=== PATIENT | female | born 1995 | race Caucasian/White ===

== ENCOUNTER 2020-05-22 13:45 | Outpatient (REF) | payer MEDICAID, SELFPAY | END 2020-05-22 13:46 | disposition home or self-care (01) | LOC: HO.LAB 13:45 | PROVIDERS: Visit Provider Internal Medicine | DX: Z20.828 Contact with and (suspected) exposure to other viral communicable diseases (principal) | CPT/HCPCS: C9803; U0003 ==

== ENCOUNTER → 2020-09-27 11:39 | Outpatient (BNVA) | payer MEDICAID, SELFPAY | PROVIDERS: Visit Provider Obstetrics & Gynecology ==

== ENCOUNTER 2020-10-10 09:59 | Outpatient (REF) | payer MEDICAID, SELFPAY ==
[2020-10-10 10:33] LABS: COVID-19 Test Negative (Negative); IDNOW Serial# 55D5AD1C
== END 2020-10-10 10:00 | disposition home or self-care (01) ==
LOC: HO.LAB 09:59
PROVIDERS: Visit Provider Internal Medicine
DX: Z20.822 Contact with and (suspected) exposure to COVID-19 (principal)
CPT/HCPCS: 36415; 87635; C9803

== ENCOUNTER 2021-03-23 13:30 | Emergency (ER) | payer MEDICAID, SELFPAY ==
[2021-03-23 13:33] VITALS: BP 107/56; PULSE 71; RESP 18; TEMP 36.6; O2SAT 98; BMI 31.1
== END 2021-03-23 18:13 | disposition left against medical advice (07) ==
PROVIDERS: Emergency Provider Emergency Medicine; PCP Family Medicine
DX: R51.9 Headache, unspecified (principal)
CPT/HCPCS: 99281; 99282

== ENCOUNTER 2022-02-20 19:01 | Emergency (ER) | payer MEDICAID, SELFPAY | END 2022-02-20 21:36 | disposition left against medical advice (07) | PROVIDERS: Emergency Provider Emergency Medicine | DX: R10.30 Lower abdominal pain, unspecified (principal) ==

== ENCOUNTER 2022-03-18 16:57 | Outpatient (REF) | payer MEDICAID, SELFPAY | END 2022-03-18 16:58 | disposition home or self-care (01) | LOC: HO.LNP 16:57 | PROVIDERS: Visit Provider Obstetrics & Gynecology | DX: Z32.02 Encounter for pregnancy test, result negative (principal); R87.612 Low grade squamous intraepithelial lesion on cytologic smear of cervix (LGSIL) | CPT/HCPCS: 57454; 81025; 88305 ==

== ENCOUNTER → 2022-04-01 14:55 | Outpatient (BNVA) | payer MEDICAID, SELFPAY | PROVIDERS: Visit Provider Obstetrics & Gynecology | DX: Z01.818 Encounter for other preprocedural examination (principal); N87.0 Mild cervical dysplasia | CPT/HCPCS: 99212 ==

== ENCOUNTER 2022-09-11 08:14 | Emergency (ER) | payer MEDICAID, SELFPAY ==
--- NOTE | ~2022-09-11 | CT_ITS ---
EXAMINATION: CT HEAD WITHOUT CONTRAST CLINICAL INFORMATION: History of stabbing headache. COMPARISON: 03/21/2019 TECHNIQUE: Contiguous axial imaging was performed from the skull base to vertex without intravenous administration of contrast. This CT examination was performed using dose optimization techniques as appropriate, variously including the following: *Automated exposure control *Adjustment of mA and/or kV according to patient size (this includes techniques or standardized protocols for targeted exams where dose is matched to indication/reason for exam; i.e. extremities or head) *Use of iterative reconstruction technique DLP: 690 mGy-cm FINDINGS: The brain parenchyma has normal attenuation. The ya-white matter differentiation is well preserved. No evidence of an acute major vascular territory infarction. No intracranial hemorrhage, extra-axial fluid collection, focal mass effect or midline shift. The ventricles have normal size and configuration; no hydrocephalus. The brainstem and cerebellum have a normal appearance. The cerebellar tonsils are in normal position. The calvarium is intact. The visualized paranasal sinuses, mastoid air cells and middle ear cavities are well aerated. The orbits and globes are unremarkable. The temporomandibular joints are normal. CT/CT head/brain wo IV con IMPRESSION: No acute intracranial pathology.
[2022-09-11 08:19] VITALS: BP 108/48; PULSE 76; RESP 18; TEMP 36.6; O2SAT 99; BMI 31.4
--- NOTE | 2022-09-11 08:31 | ED_ITS ---
HPI - General Adult General Chief complaint: Headache Stated complaint: Stabbing pain in head Time Seen by Provider: 09/11/22 08:30 Source: patient Mode of arrival: ambulatory Limitations: no limitations History of Present Illness HPI narrative: 27 y.o female w/ a PMHx of migraines, TONI 1, who presents to the ED from home c/o of severe R-sided headache with R eye involvement. Patient states she woke up suddenly from her sleep at 3am w/ sharp eye and head pain, associated with dizziness, nausea, bilateral leg weakness, and R-sided visual disturbances, described as flashing bright light which lasted 2 hours. She reports that these symptoms are unlike her typical migraines, which usually have an insidious onset and are not as painful. Her symptoms have mostly resolved, but continues to have a diffuse headache and some intermittent dizziness. She denies previous head trauma, fevers, chills, loss of vision, vomiting, current weakness, numbness or tingling, or trouble speaking/swallowing. Onset (ago): hour(s) Location: head Severity: mild Severity scale (1-10): 3 Quality: dull Pain Consistency: constant Relieving factors: none Exacerbating factors: none Associated symptoms: denies other symptoms Treatments prior to arrival: none Related Data Home Medications Medication Instructions Recorded Confirmed diclofenac sodium 1 % topical gel 2 g topical BID PRN pain 06/09/22 06/09/22 fluticasone propionate 50 2 spray intranasal DAILY 06/09/22 06/09/22 mcg/actuation nasal spray,suspension loratadine 5 mg-pseudoephedrine ER 1 tab PO Q12H 06/09/22 06/09/22 120 mg tablet,extended release,12hr (Claritin-D 12 Hour) Allergies Allergy/AdvReac Type Severity Reaction Status Date / Time amoxicillin [Amoxicillin] Allergy Intermediate SEVERE Verified 05/26/22 15:14 FACIAL SWELLING Penicillins Allergy Intermediate SEVERE Verified 05/05/22 08:56 FACIAL SWELLING Review of Systems Constitutional: Constitutional: Reports no additional constitutional complaints, Denies chills, Denies fever(s), Reports headache(s) and Denies night sweats Eyes: Eyes: Reports no additional eye complaints, Denies blurry vision, Denies change in vision, Denies diplopia, Denies eye discharge, Denies loss of peripheral vision, Denies loss of vision and Denies eye pain ENT: Reports headache(s) Cardiovascular: Cardiovascular: Reports no additional cardiovascular complaints, Denies chest pain, Denies lightheadedness, Denies Loss of Consciousness and Denies dyspnea Respiratory: Respiratory: Reports no additional respiratory complaints and Denies dyspnea Gastrointestinal: Gastrointestinal: Reports no additional gastrointestinal complaints, Denies abdominal pain, Denies melena, Denies hematochezia, Denies change in bowel habits, Denies change in stool character, Reports nausea and Denies vomiting Genitourinary: Genitourinary: Denies hematuria, Denies urinary frequency, Denies dysuria, Denies urinary incontinence, Denies urinary hesitancy and Denies urinary urgency Musculoskeletal: Musculoskeletal: Reports no additional musculoskeletal complaints, Reports muscle weakness (Bilateral legs ), Denies numbness and Denies tingling Neurologic: Denies Abnormal speech present, Denies confusion, Reports headache(s), Denies loss of vision, Denies numbness and Denies tingling Psychiatric: Psychiatric: Reports no additional psychiatric complaints and Denies confusion Endocrine: Endocrine: Reports no additional endocrine complaints Hematologic/Lymphatic: Hematologic/Lymphatic: Reports no additional hematologic/lymphatic complaints Allergic/Immunologic: Allergic/Immunologic: Reports no additional allergic/immunologic complaints PMFSH Past Medical History Attestation statement: The following information was validated with the patient. Source: old records reviewed and nursing notes reviewed Medical History Anxiety Cyst of brain FHx: migraine headaches Surgical History History of appendectomy Hx of section Social History Social History Alcohol intake: current Alcohol intake frequency: holidays/special occasions only Alcohol type: wine Smoked in Last 30 Days: No Use of substances other than those prescribed or required for medical reasons: Yes Substance Use Type: Marijuana Substance Use Frequency: Occasionally Advance Directives: No Advance Directives Information Provided: Yes Patient : No Physical Exam ED Vital Signs: Vital Signs - 24 hr 09/11/22 08:19 09/11/22 09:01 09/11/22 09:53 Temperature 98 F Pulse Rate 76 71 62 Respiratory Rate 18 16 18 Blood Pressure 108/48 L 102/52 L 102/66 Pulse Oximetry 99 98 99 Oxygen Delivery Method Room Air Room Air Room Air 09/11/22 10:56 Temperature Pulse Rate 60 Respiratory Rate 16 Blood Pressure 112/73 Pulse Oximetry 100 Oxygen Delivery Method Room Air BMI result Body Mass Index 31.4 Const General: cooperative, no acute distress, alert and awake; No confusion Nutritional Appearance: well nourished Orientation/consciousness: patient oriented x3 and No confusion Limitations: no limitations HENMT Head: Yes normal to inspection and Yes atraumatic Ears: hearing grossly normal bilaterally and external ears normal General nose exam: Normal external nose present, no nasal discharge noted and no epistaxis Face and sinus: Yes normal facial exam, No abrasion and No laceration Mouth: Normal oral and palatal mucosa present, no drooling and no muffled voice Eyes General: appearance normal, both eyes and all related structures Periorbital: periorbital findings normal Eyelids: Yes eyelids normal Conjunctivae: conjunctivae normal Pupils: Equal, round and reactive pupils present EOM: EOMs intact bilaterally Neck Neck: Yes normal visual inspection, Yes full ROM, Yes no lymphadenopathy and Yes no meningeal signs Chest Chest palpation & inspection: normal inspection of the chest Resp Effort & Inspection: normal respiratory effort and able to speak in complete sentences Auscultation: clear to auscultation bilaterally Cardio Rate: regular rate Heart sounds: S1 normal heart sound present and S2 normal heart sound present GI Inspection: Yes normal to inspection Palpation (GI): Soft to palpation, not firm, nontender, no guarding and not rigid Neuro General: patient oriented x3, moves all extremities, Normal light touch and pain sensation, no meningeal signs, no focal motor deficits, CN's II-XI intact bilaterally and No confusion Cranial nerves: Yes CN's II-XII intact bilaterally and Yes Equal, round and reactive pupils present Cognition (Neuro): normal cognition Speech: No Abnormal speech present Motor exam (neuro): 5/5 motor strength present throughout Sensory Exam: Normal double simultaneous stimulation for sensation Coordination: [id number] test normal Extrem General: Yes normal to inspection, Yes full ROM and Yes capillary refill normal Psych Appearance: grossly normal Mental Status: mental status grossly normal Affect: normal affect Attitude: cooperative Thought process: Normal thought process present Thought content: Normal thought content present Insight: Good insight present (Psych) Medications Administered Discontinued Medications Generic Name Dose Route Start Last Admin Trade Name Freq PRN Reason Stop Dose Admin Sodium Chloride 1,000 mls @ 999 mls/hr 09/11/22 08:45 09/11/22 10:55 Ns IV 09/11/22 09:45 Infused .Q1H1M JEAN PAUL Infusion Ketorolac Tromethamine 15 mg 09/11/22 08:37 09/11/22 09:50 Ketorolac Tromethamine 15 Mg/Ml Vial IVPUSH 09/11/22 08:38 15 mg ONCE ONE Administration Ondansetron HCl 4 mg 09/11/22 08:37 09/11/22 09:50 Ondansetron Hcl 4 Mg/2 Ml Vial IVPUSH 09/11/22 08:38 4 mg ONCE ONE Administration Medical Decision Making Medical Decision Making MDM Narrative: 27 y.o female w/ a PMHx of migraines, TONI 1, who presents to the ED from home c/o of severe R-sided headache with R eye involvement. Patient states she woke up suddenly from her sleep at 3am w/ sharp eye and head pain, associated with dizziness, nausea, bilateral leg weakness, and R-sided visual disturbances, described as flashing bright light which lasted 2 hours. On exam patient is well-appearing, NAD, VSS. Neruo exam shows PERRLA, no facial droop or slurred speech appreciated. CN I-XII intact. Moving all 4 extremities with sensation intact. Patient's lab work was unremarkable. Patient's head CT was unremarkable. Patient was given IV toradol, fluids, and Zofran which she stated helped her symptoms significantly. I stressed the importance of the patient following up with her primary care provider and a neurologist. I stressed the importance of the patient returning to the emergency department immediately if her symptoms were to worsen or if she were to develop any dizziness, nausea, vomiting, blurry vision, double vision, chest pain, shortness of breath, or any other symptoms. Patient verbalized agreement and understanding with this treatment plan and discharge. Differential Diagnosis Differential Diagnoses: The differential diagnosis associated with the presentation includes complex migraine Lab Data [facility] Lab Attestation statement: I reviewed the patient's lab results. 09/11/22 09:17 09/11/22 09:17 Labs: Lab Results 09/11/22 09/11/22 Range/Units 09:17 09:17 WBC 8.5 (4.8-10.8) X10*3/uL RBC 4.58 (4.20-5.50) X10*6/uL Hgb 13.1 (12.0-16.0) g/dl Hct 40.8 (37.0-47.0) % MCV 89.1 (80.0-98.0) fL MCH 28.6 (27.0-33.0) pg MCHC 32.1 (31.0-35.0) g/dl RDW 13.4 (11.0-16.0) % Plt Count 310 (160-400) X10*3/uL MPV 9.5 (9.4-12.3) fL Immature Gran % (Auto) 0.2 (0.0-0.4) % Neut % (Auto) 75.8 H (45-73) % Lymph % (Auto) 16.3 L (20-40) % [place] % (Auto) 6.6 (2-11) % Eos % (Auto) 0.7 (0-4) % Baso % (Auto) 0.4 (0-2) % Lymph # (Auto) 1.4 (1.2-4.9) X10*3/uL [place] # (Auto) 0.6 (0.1-1.2) X10*3/uL Eos # (Auto) 0.1 (0.0-0.4) X10*3/uL Baso # (Auto) 0.0 (0.0-0.2) X10*3/uL Abs Immat Gran (auto) 0.02 (0.00-0.03) X10*3/uL Absolute Neuts (auto) 6.4 (2.0-8.3) x10*3/uL Absolute Nucleated RBC 0.000 (0.0-0.012) X10*3/uL Nucleated RBC % (auto) 0.0 (0.0-0.2) /100WBC Sodium 139 (135-145) mmol/L Potassium 4.2 (3.3-5.1) mmol/L Chloride 103 (96-108) mmol/L Carbon Dioxide 28 (22-29) mmol/L Anion Gap 12 (12-20) BUN 13 (9-16) mg/dL Creatinine 0.78 (0.5-1.4) mg/dL Estim Creat Clear Calc 119.2 Estimated GFR > 60 Random Glucose 99 (60-115) mg/dL Calcium 8.9 (8.4-10.2) mg/dL Magnesium 2.0 (1.6-2.6) mg/dL Total Bilirubin 0.4 (0.0-1.0) mg/dL AST 21 (5-31) U/L ALT 15 (0-31) U/L Alkaline Phosphatase 43 (39-117) U/L Total Protein 7.0 (6.5-8.0) g/dL Albumin 4.0 (3.5-5.0) g/dL Beta HCG, Quant < 2 mIU/mL Independent Interpretation I performed an independent interpretation of an: CT Scan Interpretation: My interpretation is in agreement with the radiologist's impression of this imaging study. EXAMINATION: CT HEAD WITHOUT CONTRAST CLINICAL INFORMATION: History of stabbing headache.? COMPARISON: 03/21/2019? TECHNIQUE: Contiguous axial imaging was performed from the skull base to vertex without intravenous administration of contrast. This CT examination was performed using dose optimization techniques as appropriate, variously including the following: *Automated exposure control *Adjustment of mA and/or kV according to patient size (this includes techniques or standardized protocols for targeted exams where dose is matched to indication/reason for exam; i.e. extremities or head) *Use of iterative reconstruction technique DLP: 690 mGy-cm FINDINGS: The brain parenchyma has normal attenuation. The ya-white matter differentiation is well preserved. No evidence of an acute major vascular territory infarction. No intracranial hemorrhage, extra-axial fluid collection, focal mass effect or midline shift. The ventricles have normal size and configuration; no hydrocephalus. The brainstem and cerebellum have a normal appearance. The cerebellar tonsils are in normal position. The calvarium is intact. The visualized paranasal sinuses, mastoid air cells and middle ear cavities are well aerated. The orbits and globes are unremarkable. The temporomandibular joints are normal. CT/CT head/brain wo IV con IMPRESSION: No acute intracranial pathology. Dictated By: Jake Ma MD Signed By: Electronically signed by Jake Ma MD 09/11/22 0921 Discharge Plan Discharge Clinical Impression: Migraine Patient Disposition: Home, Self-Care Instructions: Migraine Headache (ED) Additional Instructions: Follow up with your primary care provider. Return to the emergency department immediately if your symptoms worsen or if you develop any dizziness, shortness of breath, difficulty breathing, chest pain, blurry vision, loss of vision, nausea, vomiting, abdominal pain, fever, chills, back pain, or any other complaints. Prescriptions: No Action Claritin-D 12 Hour 5-120 mg Tablet Extended Release 12 Hr 1 tab PO Q12H fluticasone propionate 50 mcg/actuation spray,suspension 2 spray intranasal DAILY diclofenac sodium 1 % gel 2 g topical BID PRN (Reason: pain) Referrals: [facility] [place] Group] (Call to establish and follow up with a neurologist. ) Maryanne Crockett MD [Primary Care Provider] - Stand Alone Forms: Work/School Release Interventions: ED Discharge Assessment Last Done: 09/11/22 10:56 Discharge Date/Time: 09/11/22 10:58 Print Language: Macedonian
--- NOTE | 2022-09-11 08:59 | PC.NURSE ---
Patient felt well all day yesterday and when she went to bed but at 0300 she woke from sleep with a sharp pain starting behind her eyes and going up all in her head. Patient with hx of migraines but states this one felt different. Patient took excedrin this morning and iced her head. Symptoms are better but patient wanted to get checked out because the whole ordeal freaked her out.
[2022-09-11 09:01] VITALS: BP 102/52; PULSE 71; RESP 16; O2SAT 98
[2022-09-11 09:33] LABS: MANUAL DIFF FLAG NO
[2022-09-11 09:41] LABS: Basophils Percent Auto 0.4 % (0-2); Eosinophils Absolute Auto 0.1 X10*3/uL (0.0-0.4); Eosinophils Percent Auto 0.7 % (0-4); Hematocrit 40.8 % (37.0-47.0); Hemoglobin 13.1 g/dl (12.0-16.0); Imm Gran Abs Auto 0.02 X10*3/uL (0.00-0.03); Imm Gran Pct Auto 0.2 % (0.0-0.4); Lymphocytes Absolute Auto 1.4 X10*3/uL (1.2-4.9); Lymphocytes Percent Auto 16.3 % (20-40); Mean Corpuscular HGB Conc 32.1 g/dl (31.0-35.0); Mean Corpuscular Hemoglobin 28.6 pg (27.0-33.0); Mean Corpuscular Volume 89.1 fL (80.0-98.0); Mean Platelet Volume 9.5 fL (9.4-12.3); Monocytes Absolute Auto 0.6 X10*3/uL (0.1-1.2); Monocytes Percent Auto 6.6 % (2-11); Neutrophils Absolute Auto 6.4 x10*3/uL (2.0-8.3); Neutrophils Percent Auto 75.8 % (45-73); Platelet Count 310 X10*3/uL (160-400); Red Blood Count 4.58 X10*6/uL (4.20-5.50); Red Cell Distribution Width 13.4 % (11.0-16.0); White Blood Count 8.5 X10*3/uL (4.8-10.8)
[2022-09-11] MEDS: Ketorolac Tromethamine 15 MG/ML VIAL IVPUSH (09:50)
[2022-09-11] MEDS: 0.9 % Sodium Chloride 1,000 ML 999 ML IV (09:50)
[2022-09-11] MEDS: ondansetron HCL 4 MG/2 ML VIAL IVPUSH (09:50)
[2022-09-11 09:53] VITALS: BP 102/66; PULSE 62; RESP 18; O2SAT 99
--- NOTE | 2022-09-11 09:56 | PC.NURSE ---
pt is alert and oriented, skin appropriate for ethnicity, respirations even and unlabored, pt reports having a headache-hx of migraines with nausea but denies light and noise sensitivity, pain at 5/10 but also states feeling lightheaded/dizzy, vs stable and all neuro intact
[2022-09-11 09:59] LABS: Alanine Aminotransferase 15 U/L (0-31); Alkaline Phosphatase 43 U/L (39-117); Anion Gap 12 (12-20); Aspartate Amino Transferase 21 U/L (5-31); Bilirubin Total 0.4 mg/dL (0.0-1.0); Blood Urea Nitrogen 13 mg/dL (9-16); Calcium 8.9 mg/dL (8.4-10.2); Carbon Dioxide 28 mmol/L (22-29); Chloride 103 mmol/L (96-108); Creatinine Clr Calc Pharmacy 119.2; Estimated Glomerular Filt Rate > 60; Glucose Random 99 mg/dL (60-115); HCG Quantitative < 2 mIU/mL; Potassium 4.2 mmol/L (3.3-5.1); Sodium 139 mmol/L (135-145)
[2022-09-11 10:56] VITALS: BP 112/73; PULSE 60; RESP 16; O2SAT 100
== END 2022-09-11 10:58 | disposition home or self-care (01) ==
PROVIDERS: Physician Assistant Medical; Emergency Provider Emergency Medicine; PCP Family Medicine
DX: G43.909 Migraine, unspecified, not intractable, without status migrainosus (principal); F12.90 Cannabis use, unspecified, uncomplicated
CPT/HCPCS: 36415; 70450; 80053; 83735; 84702; 85025; 96361; 96374; 96375; 99284; 99285; J1885; J2405

== ENCOUNTER 2023-02-02 19:27 | Outpatient (REF) | payer BC, SELFPAY ==
[2023-02-07 09:44] LABS: HPV mRNA E6/E7 rflx Not Detected (Not Detected)
== END 2023-02-02 19:28 | disposition home or self-care (01) ==
LOC: HO.HHCLNP 19:27
PROVIDERS: Visit Provider Advanced Practice Midwife
DX: R87.612 Low grade squamous intraepithelial lesion on cytologic smear of cervix (LGSIL) (principal)
CPT/HCPCS: 87624; 88142

== ENCOUNTER 2023-02-19 11:43 | Outpatient (REF) | payer BC, SELFPAY ==
[2023-02-19 13:44] LABS: MANUAL DIFF FLAG NO
[2023-02-19 13:54] LABS: Basophils Percent Auto 0.4 % (0-2); Eosinophils Absolute Auto 0.1 X10*3/uL (0.0-0.4); Eosinophils Percent Auto 0.7 % (0-4); Hematocrit 41.9 % (37.0-47.0); Hemoglobin 13.7 g/dl (12.0-16.0); Imm Gran Abs Auto 0.01 X10*3/uL (0.00-0.03); Imm Gran Pct Auto 0.1 % (0.0-0.4); Lymphocytes Absolute Auto 1.4 X10*3/uL (1.2-4.9); Lymphocytes Percent Auto 20.2 % (20-40); Mean Corpuscular HGB Conc 32.7 g/dl (31.0-35.0); Mean Corpuscular Hemoglobin 28.8 pg (27.0-33.0); Mean Platelet Volume 10.5 fL (9.4-12.3); Monocytes Absolute Auto 0.6 X10*3/uL (0.1-1.2); Monocytes Percent Auto 8.6 % (2-11); Neutrophils Absolute Auto 4.7 x10*3/uL (2.0-8.3); Platelet Count 278 X10*3/uL (160-400); Red Blood Count 4.76 X10*6/uL (4.20-5.50); Red Cell Distribution Width 12.9 % (11.0-16.0); White Blood Count 6.7 X10*3/uL (4.8-10.8)
[2023-02-19 14:26] LABS: Alanine Aminotransferase 40 U/L (0-31); Albumin Level 4.3 g/dL (3.5-5.0); Alkaline Phosphatase 39 U/L (39-117); Anion Gap 12 (12-20); Aspartate Amino Transferase 142 U/L (5-31); Bilirubin Total 0.6 mg/dL (0.0-1.0); Blood Urea Nitrogen 12 mg/dL (9-16); Calcium 9.5 mg/dL (8.4-10.2); Carbon Dioxide 27 mmol/L (22-29); Chloride 104 mmol/L (96-108); Estimated Glomerular Filt Rate > 60; Glucose Random 82 mg/dL (60-115); Sodium 139 mmol/L (135-145); Total Protein 7.8 g/dL (6.5-8.0)
[2023-02-19 14:43] LABS: TSH reflex Free T4 0.56 uIU/mL (0.32-4.0)
[2023-02-19 15:36] LABS: Rheumatoid Factor < 13.0 IU/mL (<15.0)
[2023-02-19 15:42] LABS: CT PCR NOT DETECTED (Not Detect.); NG PCR NOT DETECTED (Not Detect.)
[2023-02-19 16:20] LABS: Erythrocyte Sedimentation Rate 18 MM/HR (0-20)
[2023-02-20 03:53] LABS: Syphilis Screen Nonreactive (Nonreactive)
[2023-02-20 04:05] LABS: ~HepC Num1 0.15 S/CO (0.00-0.79); ~Hepatitis C Antibody Nonreactive (Nonreactive)
[2023-02-20 04:11] LABS: HBS Num1 5.88 mIU/mL (0-7.99); HBc Num1 0.14 S/CO (0.00-0.79); HBsAGNum1 0.36 S/CO (0.00-0.99); HIV AB/AG Nonreactive (Nonreactive); HIV Num 1 0.06 S/CO (0.00-0.99); Hepatitis B Core Antibody Nonreactive (Nonreactive); Hepatitis B Surface Antigen Negative (Negative); ~Hepatitis B Surface Antibody NONREACTIVE (Nonreactive)
[2023-02-20 16:48] LABS: Cyclic Citrullinated Peptide <16 UNITS
[2023-02-24 10:58] LABS: Anti Nuclear Antibody Screen POSITIVE (NEGATIVE)
== END 2023-02-19 11:44 | disposition home or self-care (01) ==
LOC: HO.HHCL 11:43
PROVIDERS: Visit Provider Family Medicine
DX: Z11.4 Encounter for screening for human immunodeficiency virus [HIV] (principal); M25.60 Stiffness of unspecified joint, not elsewhere classified; Z20.2 Contact with and (suspected) exposure to infections with a predominantly sexual mode of transmission; Z13.29 Encounter for screening for other suspected endocrine disorder
CPT/HCPCS: 0353U; 80053; 84443; 85025; 85652; 86038; 86039; 86140; 86200; 86431; 86704; 86706; 86780; 86803; 87340; 87389

== ENCOUNTER 2023-02-26 16:07 | Outpatient (REF) | payer BC, SELFPAY ==
--- NOTE | ~2023-02-26 | XR_ITS ---
EXAMINATION: XR CHEST CLINICAL INFORMATION: Chest pain. COMPARISON: None available. TECHNIQUE: 2 views of the chest were obtained. FINDINGS: No significant abnormality is noted involving the heart, lungs, mediastinum, bony thorax or soft tissues. XR/XR chest 2V IMPRESSION: No acute cardiopulmonary process.
== END 2023-02-26 16:08 | disposition home or self-care (01) ==
LOC: HO.HHCX 16:07
PROVIDERS: Visit Provider Internal Medicine
DX: R07.9 Chest pain, unspecified (principal)
CPT/HCPCS: 71046

== ENCOUNTER 2023-03-12 13:01 | Outpatient (REF) | payer BC, SELFPAY ==
--- NOTE | ~2023-03-12 | US_ITS ---
EXAMINATION: US ABDOMEN COMPLETE CLINICAL INFORMATION: Transaminitis. COMPARISON: Ultrasound pelvis 04/11/2015 and 04/06/2014. CT abdomen and pelvis 11/19/2010. TECHNIQUE: Real-time imaging of the abdominal viscera. FINDINGS: PANCREAS: Normal. ABDOMINAL AORTA: The proximal, mid, and distal segments are normal in caliber. INFERIOR VENA CAVA: Visualized portions are normal. LIVER: Normal. The liver is normal in size. The liver contour is normal. Parenchymal echogenicity is normal. No focal hepatic lesion. There is no intrahepatic biliary duct dilatation seen. GALLBLADDER: Normal. The gallbladder is physiologically distended without evidence of stones, sludge, polyps, wall thickening or pericholecystic fluid. COMMON BILE DUCT: Normal in caliber measuring 0.3 cm in diameter. RIGHT KIDNEY: Normal. No hydronephrosis. No renal calculi or focal parenchymal lesions. The kidney measures 10.0 cm in maximum dimension. LEFT KIDNEY: Normal. No hydronephrosis. No renal calculi or focal parenchymal lesions. The kidney measures 10.7 cm in maximum dimension. SPLEEN: Normal. The spleen measures 8.7 cm in maximum dimension. FREE FLUID: None. US/US abdomen complete IMPRESSION: Unremarkable examination.
== END 2023-03-12 13:02 | disposition home or self-care (01) ==
LOC: HO.US 13:01
PROVIDERS: PCP Family Medicine; Visit Provider Family Medicine
DX: R74.01 Elevation of levels of liver transaminase levels (principal)
CPT/HCPCS: 76700

== ENCOUNTER 2023-03-31 13:02 | Outpatient (AMB) | payer BC, MEDICAID, SELFPAY ==
--- NOTE | 2023-03-31 13:12 | MHC.OFFVIS ---
Intake Vital Signs 03/31/23 13:13 Height 5 ft 6 in Weight 185 lb 10.067 oz BMI 30.0 BP 110/72 Blood Pressure Location Rt brachial Position Sitting Pulse 72 Pulse Source Pulse Oximeter Pulse Oximetry (%) 99 Intake Visit Reasons: + YORDAN Intake Note: New pt presents today for abnormal lab consult. C/o pain in multiple areas. Sack Repairer Required: No Accompanied by: Self / Same As Patient Allergies amoxicillin [Amoxicillin] Allergy (Intermediate, Verified 03/31/23 13:15) SEVERE FACIAL SWELLING Penicillins Allergy (Intermediate, Verified 03/31/23 13:15) SEVERE FACIAL SWELLING Medication List - Last Reconciled 03/31/23 by Kerri Purdy MD cyclobenzaprine 10 mg PO BEDTIME escitalopram oxalate 10 mg PO DAILY fluticasone propionate 50 mcg/actuation 2 sprays intranasal DAILY valacyclovir 1,000 mg PO BID HPI HPI Comments History of Present Illness Details This is a 27-year-old female who presents for evaluation of a positive YORDAN. Patient states that she was diagnosed with scoliosis at age 15 and was evaluated by Orthopedics and was told that no surgery is needed. Since then she has been doing physical therapy. She also does exercises and stretches at home. About a year ago she has been having pain in her neck, shoulders, intermittent stiffness of her hands. She denies any skin rashes. Denies any swollen joints. She is unaware of any family history of autoimmune rheumatic disease. States that her fingers get pale in the cold. Denies any history of DVT/PE. She had 3 pregnancies and 1 miscarriage. Recently she has been exercising. She goes to the gym about twice a week, does treadmill and occasionally does stair master. States that she gets burning and tingling in her knees with running. [facility] Medical History (Updated 03/31/23 @ 13:51 by Kerri Purdy MD) Cyst of brain FHx: migraine headaches Anxiety Surgical History Hx of section History of appendectomy Family History Mother No problems noted. 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 Reproductive History Menstrual Age of Menarche: 9 Total pregnancies: 3 Number of Living Children: 2 Ab spontaneous: 1 Review of Systems Const Reports fatigue and Reports weakness ENT Reports dry mouth GI Reports constipation Musc Reports numbness and Reports tingling Skin/Breast Reports unusual bruising Neuro Reports numbness, Reports tingling and Reports weakness Psych Reports abnormal sleep pattern, Reports anxiety and Reports depression Endo Reports fatigue Physical Exam Vital Signs: Last Vital Signs Pulse 72 03/31/23 13:13 BP 110/72 03/31/23 13:13 Pulse Ox 99 03/31/23 13:13 BMI result Body Mass Index 30.0 Const General: cooperative, healthy appearing and comfortable Nutritional Appearance: overweight Orientation/consciousness: patient oriented x3 Limitations: no limitations HEENT Head: Yes normocephalic and Yes atraumatic Mouth: moist mucous membranes Resp Effort & Inspection: normal respiratory effort and able to speak in complete sentences Auscultation: clear to auscultation bilaterally Cardio Rate: regular rate Rhythm: regular rhythm Heart sounds: S1 normal heart sound present and S2 normal heart sound present GI Inspection: No distended Palpation (GI): Soft to palpation and nontender Skin General skin exam: no rashes or lesions noted Neuro General: patient oriented x3 Extrem Other: High active synovitis Proximal muscle strength 5/5 all 4 extremities Normal nailfold capillaroscopy Assessment & Plan Assessment & Plan (1) YORDAN positive: Code(s): R76.8 - Other specified abnormal immunological findings in serum Plan: This is a 27-year-old female who presents for evaluation of diffuse pain. Recent labs showed a positive YORDAN 1-320 dfs pattern and transaminitis. Will order comprehensive serology to screen for underlying autoimmune rheumatic disease. Patient has multiple features of fibromyalgia. I gave patient a printout of fibromyalgia symptoms and treatment. To be discussed further next visit (2) Transaminitis: Code(s): R74.01 - Elevation of levels of liver transaminase levels Plan: US abdomen was unremarkable. Will check LFTs as well as muscle enzymes 2 weeks after holding exercise. (3) Fibromyalgia, primary: Code(s): M79.7 - Fibromyalgia Plan: As above Plan I spent 46 minutes reviewing patient's chart, evaluating patient, ordering diagnostic workup, counseling patient and documenting in the chart Orders: Orders Complete Blood Count Auto Diff Today M32.9 - Systemic lupus erythematosus, unspecified Comprehensive Met. Panel Today M32.9 - Systemic lupus erythematosus, unspecified C Reactive Protein Today M32.9 - Systemic lupus erythematosus, unspecified Anti DNA DS Antibody Today M32.9 - Systemic lupus erythematosus, unspecified Complement C4 Today M32.9 - Systemic lupus erythematosus, unspecified Sjogren's Antibodies Today M32.9 - Systemic lupus erythematosus, unspecified Creatine Kinase Total Today R74.01 - Elevation of levels of liver transaminase levels Erythrocyte Sedimentation Rate Today M32.9 - Systemic lupus erythematosus, unspecified Anti Extractable Nuclear Ag Today M32.9 - Systemic lupus erythematosus, unspecified Complement C3 Today M32.9 - Systemic lupus erythematosus, unspecified Protein Creatinine Ratio, Ur Today M32.9 - Systemic lupus erythematosus, unspecified UA w Microscopic Today M32.9 - Systemic lupus erythematosus, unspecified Liver Kidney Microsomal Ab Today R74.01 - Elevation of levels of liver transaminase levels Mitochondrial Antibody Today R74.01 - Elevation of levels of liver transaminase levels Smooth Muscle Antibody Today R74.01 - Elevation of levels of liver transaminase levels Aldolase Today R74.01 - Elevation of levels of liver transaminase levels Gamma Glutamyl Transpeptidase Today R74.01 - Elevation of levels of liver transaminase levels Coding Level of Care Code New Pt Level 4 (39137) Diagnoses YORDAN positive R76.8 Transaminitis R74.01 Fibromyalgia, primary M79.7
[2023-03-31 13:13] VITALS: BP 110/72; PULSE 72; O2SAT 99
== END 2023-03-31 13:45 | disposition home or self-care (01) ==
PROVIDERS: PCP Family Medicine; Referring Provider Family Medicine; Visit Provider Student in an Organized Health Care Education/Training Program
DX: R76.8 Other specified abnormal immunological findings in serum (principal); R74.01 Elevation of levels of liver transaminase levels; M79.7 Fibromyalgia
CPT/HCPCS: 99204

== ENCOUNTER → 2023-03-31 13:02 | Outpatient (BNVA) | payer BC, MEDICAID, SELFPAY | PROVIDERS: PCP Family Medicine; Referring Provider Family Medicine; Visit Provider Student in an Organized Health Care Education/Training Program ==

== ENCOUNTER 2023-11-05 13:16 | Outpatient (REF) | payer BC, MEDICAID, SELFPAY ==
--- NOTE | ~2023-11-05 | XR_ITS ---
EXAMINATION: XR CERVICAL SPINE CLINICAL INFORMATION: Chronic neck pain radiating to right shoulder. Patient states 3 months of pain, denies injury. COMPARISON: None available. TECHNIQUE: 4 views of the cervical spine. FINDINGS: Straightening of the normal cervical lordosis. Bone mineralization is normal. Mild spondylosis in the [id number] cervical spine. Cervical disc space heights are preserved. XR/XR cervical spine 3V IMPRESSION: Mild spondylosis in the [id number] cervical spine.
== END 2023-11-05 13:17 | disposition home or self-care (01) ==
LOC: HO.HHCX 13:16
PROVIDERS: Visit Provider Family Medicine
DX: M54.2 Cervicalgia (principal); G89.29 Other chronic pain
CPT/HCPCS: 72040

== ENCOUNTER 2024-01-16 10:15 | Outpatient (REF) | payer BC, SELFPAY ==
[2024-01-16 10:34] LABS: MANUAL DIFF FLAG NO
[2024-01-16 10:50] LABS: Basophils Percent Auto 0.7 % (0-2); Eosinophils Absolute Auto 0.2 X10*3/uL (0.0-0.4); Eosinophils Percent Auto 2.9 % (0-4); Hematocrit 39.9 % (37.0-47.0); Hemoglobin 13.2 g/dl (12.0-16.0); Imm Gran Abs Auto 0.01 X10*3/uL (0.00-0.03); Imm Gran Pct Auto 0.2 % (0.0-0.4); Lymphocytes Absolute Auto 1.2 X10*3/uL (1.2-4.9); Lymphocytes Percent Auto 20.8 % (20-40); Mean Corpuscular HGB Conc 33.1 g/dl (31.0-35.0); Mean Corpuscular Hemoglobin 29.5 pg (27.0-33.0); Mean Corpuscular Volume 89.1 fL (80.0-98.0); Mean Platelet Volume 10.1 fL (9.4-12.3); Monocytes Absolute Auto 0.4 X10*3/uL (0.1-1.2); Monocytes Percent Auto 7.8 % (2-11); Neutrophils Absolute Auto 3.7 x10*3/uL (2.0-8.3); Neutrophils Percent Auto 67.6 % (45-73); Platelet Count 252 X10*3/uL (160-400); Red Blood Count 4.48 X10*6/uL (4.20-5.50); Red Cell Distribution Width 13.2 % (11.0-16.0); White Blood Count 5.5 X10*3/uL (4.8-10.8)
[2024-01-16 10:51] LABS: Appearance Urine Clear; Color Urine Yellow; Glucose Urine UA Negative (Negative); Leukocyte Esterase Urine Negative (Negative); Nitrite Urine Negative (Negative); Urine Blood Negative (Negative); Urine Ketones Negative (Negative); Urine Protein Negative (Neg-Trace)
[2024-01-16 10:53] LABS: Bacteria Urine None Seen (None Seen); Hyaline Casts Urine 0-2 /LPF (0-2); RBC Urine 0-2 /HPF (0-2); Squamous Epithelial Cell Urine 0-2 /HPF (0-2); WBC Urine 0-5 /HPF (0-5)
[2024-01-16 11:11] LABS: Estimated Average Glucose 100 mg/dL; Hemoglobin A1c % 5.1 % (<6.0)
[2024-01-16 11:38] LABS: Alanine Aminotransferase 13 U/L (0-31); Albumin Level 4.2 g/dL (3.5-5.0); Alkaline Phosphatase 36 U/L (39-117); Anion Gap 11 (12-20); Aspartate Amino Transferase 19 U/L (5-31); Bilirubin Direct 0.1 mg/dL (0.0-0.5); Bilirubin Total 0.4 mg/dL (0.0-1.0); Blood Urea Nitrogen 12 mg/dL (9-16); C Reactive Protein < 0.10 mg/dL (< or = 0.50); Calcium 9.4 mg/dL (8.4-10.2); Carbon Dioxide 26 mmol/L (22-29); Chloride 107 mmol/L (96-108); Cholesterol 158 mg/dL (<200); Estimated Glomerular Filt Rate > 60; Glucose Random 96 mg/dL (60-115); HDL Cholesterol 48 mg/dL (>40); LDL Cholesterol Calculated 99 mg/dL (<100); Potassium 4.1 mmol/L (3.3-5.1); Sodium 140 mmol/L (135-145); Total Protein 7.2 g/dL (6.5-8.0); Triglycerides 59 mg/dL (<150)
[2024-01-16 11:40] LABS: Erythrocyte Sedimentation Rate 13 MM/HR (0-20)
[2024-01-16 11:41] LABS: Creatinine Urine 152.72 mg/dL; Total Protein Urine Random < 7 mg/dL (<12)
[2024-01-16 11:52] LABS: Free T4 (Free Thyroxine) 1.05 ng/dL (0.71-1.85); Thyroid Stimulating Hormone 0.57 uIU/mL (0.32-4.0); Vitamin D 25-OH Total 25.9 ng/mL (>30)
[2024-01-16 12:02] LABS: Gamma Glutamyl Transpeptidase 11 U/L (7-33)
[2024-01-18 21:44] LABS: Anti DNA DS Antibody 10 IU/mL; Antibody to SS-A Antigen <1.0 NEG AI (<1.0 NEG); Antibody to SS-B Antigen <1.0 NEG AI (<1.0 NEG); SM/Ribonucleoprotein Ab <1.0 NEG AI (<1.0 NEG); Smith Protein <1.0 NEG AI (<1.0 NEG)
[2024-01-19 13:48] LABS: Complement C3 65 mg/dL (83-193)
[2024-01-19 15:59] LABS: Mitochondrial Antibodies NEGATIVE (NEGATIVE)
[2024-01-20 10:28] LABS: Aldolase 4.4 U/L (<=8.1)
[2024-01-25 14:13] LABS: Liver Kidney Microsomal Ab <=20.0 U (<=20.0); Smooth Muscle Antibody <20 U (<20)
== END 2024-01-16 10:16 | disposition home or self-care (01) ==
LOC: HO.LAB 10:15
PROVIDERS: Absent Provider Family Medicine; PCP Family Medicine; Visit Provider Student in an Organized Health Care Education/Training Program
DX: M54.2 Cervicalgia (principal); G89.29 Other chronic pain; R07.0 Pain in throat; M32.9 Systemic lupus erythematosus, unspecified; R74.01 Elevation of levels of liver transaminase levels; Z13.1 Encounter for screening for diabetes mellitus
CPT/HCPCS: 36415; 80053; 80061; 80076; 81001; 82085; 82248; 82306; 82550; 82570; 82977; 83036; 84156; 84439; 84443; 85025; 85027; 85652; 86015; 86140; 86160; 86225; 86235; 86376; 86381

== ENCOUNTER 2024-03-29 15:01 | Outpatient (REF) | payer BC, SELFPAY ==
[2024-03-29 16:33] LABS: MANUAL DIFF FLAG NO
[2024-03-29 16:38] LABS: Basophils Absolute Auto 0.1 X10*3/uL (0.0-0.2); Basophils Percent Auto 0.6 % (0-2); Eosinophils Absolute Auto 0.3 X10*3/uL (0.0-0.4); Eosinophils Percent Auto 2.8 % (0-4); Hematocrit 39.7 % (37.0-47.0); Imm Gran Abs Auto 0.04 X10*3/uL (0.00-0.03); Imm Gran Pct Auto 0.4 % (0.0-0.4); Lymphocytes Absolute Auto 1.8 X10*3/uL (1.2-4.9); Lymphocytes Percent Auto 20.6 % (20-40); Mean Corpuscular HGB Conc 32.7 g/dl (31.0-35.0); Mean Corpuscular Hemoglobin 29.2 pg (27.0-33.0); Mean Corpuscular Volume 89.2 fL (80.0-98.0); Mean Platelet Volume 10.1 fL (9.4-12.3); Monocytes Absolute Auto 0.8 X10*3/uL (0.1-1.2); Monocytes Percent Auto 9.4 % (2-11); Neutrophils Absolute Auto 5.9 x10*3/uL (2.0-8.3); Neutrophils Percent Auto 66.2 % (45-73); Platelet Count 276 X10*3/uL (160-400); Red Blood Count 4.45 X10*6/uL (4.20-5.50); Red Cell Distribution Width 12.8 % (11.0-16.0)
[2024-03-29 16:59] LABS: Anion Gap 11 (12-20)
[2024-03-29 17:15] LABS: Ferritin 95 ng/mL (10-122); TSH reflex Free T4 0.45 uIU/mL (0.32-4.0)
[2024-03-29 17:30] LABS: Alanine Aminotransferase 14 U/L (0-31); Alkaline Phosphatase 39 U/L (39-117); Aspartate Amino Transferase 19 U/L (5-31); Bilirubin Total 0.2 mg/dL (0.0-1.0); Blood Urea Nitrogen 11 mg/dL (9-16); Calcium 9.3 mg/dL (8.4-10.2); Carbon Dioxide 27 mmol/L (22-29); Chloride 106 mmol/L (96-108); Estimated Glomerular Filt Rate > 60; Glucose Random 102 mg/dL (60-115); Sodium 140 mmol/L (135-145); Total Protein 6.9 g/dL (6.5-8.0)
== END 2024-03-29 15:02 | disposition home or self-care (01) ==
LOC: HO.HHCL 15:01
PROVIDERS: Visit Provider Family Medicine
DX: R53.83 Other fatigue (principal); K59.00 Constipation, unspecified
CPT/HCPCS: 36415; 80053; 82728; 84443; 85025

== ENCOUNTER 2024-06-08 18:23 | Outpatient (REF) | payer BC, SELFPAY ==
--- OUTSIDE RECORDS SUMMARY | 2024-06-09 03:18 | XMS_ITS ---
Author Organization [facility], Address [address] [place] [address] Care Team Providers Care Shank Piece Tacker Name Role Phone Hortencia Neal Unavailable [phone] ALLERGIES, ADVERSE REACTIONS, ALERTS Substance Code Code System Type Reaction Severity Status Start Date End Date amoxicillin 723 RxNorm Drug allergy () 0 Penicillins Unknown Drug allergy () 1 amoxicillin 723 RxNorm Drug allergy () 1 MEDICATIONS Medication Code Code System Start Date Stop Date Route Dosage Directions Fill Instructions Claritin 019090 RxNorm 4 oral 1 Diflucan 351227 RxNorm 09/11/19 023 oral 1 Macrobid 265288 RxNorm 09/09/19 023 oral 1 Flonase Allergy Relief 5653551 RxNorm 4 intranasal 2 PROBLEMS Problem Name Code Code System Start Date End Date Stat us Screening examination for ot her specified viral diseases (V73.89) [facility] 03/10/2020 Inactive Upper Respiratory Infection, acute (J06.9) 59981357 [facility] 03/15/2022 Inactive Dermatophytosis, unspecified (B35.9) 88928009 [facility] 03/15/2022 Inactive Contact with and (suspected) exposure to COVID-19 (Z20.822) [facility] 03/19/2022 Inactive Fever, unspecified (R50.9) [facility] 03/19/2022 Inactive Respiratory syncytial virus as the cause of diseases classified elsewhere (B97.4) [facility] 03/19/2022 Inactive Dysuria 68215102 [facility] 09/08/2022 Resolved Acute vaginitis 61233489 [facility] 09/10/2022 Reso lved Allergic rhinitis, unspecified 19201990 [facility] 09/03/2023 Active ENCOUNTERS Encounter Diagnosis Code Code System Date Stat us Allergic rhinitis, unspecified 66257527 [facility] 024 Active IMMUNIZATIONS * None VITAL SIGNS Code Code System Vitals Name Date Value and Un its 8462-4 [facility] Blood Pressure-Diastolic 09/03/2023 71 mmHg 8480-6 [facility] Blood Pressure-Systolic 09/03/2023 1 06 mmHg 8867-4 [facility] Heart Rate 09/03/2023 71 /min 9279-1 [facility] Respiratory Rate 09/03/2023 16 /min 8310-5 [facility] Body Temperature 09/03/2023 98.2 F 49799-4 [facility] Oxygen Saturation 09/03/2023 98 % SOCIAL HISTORY * None PROCEDURES * None MEDICAL EQUIPMENT * Patient has no history of implantable devices ASSESSMENT Assessment Take the claritin as prescri bedUse the Flonase as prescribed.Please return if symptoms worsen. TREATMENT PLAN Type Description Date MEDICATION Take 09/03/2023 MEDICATION Take 09/03/2023 APPOINTMENT If not feeling milka r in 3 day(s), please see your primary care physician. If you do not have a primary care physician, please return to this clinic. 09/03/2023 Lab Tests None GOALS * None HEALTH CONCERNS * No Health Concerns FUNCTIONAL AND COGNITIVE STATUS * None CONSULTATION NOTES * None DISCHARGE SUMMARY NOTES * None HISTORY AND PHYSICAL NOTES * Reason for visit - Illness IMAGING NOTES * None LABORATORY REPORT NARRATIVE NOTES * None PATHOLOGY REPORT NARRATIVE NOTES * None PROGRESS NOTES * None
== END 2024-06-08 18:24 | disposition home or self-care (01) ==
LOC: HO.HHCLNP 18:23
PROVIDERS: Visit Provider Nurse Practitioner Family
DX: R32 Unspecified urinary incontinence (principal)
CPT/HCPCS: 87086

== ENCOUNTER 2024-06-14 15:35 | Outpatient (REF) | payer BC, SELFPAY ==
--- OUTSIDE RECORDS SUMMARY | 2024-06-14 15:37 | XMS_ITS ---
Author Organization [facility], Address [address] [place] [address] Care Team Providers Care Motor Equipment Sergeant Name Role Phone Hortencia Neal Unavailable [phone] ALLERGIES, ADVERSE REACTIONS, ALERTS Substance Code Code System Type Reaction Severity Status Start Date End Date amoxicillin 723 RxNorm Drug allergy () 0 Penicillins Unknown Drug allergy () 1 amoxicillin 723 RxNorm Drug allergy () 1 MEDICATIONS Medication Code Code System Start Date Stop Date Route Dosage Directions Fill Instructions Claritin 609215 RxNorm 4 oral 1 Diflucan 268781 RxNorm 09/11/19 023 oral 1 Macrobid 491486 RxNorm 09/09/19 023 oral 1 Flonase Allergy Relief 6726747 RxNorm 4 intranasal 2 PROBLEMS Problem Name Code Code System Start Date End Date Stat us Screening examination for ot her specified viral diseases (V73.89) [facility] 03/10/2020 Inactive Upper Respiratory Infection, acute (J06.9) 83461370 [facility] 03/15/2022 Inactive Dermatophytosis, unspecified (B35.9) 19027620 [facility] 03/15/2022 Inactive Contact with and (suspected) exposure to COVID-19 (Z20.822) [facility] 03/19/2022 Inactive Fever, unspecified (R50.9) [facility] 03/19/2022 Inactive Respiratory syncytial virus as the cause of diseases classified elsewhere (B97.4) [facility] 03/19/2022 Inactive Dysuria 07000264 [facility] 09/08/2022 Resolved Acute vaginitis 38329834 [facility] 09/10/2022 Reso lved Allergic rhinitis, unspecified 07014281 [facility] 09/03/2023 Active ENCOUNTERS Encounter Diagnosis Code Code System Date Stat us Allergic rhinitis, unspecified 72636523 [facility] 024 Active IMMUNIZATIONS * None VITAL SIGNS Code Code System Vitals Name Date Value and Un its 8462-4 [facility] Blood Pressure-Diastolic 09/03/2023 71 mmHg 8480-6 [facility] Blood Pressure-Systolic 09/03/2023 1 06 mmHg 8867-4 [facility] Heart Rate 09/03/2023 71 /min 9279-1 [facility] Respiratory Rate 09/03/2023 16 /min 8310-5 [facility] Body Temperature 09/03/2023 98.2 F 55698-9 [facility] Oxygen Saturation 09/03/2023 98 % SOCIAL [...]
--- OUTSIDE RECORDS SUMMARY | 2024-06-14 15:37 | XMS_ITS ---
Author Organization [facility], Address [address] [place] [address] Care Team Providers Care Assembled Wood Products Repairer Name Role Phone Hortencia Neal Unavailable [phone] ALLERGIES, ADVERSE REACTIONS, ALERTS Substance Code Code System Type Reaction Severity Status Start Date End Date amoxicillin 723 RxNorm Drug allergy () 0 Penicillins Unknown Drug allergy () 1 amoxicillin 723 RxNorm Drug allergy () 1 MEDICATIONS Medication Code Code System Start Date Stop Date Route Dosage Directions Fill Instructions Claritin 188957 RxNorm 4 oral 1 Diflucan 879326 RxNorm 09/11/19 023 oral 1 Macrobid 212263 RxNorm 09/09/19 023 oral 1 Flonase Allergy Relief 6280844 RxNorm 4 intranasal 2 PROBLEMS Problem Name Code Code System Start Date End Date Stat us Screening examination for ot her specified viral diseases (V73.89) [facility] 03/10/2020 Inactive Upper Respiratory Infection, acute (J06.9) 65653154 [facility] 03/15/2022 Inactive Dermatophytosis, unspecified (B35.9) 85573655 [facility] 03/15/2022 Inactive Contact with and (suspected) exposure to COVID-19 (Z20.822) [facility] 03/19/2022 Inactive Fever, unspecified (R50.9) [facility] 03/19/2022 Inactive Respiratory syncytial virus as the cause of diseases classified elsewhere (B97.4) [facility] 03/19/2022 Inactive Dysuria 17007389 [facility] 09/08/2022 Resolved Acute vaginitis 87127741 [facility] 09/10/2022 Reso lved Allergic rhinitis, unspecified 87883056 [facility] 09/03/2023 Active ENCOUNTERS Encounter Diagnosis Code Code System Date Stat us Allergic rhinitis, unspecified 28924603 [facility] 024 Active IMMUNIZATIONS * None VITAL SIGNS Code Code System Vitals Name Date Value and Un its 8462-4 [facility] Blood Pressure-Diastolic 09/03/2023 71 mmHg 8480-6 [facility] Blood Pressure-Systolic 09/03/2023 1 06 mmHg 8867-4 [facility] Heart Rate 09/03/2023 71 /min 9279-1 [facility] Respiratory Rate 09/03/2023 16 /min 8310-5 [facility] Body Temperature 09/03/2023 98.2 F 35382-0 [facility] Oxygen Saturation 09/03/2023 98 % SOCIAL HISTORY [...]
== END 2024-06-14 15:36 | disposition home or self-care (01) ==
LOC: HO.US 15:35
PROVIDERS: PCP Internal Medicine; Visit Provider Internal Medicine
DX: R32 Unspecified urinary incontinence (principal)
CPT/HCPCS: 76857

== ENCOUNTER 2024-08-19 15:00 | Outpatient (AMB) | payer BC, SELFPAY ==
--- OUTSIDE RECORDS SUMMARY | 2024-08-19 15:11 | XMS_ITS | Encounter Summary ---
Author Organization [employer] Address [address] [facility] 7t [place] [address] Care Team Providers Care Tool Honing Machine Set Up Operator Name Role Phone Maryanne Crockett MD Primary Care Provider [phone] Encounter Details Date Type Department Care Team ([facility] st Contact Info) Description 06/19/2023 Orders Only [facility] MEDICINE [address] [place], [place] [phone] Maryanne Crockett MD [address] [place], [place] [phone] Social History Tobacco Use Types Packs/Day Years Used Date Smoking Tobacco: Never Passive Smoke Exposure: Never Smokeless Tobacco: Never Alcohol Use Standard Drinks/Week Comments Never 0 (1 standard drink = 0.6 oz pur e alcohol) Depression Answer Date Recorded Patient Health Questionnaire-9 Score 12 04/21/2023 Patient Health Questionnaire-9 Score 12 04/21/2023 Last PHQ-9: Questionnaire Data Not on file 1 Housing Stability Answer Date Recorded What is your housing situation today? I have carl noriega 04/13/[address] you li ve. Do you have problems with any of the following? None of the above 04/13/2023 Food Insecurity Answer Date Recorded Within the past 12 months, y ou worried that your food would run out before you got money to buy more: Never True 04/13/2023 Within the past 12 months,th e food you bought just didn't last and you didn't have enough money to get more: Never True Transportation Answer Date Recorded In the past 12 months, has l ack of transportation kept you from medical appts, meetings, work or from getting things needed for daily living? No 04/13/2023 Utilities Answer Date Recorded In the past 12 months, has t he electric, gas, oil or water company threatened to shut off services in your home? No 04/13/2023 Depression Answer Date Recorded Patient Health Questionnaire-2 Score 5 04/21/2023 Comments No Sex and Gender Information Value Date Recorded Sex Assigned at Female 04/28/2022 10:20 AM EDT Legal Sex Female 10:20 AM EDT Gender Identity Female 04/28/2022 10:20 AM EDT Sexual Orientation Straight 04/28/2022 10 :20 AM EDT documented as of this encounter Plan of Treatment Not on file documented as of this encounter Visit Diagnoses Not on filedocumented in this encounter Additional Health Concerns Assessment Noted Time PHQ-9 Depression Total Score: 12 023 9:16 AM EDT documented as of this encounter Care Teams Tool Honing Machine Set Up Operator Relationship Specialty Start Date End Date Maryanne Crockett MD [address] [place] [address] PCP - General Family Medicine 06/29/18 documented as of this encounter
--- OUTSIDE RECORDS SUMMARY | 2024-08-19 15:11 | XMS_ITS | Encounter Summary ---
Author Organization [employer] Address [address] [place] [address] 7 [place] [address] Care Team Providers Care Tool Tender Name Role Phone Maryanne Crockett MD Primary Care Provider Reason for Visit * Reason Onset Date Comments Med Refill 07/08/2024 Encounter Details Date Type Department Care Team ([facility] st Contact Info) Description 07/08/2024 Refill [facility] [address] [place], [place] [phone] Maryanne Crockett MD [address] [place], [place] [phone] Social History Tobacco Use Types Packs/Day Years Used Date Smoking Tobacco: Never Passive Smoke Exposure: Never Smokeless Tobacco: Never Alcohol Use Standard Drinks/Week Comments Never 0 (1 standard drink = 0.6 oz pur e alcohol) Depression Answer Date Recorded Patient Health Questionnaire-9 Score 11 03/29/2024 Patient Health Questionnaire-9 Score 11 03/29/2024 Last PHQ-9: Questionnaire Data Not on file 1 Housing Stability Answer Date Recorded What is your housing situation today? I have carl noriega 03/22/[address] you li ve. Do you have problems with any of the following? None of the above 03/22/2024 Food Insecurity Answer Date Recorded Within the past 12 months, y ou worried that your food would run out before you got money to buy more: Never True 03/22/2024 Within the past 12 months,th e food you bought just didn't last and you didn't have enough money to get more: Never True Transportation Answer Date Recorded In the past 12 months, has l ack of transportation kept you from medical appts, meetings, work or from getting things needed for daily living? No 03/22/2024 Utilities Answer Date Recorded In the past 12 months, has t he electric, gas, oil or water company threatened to shut off services in your home? No 03/22/2024 Depression Answer Date Recorded Patient Health Questionnaire-2 Score 2 03/29/2024 Internet Access Answer Date Recorded Internet Access Q1 Yes 03/22/2024 Internet Access Q2 Not on file 03/22/2024 Comments No Sex and Gender Information Value [...] Assessment Noted Time PHQ-9 Depression Total Score: 11 024 2:25 PM EDT documented as of this encounter Care Teams Tool Tender Relationship Specialty Start Date End Date Maryanne Crockett MD [address] [place] [address] PCP - General Family Medicine 06/29/18 documented as of this encounter
--- OUTSIDE RECORDS SUMMARY | 2024-08-19 15:11 | XMS_ITS | Encounter Summary ---
Author Organization [employer] Address [address] [place] [address] 7 [place] [address] Care Team Providers Care Surfboard Designer Name Role Phone Maryanne Crockett MD Primary Care Provider [phone] Encounter Details Date Type Department Care Team (Late st Contact Info) Description 02/23/2023 Orders Only [facility] MEDICINE [address] [place] [address] Maryanne Crockett MD [address] [place] [address] Upper back pain (Primary Dx); Neck pain Social History Tobacco Use Types Packs/Day Years Used Date Smoking Tobacco: Never Smokeless Tobacco: Never Alcohol Use Standard Drinks/Week Comments Never 0 (1 standard drink = 0.6 oz pur e alcohol) Depression Answer Date Recorded Patient Health Questionnaire-9 Score 7 02/19/2023 Depression Answer Date Recorded Patient Health Questionnaire-2 Score 2 02/19/2023 Comments No Sex and Gender Information Value Date Recorded Sex Assigned at Female 04/28/2022 10:20 AM EDT Legal Sex Female 10:20 AM EDT Gender Identity Female 04/28/2022 10:20 AM EDT Sexual Orientation Straight 04/28/2022 10 :20 AM EDT documented as of this encounter Plan of Treatment Not on file documented as of this encounter Visit Diagnoses Diagnosis Upper back pain- Primary Unspecified backache Neck pain Cervicalgia documented in this encounter Additional Health Concerns Assessment Noted Time PHQ-9 Depression Total Score: 7 02/20/20 23 10:53 AM EDT documented as of this encounter Care Teams Surfboard Designer Relationship Specialty Start Date End Date Maryanne Crockett MD [address] [place] [address] PCP - General Family Medicine 06/29/18 documented as of this encounter
--- OUTSIDE RECORDS SUMMARY | 2024-08-19 15:11 | XMS_ITS | Encounter Summary ---
Author Organization [employer] Address [address] [place] [address] 7 [place] [address] Care Team Providers Care Corrosion Technician Name Role Phone Maryanne Crockett MD Primary Care Provider [phone] Reason for Visit * Reason Onset Date Comments Letter for School/Work 04/24/2023 Encounter Details Date Type Department Care Team ([facility] st Contact Info) Description 04/24/2023 Telephone [facility] MEDICINE [address] [place], [place] [phone] Maryanne Crockett MD [address] [place], [place] [phone] Letter for School/Work Social History Tobacco Use Types Packs/Day Years [...] AM EDT documented as of this encounter Miscellaneous Notes * Telephone Encounter - James Vallejo - 04/24/2023 1:39 PM EDT Tc from patient requesting statues of [facility] paperwork states place of employment faxed documents over any questions please call [phone] documented in this encounter Plan of Treatment Not on file documented as of this encounter Visit Diagnoses Not on filedocumented in this encounter Additional Health Concerns Assessment Noted Time PHQ-9 Depression Total Score: 12 023 9:16 AM EDT documented as of this encounter Care Teams Corrosion Technician Relationship Specialty Start Date End Date Maryanne Crockett MD [address] [place] [address] PCP - General Family Medicine 06/29/18 documented as of this encounter
--- OUTSIDE RECORDS SUMMARY | 2024-08-19 15:11 | XMS_ITS | Encounter Summary ---
Author Organization [employer] Address [address] [place] [address] 7t [place] [address] Care Team Providers Care Sheep Farmer Name Role Phone Maryanne Crockett MD Primary Care Provider [phone] Encounter Details Date Type Department Care Team (Late st Contact Info) Description 02/24/2023 Orders Only [facility] MEDICINE [address] [place], [place] [phone] Maryanne Crockett MD [address] [place], [place] [phone] Positive YORDAN (antinuclear antibody) (Primary Dx); Arthralgia, unspecified joint; Myalgia Social History Tobacco Use Types Packs/Day Years [...] as of this encounter Visit Diagnoses Diagnosis Positive YORDAN (antinuclear antibody)- Primary Other and unspecified nonspecific immunological findings Arthralgia, unspecified joint Myalgia Unspecified myalgia and myositis documented in this encounter Additional Health Concerns Assessment Noted Time PHQ-9 Depression Total Score: 7 02/20/20 23 10:53 AM EDT documented as of this encounter Care Teams Sheep Farmer Relationship Specialty Start Date End Date Maryanne Crockett MD [address] [place] [address] PCP - General Family Medicine 06/29/18 documented as of this encounter
--- OUTSIDE RECORDS SUMMARY | 2024-08-19 15:11 | XMS_ITS | Encounter Summary ---
Author Organization [employer] Address [address] [place] [address] 7 [place] [address] Care Team Providers Care Shop Welder Name Role Phone Maryanne Crockett MD Primary Care Provider [phone] Reason for Visit * Reason Onset Date Comments chart prep 08/04/2024 Encounter Details Date Type Department Care Team ([facility] st Contact Info) Description 08/04/2024 Telephone [facility] MEDICINE [address] [place] [address] Earnestine Santiago MA chart prep Social History Tobacco Use Types Packs/Day Years [...] encounter Miscellaneous Notes * Telephone Encounter - Earnestine Santiago MA - 08/04/2024 10:02 AM EST .Chart Prep Labs: not applicable Images: not applicable Vaccines due: Covid Due and Flu Due Referrals: Urology Pending appointment on 08/19/24 Screenings: Not Applicable Overdue care gaps: Sbirt documented in this encounter Plan of Treatment Not on file documented as of this encounter Visit Diagnoses Not on filedocumented in this encounter Additional Health Concerns Assessment Noted Time PHQ-9 Depression Total Score: 11 024 2:25 PM EDT documented as of this encounter Care Teams Shop Welder Relationship Specialty Start Date End Date Maryanne Crockett MD [address] [place] [address] PCP - General Family Medicine 06/29/18 documented as of this encounter
--- OUTSIDE RECORDS SUMMARY | 2024-08-19 15:11 | XMS_ITS | Encounter Summary ---
Author Organization [employer] Address [address] [place] [address] Care Team Providers Care Inventory Technician Name Role Phone Maryanne Crockett MD Primary Care Provider [phone] Encounter Details Date Type Department Care Team (Late st Contact Info) Description 02/04/2023 Orders Only [facility] MEDICINE [address] [place], [place] [phone] [place] [address] Social History Tobacco Use Types Packs/Day Years Used Date Smoking Tobacco: Never Smokeless Tobacco: Never Alcohol Use Standard Drinks/Week Comments Never 0 (1 standard drink = 0.6 oz pur e alcohol) Comments No Sex and Gender Information Value Date Recorded Sex Assigned at Female 04/28/2022 10:20 AM EDT Legal Sex Female 10:20 AM EDT Gender Identity Female 04/28/2022 10:20 AM EDT Sexual Orientation Straight 04/28/2022 10 :20 AM EDT documented as of this encounter Plan of Treatment Not on file documented as of this encounter Procedures Procedure Name Priority Date/Time Associated Diagnosis Comments COLPOSCOPY Routine 03/18/2022 12:00 AM EDT documented in this encounter Results * Colposcopy (03/18/2022 12:00 AM EDT) us Luis Booker MD IN CLINIC/BEDSIDE ORDERABLES Fin al Result [facility] [address] [place] [address] [phone] documented in this encounter Visit Diagnoses Not on filedocumented in this encounter Care Teams Inventory Technician Relationship Specialty Start Date End Date Maryanne Crockett MD [address] [place] [address] PCP - General Family Medicine 06/29/18 documented as of this encounter
--- OUTSIDE RECORDS SUMMARY | 2024-08-19 15:11 | XMS_ITS | Encounter Summary ---
Author Organization [employer] Address [address] [place] [address] [address] [place] [address] Care Team Providers Care Ribbon Weaver Name Role Phone Maryanne Crockett MD Primary Care Provider [phone] Reason for Visit * Reason Onset Date Comments Triage 08/14/2022 Encounter Details Date Type Department Care Team ([facility] st Contact Info) Description 08/14/2022 Telephone [facility] MEDICINE [address] [place], [place] [phone] Maryanne Crockett MD [address] [place], [place] [phone] Triage Social History Tobacco Use Types Packs/Day Years Used Date Smoking Tobacco: Never Assessed Depression Answer Date Recorded Patient Health Questionnaire-9 [...] the past 12 months, has t he [employer], gas, oil or water [employer] threatened to shut off services in your home? No 03/22/2024 Depression Answer Date Recorded Patient Health Questionnaire-2 Score 2 03/29/2024 Internet Access Answer Date Recorded Internet Access Q1 Yes 03/22/2024 Internet Access Q2 Not on file 03/22/2024 Comments Unknown Sex and Gender Information Value Date Recorded Sex Assigned at Female 04/28/2022 10:20 AM EDT Legal Sex Female 10:20 AM EDT Gender Identity Female 04/28/2022 10:20 AM EDT Sexual Orientation Straight 04/28/2022 10 :20 AM EDT COVID-19 Exposure Response Date Recorded In the last 10 days, have yo u been in contact with someone who was confirmed or suspected to have Coronavirus/COVID-19? No / Unsure 07/21/2022 10:08 AM EST documented as of this encounter Miscellaneous Notes * Telephone Encounter - Sowmya Garcias RN - 08/14/2022 3:42 PM EST Call to Selene Gray,reports having back pain since April 2022. Pt reports having upper back.Per pt pain does not radiates to arms or cause numbness. Pt states no oTC meds help. Pt has mentioned to PCP at last visit. Per pt completing home exervicees and no improvement. Pt wants Rx for muscle relaxer since OTC meds dont help. Pt advised that PCP out of office until . Offered appt with team provider tomorrow for re-assessment. Pt declines states wants PCP to review message. Will send to team to review with covering since pt seen by PCP On 07/21/22 for this pain. Pt also advised of [facility] tomorrow if decides wants to be seen. Pt agrees. Protocol Used: Back Pain (Adult) Protocol-Based Disposition: See in Office or Video Visit within 2 Weeks Video visit offer not recorded Positive Triage Question: * Back pain is a chronic symptom (recurrent or ongoing AND lasting > 4 weeks) * All higher-acuity triage questions were negative Care Advice Discussed: * Reassurance and Education - Back Pain * Cold or Heat * Activity * Reasons To Call Back - Numbness or weakness occurs, or bowel/bladder problems - You become worse * Telephone Encounter - Moses Castilloa - 08/14/2022 3:13 PM EST Symptom: Neck Pain - Not From Injury Outcome: Schedule an urgent appointment (within 4 hours) or talk to a nurse or provider soon Reason: Getting worse, connect to back pain and has heat flashes. The caller accepted this outcome Please contact at [phone] documented in this encounter Plan of Treatment Not on file documented as of this encounter Visit Diagnoses Not on filedocumented in this encounter Care Teams Ribbon Weaver Relationship Specialty Start Date End Date Maryanne Crockett MD [address] [place] [address] PCP - General Family Medicine 06/29/18 documented as of this encounter
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
--- OUTSIDE RECORDS SUMMARY | 2024-08-19 15:11 | XMS_ITS | Encounter Summary ---
Author Organization [employer] Address [address] [place] [address] 7 [place] [address] Care Team Providers Care Elevated Work Platform Operator Name Role Phone Maryanne Crockett MD Primary Care Provider [phone] Reason for Visit * Reason Onset Date Comments Nurse Triage 06/18/2023 Encounter Details Date Type Department Care Team ([facility] st Contact Info) Description 06/18/2023 Telephone [facility] MEDICINE [address] [place], [place] [phone] Maryanne Crockett MD [address] [place], [place] [phone] Nurse Triage Social History Tobacco Use Types Packs/Day [...] encounter Miscellaneous Notes * Telephone Encounter - Kerline Delaney RN - 06/24/2023 9:23 AM EST Images from the original note were not included. Call to Pt to follow up message below. Pt didn't answer left voice message . MD Kerline Cisse RN Caller: Unspecified (6 days ago, 10:15 AM) Topical treatment is not shown to be beneficial. I will send acyclovir ointment just in case. 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 Several new blisters one on outside , one on inner aspect and one on buttock. Pt reports itchiness has now turned to painful, blisters remain intact at this time. Pt does have valtrex as prescribed and is taking that as prescribed. Pt is inquiring about possible cream or ointment that could be applied. Advised will send this request to PCP and nursing team. Pt agrees with disposition and plan. Pt is advised may not get a call back till tomorrow morning Pt verbalizes understanding. Protocol Used: Rectal Symptoms (Adult) Protocol-Based Disposition: Home Care Positive Triage Questions: * Mild rectal pain * Mild rectal itching * All higher-acuity triage questions were negative Care Advice Discussed: * Reasons To Call Back - Severe rectal pain - Rectal pain not improved after 3 days - Rectal bleeding is more than minor (e.g., more than just blood on toilet paper or few drops) - Rectal bleeding is minor but is ongoing (e.g., occurs over 2 times) - You become worse * Telephone Encounter - James Vallejo - 06/18/2023 10:15 AM EST Patient calling to report Herpes around rectum states very itchy and painful for the past 2 Days Patient speaks [place]. Advised triage nurse will call patient back. documented in this encounter Plan of Treatment Not on file documented as of this encounter Visit Diagnoses Not on filedocumented in this encounter Additional Health Concerns Assessment Noted Time PHQ-9 Depression Total Score: 12 023 9:16 AM EDT documented as of this encounter Care Teams Elevated Work Platform Operator Relationship Specialty Start Date End Date Maryanne Crockett MD [address] [place] [id number] PCP - General Family Medicine 06/29/18 documented as of this encounter
--- OUTSIDE RECORDS SUMMARY | 2024-08-19 15:12 | XMS_ITS | Clinical Summary ---
Author Organization [employer] Address [address] [place] [address] [address] [place] [address] Care Team Providers Care Scientific Artist Name Role Phone Maryanne Crockett MD Primary Care Provider [phone] Allergies Active Allergy Reactions Criticality Noted Date Comments Amoxicillin Hives 06/11/2012 Other reaction(s): Hives / Skin Rash Medications * This document contains information received from the source organization and may not represent a complete record from that organization. naproxen (Naprosyn) 500 MG tablet Take 1 tablet (500 mg) by mouth if needed in the morning and at bedtime for mild pain. 40 tablet 2 11/05/19 24 025 Active lidocaine (Lidoderm) 5 % patch Apply 1 patch topically Once per day. Remove & discard patch within 12 hours or as directed by MD. 30 patch 2 11/05/19 24 Active valACYclovir (Valtrex) 500 MG tablet Take 1 tablet (500 mg) by mouth 2 times daily. 60 tablet 3 03/29/20 24 Active escitalopram (Lexapro) 10 MG tablet TAKE 1 TABLET BY MOUTH EVERY MORNING 30 tablet 11 07/08/19 25 Active docusate sodium (Colace) 100 MG capsule Take 1 capsule (100 mg) by mouth if needed in the morning and at bedtime for constipation. 60 capsule 3 03/29/20 24 025 Discontinued(M ed list cleanup (will not trigger notification to Pharmacy)) polyethylene glycol, PEG, 3350 (MiraLax) 17 GM/SCOOP powder Take 17g by mouth every 3 days as needed for constipation Do not start before March 31, 2024. 527 g 2 03/31/20 24 02/16/2 025 Discontinued(M ed list cleanup (will not trigger notification to Pharmacy)) oseltamivir (Tamiflu) 75 MG capsule Take 1 capsule (75 mg) by mouth 2 times daily for 5 days. 10 capsule 08/08/19 25 025 Active Problems Problem Noted Date Diagnosed Date Mixed stress and urge urinary incontinence 06/08 Assessment & Plan (08/08/2024 7:28 PM EST): Negative POCT UA Plan Take meds as prescribed Urine culture US bladder Referral to urology Follow up with PCP in 4 weeks Assessment & Plan (06/09/2024 12:02 AM EST): Negative POCT UA Plan Take meds as prescribed Urine culture US bladder Referral to urology Follow up with PCP in 4 weeks Acute low back pain without sciatica 06/08/2024 Assessment & Plan (06/08/2024 11:53 PM EST): Back pain Plan Acetaminophen 500 mg Ibuprofen 800 mg Constipation 04/06/2024 Assessment & Plan (04/06/2024 5:55 AM EDT): - continue fiber-rich diet, drink plenty amount of water, and have adequate physical activity - use Miralax and colace with caution Positive YORDAN (antinuclear antibody) 01/27/2024 Assessment & Plan (08/14/2024 12:33 PM EST): - 02/19/23 YORDAN titer 1:320 - seen by cardroom attendant [facility], and suggested that it was false positive and patient does not have autoimmune disease. - second opinion by Dr. Alexander, [facility] on 04/25/24. Lab was ordered. YORDAN 1:320 again, but no follow up was recommended. Patient was recommended to consider trying medication for fibromyalgia - Patient is hesitant to try a medication Assessment & Plan (04/06/2024 5:57 AM EDT): - 02/19/23 YORDAN titer 1:320 - seen by cardroom attendant, and suggested that it was false positive and patient does not have autoimmune disease. - upcoming appointment for second opinion Assessment & Plan (01/27/2024 2:32 PM EDT): - 02/19/23 YORDAN titer 1:320 Positive double stranded DNA antibody test 01/26 Assessment & Plan (04/06/2024 5:56 AM EDT): - 01/16/24 positive anti-ds DNA antibody; other antibodies were negative and normal ESR and CRP Assessment & Plan (01/27/2024 2:33 PM EDT): - 01/16/24 positive anti-ds DNA antibody; other antibodies were negative and normal ESR and CRP Serum complement decreased 01/27/2024 Assessment & Plan (04/06/2024 5:57 AM EDT): - 01/16/24 Complement C3 65 mg/dL (low) Assessment & Plan (01/27/2024 2:34 PM EDT): - 01/16/24 Complement C3 65 mg/dL (low) Breast pain, left 01/01/2024 Assessment & Plan (01/01/2024 6:10 PM EDT): Describes superficial pain in left breast w normal exam ,no lumps , no skin rashes to be concern for shingles at this time -tylenol prn -NSAIDS prn -warm compressions -advised to monitor skin and if notice any rash or vesicles to come to ED or WIC to eval and tx for shingles not obvious at this time -alarm signs and symptoms discussed -advised to call clinic , if symptoms persist in next week to refer for left breast US -holding for now w no abnormalities palpated on exam Chronic neck pain 11/05/2023 Assessment & Plan (04/06/2024 5:53 AM EDT): - she has tried physical therapy - upcoming appointment with cardroom attendant Assessment & Plan (01/27/2024 2:29 PM EDT): - she has tried physical therapy Assessment & Plan (11/05/2023 2:05 PM EDT): With significant mm spasm with nml neuro exam, except decreased LTS lateral RUE, likely musculoskeletal -referred for C-spine XR -referred for EMG -tx with medrol taper -change flexeril to baclofen to help with mm spasm -trial naprosyn BID x 1 week, then prn -trial diclofenac gel and lidocaine patches prn -encouraged heat therapy -encouraged stretching exercises -referred to PT -advised contact [facility] if sx change or worsen Class 1 obesity 10/15/2023 Assessment & Plan (08/14/2024 12:31 PM EST): Dietary Recommendations: Fruits, vegetables, whole grains, protein foods, and fat-free or low-fat dairy products are healthy choices. Eat different types of protein foods in your diet. This can include seafood, lean meats, poultry, beans, peas, lentils, nuts, seeds, soy products, and eggs. Limit foods and beverages higher in added sugars, saturated fat, and sodium. Exercise Recommendations: At least 150 minutes of moderate-intensity physical activity per week, or an equivalent combination of moderate- and vigorous-intensity activity Anxiety 04/20/2023 Assessment & Plan (04/06/2024 6:01 AM EDT): - GAD7 score 18 in Mar 2023, work-related stress - GAD7 score 7 on 03/29/24 - seen by integrated behavioral health service clinician in Mar 2023 - FMLA in Mar 2023 Assessment & Plan (01/27/2024 2:40 PM EDT): - GAD7 score 18 in Mar 2023, work-related stress - seen by integrated behavioral health service clinician - FMLA in Mar 2023 Assessment & Plan (05/20/2023 12:31 PM EST): Patient with symptoms of severe depression, anxiety and work-related stress. History of SI attempt in 2020. Denies current SI or self-harm. Reason for visit was to assess symptoms and provide support. Provided psychoeducation around depression and coping mechanisms to regulate emotions. Selene reported she called the [facility] program as recommended during our first session. She has upcoming appointment with [facility] for OP individual therapy on 05/28. She will be returning to work on 07/29/23. At this time Selene Gray meets criteria for Visit Diagnoses: Problem List Items Addressed This Visit Other Moderate episode of recurrent major depressive disorder (CMS/HCC) Anxiety Work-related stress Patient ready to address current needs Yes Strengths include awareness of modification of negative behaviors and readiness to change PLAN: 1. Follow up with [facility]: Not recommended for follow-up 2. Patient goal is to be engaged with individual therapy and be able to manage life stressors. 3. Behavioral Recommendations a. Engaged in OP sessions b. Follow PCP recommendations regarding meds (see PCP note) c. Utilize coping mechanisms to decrease symptoms Assessment & Plan (04/21/2023 9:58 AM EDT): Patient with symptoms of severe depression, anxiety and work-related stress. History of SI attempt in 2020. Denies current SI or self-harm. Reason for visit was to assess symptoms, provide support and offer referral. Plan is to refer patient for OP individual therapy and provide follow-up BE in a month. Provided psychoeducation around depression and ways to cope with emotions. Shared information for the [facility] program with [facility] for walk-in appointments and urgent care if needed. At this time Selene Gray meets criteria for Visit Diagnoses: Problem List Items Addressed This Visit Other Moderate episode of recurrent major depressive disorder (CMS/HCC) Anxiety Work-related stress Patient ready to address current needs Yes Strengths include readiness and motivation to change PLAN: 1. Follow up with [facility]: Recommended for follow-up: Scheduled BE in a month 2. Patient goal is to start individual therapy and feel less depressed 3. Behavioral Recommendations a. Referral for OP individual therapy b. Contact [facility] program if needed for walk-in appointments or urgent care c. Incorporate self-care and mindfulness techniques into daily routine Work-related stress 04/20/2023 Assessment & Plan (05/20/2023 12:32 PM EST): Patient with symptoms of severe depression, anxiety and work-related stress. History of SI attempt in 2020. Denies current SI or self-harm. Reason for visit was to assess symptoms and provide support. Provided psychoeducation around depression and coping mechanisms to regulate emotions. Selene reported she called the [facility] program as recommended during our first session. She has upcoming appointment with [facility] for OP individual therapy on 05/28. She will be returning to work on 07/29/23. At this time Selene Gray meets criteria for Visit Diagnoses: Problem List Items Addressed This Visit Other Moderate episode of recurrent major depressive disorder (CMS/HCC) Anxiety Work-related stress Patient ready to address current needs Yes Strengths include awareness of modification of negative behaviors and readiness to change PLAN: 1. Follow up with [facility]: Not recommended for follow-up 2. Patient goal is to be engaged with individual therapy and be able to manage life stressors. 3. Behavioral Recommendations a. Engaged in OP sessions b. Follow PCP recommendations regarding meds (see PCP note) c. Utilize coping mechanisms to decrease symptoms Assessment & Plan (04/21/2023 9:58 AM EDT): Patient with symptoms of severe depression, anxiety and work-related stress. History of SI attempt in 2020. Denies current SI or self-harm. Reason for visit was to assess symptoms, provide support and offer referral. Plan is to refer patient for OP individual therapy and provide follow-up BE in a month. Provided psychoeducation around depression and ways to cope with emotions. Shared information for the [facility] program with [facility] for walk-in appointments and urgent care if needed. At this time Selene Gray meets criteria for Visit Diagnoses: Problem List Items Addressed This Visit Other Moderate episode of recurrent major depressive disorder (CMS/HCC) Anxiety Work-related stress Patient ready to address current needs Yes Strengths include readiness and motivation to change PLAN: 1. Follow up with [facility]: Recommended for follow-up: Scheduled BE in a month 2. Patient goal is to start individual therapy and feel less depressed 3. Behavioral Recommendations a. Referral for OP individual therapy b. Contact [facility] program if needed for walk-in appointments or urgent care c. Incorporate self-care and mindfulness techniques into daily routine History of herpes simplex infection 02/19/2023 Assessment & Plan (04/06/2024 5:58 AM EDT): - continue valacyclovir suppression 500 mg once daily; take bid for outbreak Assessment & Plan (02/19/2023 1:17 PM EDT): - continue valacyclovir suppression 500 mg once daily; take bid for outbreak Total body pain 02/19/2023 Assessment & Plan (04/06/2024 5:53 AM EDT): - evaluated for rheumatological disorder: YORDAN titer 1:320 in Jan 2023; positive anti-ds DNA antibody and decreased complement - evaluated by [facility] rheumatology in Jan 2023 - referred to another , upcoming appointment with Dr. Alexander - possible fibromyalgia - continue staying physically active / exercising for both mental and physical health Assessment & Plan (01/27/2024 2:32 PM EDT): - evaluated for rheumatological disorder: YORDAN titer 1:320 in Jan 2023; positive anti-ds DNA antibody and decreased complement - evaluated by [facility] rheumatology in Jan 2023 - refer to another rheumatology - possible fibromyalgia - continue staying physically active / exercising for both mental and physical health Assessment & Plan (02/19/2023 1:21 PM EDT): - evaluate for rheumatological disorder - possible fibromyalgia - consider referring to cardroom attendant - continue cyclobenzaprine and APAP prn - continue exercising - follow up in 6 mo Moderate episode of recurrent major depressive d isorder 07/21/2022 Assessment & Plan (08/08/2024 7:28 PM EST): - PHQ9 score 12 in Mar 2023 - seen by [facility] - she did not request antidepressant or continue with outpatient service Assessment & Plan (04/06/2024 5:58 AM EDT): - PHQ9 score 12 in Mar 2023 - seen by [facility] - she did not request antidepressant or continue with outpatient service Assessment & Plan (01/27/2024 2:41 PM EDT): - PHQ9 score 12 in Mar 2023 - seen by [facility] - she did not request antidepressant Assessment & Plan (05/20/2023 12:31 PM EST): Patient with symptoms of severe depression, anxiety and work-related stress. History of SI attempt in 2020. Denies current SI or self-harm. Reason for visit was to assess symptoms and provide support. Provided psychoeducation around depression and coping mechanisms to regulate emotions. Selene reported she called the [facility] program as recommended during our first session. She has upcoming appointment with [facility] for OP individual therapy on 05/28. She will be returning to work on 07/29/23. At this time Selene Gray meets criteria for Visit Diagnoses: Problem List Items Addressed This Visit Other Moderate episode of recurrent major depressive disorder (CMS/HCC) Anxiety Work-related stress Patient ready to address current needs Yes Strengths include awareness of modification of negative behaviors and readiness to change PLAN: 1. Follow up with [facility]: Not recommended for follow-up 2. Patient goal is to be engaged with individual therapy and be able to manage life stressors. 3. Behavioral Recommendations a. Engaged in OP sessions b. Follow PCP recommendations regarding meds (see PCP note) c. Utilize coping mechanisms to decrease symptoms Assessment & Plan (04/21/2023 9:58 AM EDT): Patient with symptoms of severe depression, anxiety and work-related stress. History of SI attempt in 2020. Denies current SI or self-harm. Reason for visit was to assess symptoms, provide support and offer referral. Plan is to refer patient for OP individual therapy and provide follow-up BE in a month. Provided psychoeducation around depression and ways to cope with emotions. Shared information for the [facility] program with [facility] for walk-in appointments and urgent care if needed. At this time Selene Gray meets criteria for Visit Diagnoses: Problem List Items Addressed This Visit Other Moderate episode of recurrent major depressive disorder (CMS/HCC) Anxiety Work-related stress Patient ready to address current needs Yes Strengths include readiness and motivation to change PLAN: 1. Follow up with [facility]: Recommended for follow-up: Scheduled BE in a month 2. Patient goal is to start individual therapy and feel less depressed 3. Behavioral Recommendations a. Referral for OP individual therapy b. Contact [facility] program if needed for walk-in appointments or urgent care c. Incorporate self-care and mindfulness techniques into daily routine Assessment & Plan (02/19/2023 1:19 PM EDT): - hx of suicidal attempt in October 2020 by OD on Psych medication. -Increase escitalopram 10 mg daily -Seen by N clinician 04/15/21. -Continue journaling, which helped in the past. - Anticipating a stressful situation at home and pt seems to be having a healthy coping skill Assessment & Plan (07/21/2022 9:58 PM EST): hx of suicidal attempt in October 2020 by OD on Psych medication. -Pt stopped taking Lexapro but restarted recently. -Continue Esticitalopram 5mg daily -Seen by N clinician 04/15/21. -Continue journaling, which helped in the past. -Mood seems to be affected by her current health condition, mainly upper back pain Headache 07/21/2022 Assessment & Plan (04/06/2024 5:53 AM EDT): - Pt was following with [facility] neurology, last visit in September 2022, safely discharged - prescribed Magnesium Oxide by neurologist. - MRI on 03/21/20 showed, no mass, infarct hemorrhage or abnormality. Incidental R arachnoid cyst in CPA. Neurologist states DAVILA is unrelated to arachnoid cyst. - continue current symptomatic treatment. - optimize Tx for allergic rhinitis and anxiety and stress reduction Assessment & Plan (01/27/2024 2:29 PM EDT): - Pt is following with [facility] neurology, last visit in September 2022, safely discharged - prescribed Magnesium Oxide by neurologist. - MRI on 03/21/20 showed, no mass, infarct hemorrhage or abnormality. Incidental R arachnoid cyst in CPA. Neurologist states DAVILA is unrelated to arachnoid cyst. - continue current symptomatic treatment. - optimize Tx for allergic rhinitis and anxiety and stress reduction Assessment & Plan (02/19/2023 1:05 PM EDT): - Pt is following with [facility] neurology, last visit in September 2022, safely discharged - prescribed Magnesium Oxide by neurologist. - MRI on 03/21/20 showed, no mass, infarct hemorrhage or abnormality. Incidental R arachnoid cyst in CPA. Neurologist states DAVILA is unrelated to arachnoid cyst. - continue current symptomatic treatment. - optimize Tx for allergic rhinitis and anxiety and stress reduction Assessment & Plan (07/21/2022 10:04 PM EST): - Pt is following with [facility] neurology, last seen on 04/01/22; - Currently pt is prescribed Magnesium Oxide by neurologist. Questionable adherence because pt perceives that it is ineffective - MRI on 03/21/20 showed, no mass, infarct hemorrhage or abnormality. Incidental R arachnoid cyst in CPA. Arachnoid cyst 07/21/2022 Assessment & Plan (04/06/2024 5:54 AM EDT): - incidental finding on MRI on 03/28/20 - evaluated by neurology; discussed about benign nature Assessment & Plan (01/27/2024 2:28 PM EDT): - incidental finding on MRI on 03/28/20 - evaluated by neurology; discussed about benign nature Assessment & Plan (02/19/2023 1:06 PM EDT): - incidental finding on MRI on 03/28/20 - evaluated by neurology; discussed about benign nature Assessment & Plan (07/21/2022 10:05 PM EST): - incidental finding on MRI on 03/28/20 - followed by neurology Mass of breast 04/16/2015 Eating disorder 04/11/2014 Assessment & Plan (04/06/2024 6:00 AM EDT): -Pt missed appt w/ [employer] Supervisor at [facility], and was going to contact another meeting specialist of her choice. - continue working on building healthy relationship with food and eating Assessment & Plan (07/21/2022 10:39 AM EST): Pt missed appt w/ [employer]ity [employer]ing Supervisor at [facility]. -Pt states she has contact for another meeting specialist; she will contact new meeting specialist. Allergic rhinitis 12/28/2013 Assessment & Plan (04/06/2024 6:01 AM EDT): - continue cetirizine and fluticasone nasal prn Assessment & Plan (02/19/2023 1:16 PM EDT): - continue cetirizine and fluticasone nasal prn Scoliosis 12/28/2013 Resolved Problems Problem Noted Date Diagnosed Date Resolved Date Throat pain 11/05/2023 01/27/2024 Assessment & Plan (11/05/2023 2:06 PM EDT): No significant findings on exam, ?referred from posterior neck -check basic labs -encouraged zyrtec and flonase daily -consider eval with ENT if no improvement Acute hemorrhagic cystitis 10/15/2023 0 11/05/2023 Chest pain in adult 02/26/2023 01/27/20 Assessment & Plan (02/26/2023 3:36 PM EDT): Pt is here for a sick visit with c/o intermittent chest pain since 02/23/2023 associated at times with sob and palpitations Right now chest pain free On exam there is no tenderness on her chest or abdomen, lungs are CTA B. Vital signs are normal Etiology ? Musculoskeletal ? SVT ? Panic attack ? Plan: EKG today : NSR No acute st t changes Will order a Chest x-ray, TSH and D-dimer as well as a Holter monitor Pt educated and counseled about chest pain and the need to present to the nearest ER if chest pain does not improve or worsen or if is associated with symptoms such as sob, difficulty breathing, nausea, vomiting, diaphoresis etc. Follow up with PCP in 1 week after testing Chronic pelvic pain in female 04/16/2015 02/19/2023 Adjustment disorder 04/16/2015 01/27/20 24 Overweight 12/28/2013 11/05/2023 Assessment & Plan (02/19/2023 1:07 PM EDT): - continue working on lifestyle modifications - she started exercising and is noticing its beneficial effect on both mental and physical health Assessment & Plan (07/21/2022 10:06 PM EST): - continue working on lifestyle modifications Encounters Date Type Department Care Team Description 08/08/2024 3:45 PM EST Office Visit [address] [address] Maryanne Crockett MD Mixed stress and urge urinary incontinence (Primary Dx); Moderate episode of recurrent major depressive disorder (CMS/HCC); Positive YORDAN (antinuclear antibody); Acute cough; Influenza A; Dietary counseling; Exercise counseling; Class 1 obesity due to excess calories without serious comorbidity with body mass index (BMI) of 30.0 to 30.9 in adult; Class 1 obesity 08/04/[address] [address] Earnestine Santiago MA chart prep 07/08/[address] [address] Maryanne Crockett MD 07/08/[address] [address] Maryanne Crockett MD 07/07/[address] [address] Maryanne Crockett MD Urgent Care-Status Check 07/06/[address] [address] Maryanne Crockett MD Nurse Triage 06/09/[address] [address] [place] access service representative Orders 06/08/2024 2:45 PM EST Office Visit [address] [address] Yazmin Valdes FNP Mixed stress and urge urinary incontinence (Primary Dx); Acute low back pain without sciatica, unspecified back pain laterality 06/08/2024 Orders Only [address] [address] Yazmin Valdes FNP 06/08/[address] [address] Maryanne Crockett MD Nurse Triage from Last 3 Months Immunizations Name Administration Dates Next Due HPV, Quadrivalent 09/13/2010,05/22/2010,02/01/20 10 Hep B, adult 06/16/2018,01/22/2015,12/20/2014 Influenza injectable quadriv alent IIV4 with preservative 03/23/2017,03/18/2016,04/16/2015 Influenza injectable quadriv alent preservative free 04/02/2022,05/06/2021,08/05/2019,2017 Influenza, IIV3, injectable 04/11/2014, 2,05/22/2010 Influenza, Split (incl. papito fied surface antigen) 10/11/2013 MMR 06/13/2021,05/16/2021 Pfizer Covid-19 Vaccine 12+ Bivalent 07/21/2022 Tdap 02/19/2023,01/12/2013 Family History Medical History Relation Name Comments Diabetes type II Father Hypertension Father Colon cancer Paternal Grandfather Relation Name Status Comments Father Paternal Grandfather Social History Tobacco Use Types Packs/Day Years Used Date Smoking Tobacco: Never Passive Smoke Exposure: Never Smokeless Tobacco: Never Tobacco Cessation:Counseling Given: Not Answered Alcohol Use Standard Drinks/Week Comments Never 0 (1 standard drink = 0.6 oz pur e alcohol) Depression Answer Date Recorded Patient Health Questionnaire-9 Score 5 08/11/2024 Patient Health Questionnaire-9 Score 5 08/11/2024 Last PHQ-9: Questionnaire Data Not on file 0 08/11/2024 Housing Stability Answer Date Recorded What is your housing situation today? I have carlálvaro noriega 03/22/[address] you [...] Orientation Straight 04/28/2022 10 :20 AM EDT Last Filed Vital Signs Vital Sign Reading Time Taken Comments Blood Pressure 100/70 08/08/2024 3:55 PM EST Pulse 84 08/08/2024 3:55 PM EST Temperature 36.9 ??C (98.5 ??F) 06/08/2024 3:01 PM ES T Respiratory Rate 16 08/08/2024 3:55 PM EST Oxygen Saturation 99% 06/08/2024 3:01 PM EST Inhaled Oxygen Concentration - - Weight 85.8 kg (189 lb 3.2 oz) 08/08/2024 3:55 P M EST Height 166.5 cm (5' 5.54 ) 08/08/2024 3:55 PM ES T Body Mass Index 30.97 08/08/2024 3:55 PM EST Plan of Treatment Health Maintenance Due Date Last Done Comments Family Planning (PISQ) 2008 Pneumococcal Vaccine: Pediatrics (0 to 5 Years) and At-Risk Patients (6 to 49) Years) (1 of 2 - PCV) 2012 Zoster Vaccines (1 of 2) 2012 COVID-19 Vaccine ( - 2023- season) 2024 07/21/2022, 05/31/2021, 05/02/2021 SDOH Screening 03/29/2025 03/29/2024 Alcohol/Substance Use Screening 08/08/2025 08/08/2024 Depression Screening 08/11/2025 08/11/2024, 08/11/19 Tobacco Screening 08/14/2025 08/14/2024 Cervical Cancer Screening 02/02/2026 HPV/Cotest 02/02/2026 02/02/2023, 01/21/2022 Pap Smear 02/02/2026 02/02/2023, 01/21/2022 Lipid Panel 01/15/2029 01/16/2024 DTaP/Tdap/Td Vaccines (3 - Td or Tdap) 02/19/2033 02/19/2023, 01/12/2013 RSV Patients and Patients Aged 60 years or older (1 - 1-dose 75+ series) 2068 HPV Vaccines Completed 09/13/2010, 04/30, 01/31/2010 Hepatitis B Vaccines Completed 06/16/2018, 01/22/2015, 12/20/2014 HIV Screening Completed 02/19/2023, 12/2020, 11/27/2020, Additional history exists Hepatitis C Screening Completed 02/19/2023, 020 Influenza Vaccine Completed 07/08/2024, , 05/06/2021, Additional history exists HIB Vaccines Aged Out No longer eligi ble based on patient's age to complete this topic Hepatitis A Vaccines Aged Out No long er eligible based on patient's age to complete this topic IPV Vaccines Aged Out No longer eligi ble based on patient's age to complete this topic Meningococcal Vaccine Aged Out No amandeep sofia eligible based on patient's age to complete this topic RSV under 20 months Aged Out No longe r eligible based on patient's age to complete this topic Rotavirus Vaccines Aged Out No longer eligible based on patient's age to complete this topic Procedures Procedure Name Priority Date/Time Associated Diagnosis Comments POCT INFLUENZA B Routine 08/08/2024 4:42 PM EST Acute cough POCT INFLUENZA A Routine 08/08/2024 4:41 PM EST Acute cough POCT RAPID COVID ANTIGEN Routine 08/08/2024 4:40 PM EST Acute cough US BLADDER Routine 06/14/2024 3:41 PM EST Mixed stress and urge urinary incontinence POCT URINALYSIS DIPSTICK Routine 06/08/2024 3:39 PM EST Mixed stress and urge urinary incontinence CANCELLED URINE Routine 06/08/2024 12:22 PM EST CULTURE, URINE, ROUTINE Routine 06/08/2024 12:00 AM EST Mixed stress and urge urinary incontinence LIPID PANEL, STANDARD Routine 01/16/2024 10:32 AM EDT Chronic neck pain Throat pain HEPATITIS C ANTIBODY REFLEX Routine 02/19/2023 11:51 AM EDT HIV ANTIBODY/ANTIGEN ([facility]) Routine 02/19/2023 11:51 AM EDT HPV MRNA E6/E7 REFLEX TO HPV 16, 18/45 Routine 02/02/2023 11:17 AM EDT Upper back pain PAP SMEAR Routine 02/02/2023 11:17 AM EDT Upper back pain from Last 3 Months or Most Recently Relevant to Health Maintenance Results * POCT Influenza B manually resulted (08/08/2024 4:42 PM EST) Rapid Influenza B Ag Negative Negative, Indeterminate QC Media Lot # [id number] Lot# Expiration Date Swab 08/08/2024 4:42 PM EST Maryanne Crockett MD POINT OF CARE TEST ENTER/EDIT OR DERABLES Final Result * (ABNORMAL) POCT Influenza A manually resulted (08/08/2024 4:41 PM EST) Rapid Influenza A Ag Positive( A) Negative, Indeterminate QC Media Lot # [id number] Lot# Expiration Date Swab Nasopharyngeal structure / Unknown 08/08/2024 4:41 PM EST us Maryanne Crockett MD POINT OF CARE TEST ENTER/EDIT OR DERABLES Final Result * POCT Rapid COVID Ag (08/08/2024 4:40 PM EST) Rapid COVID Ag Negative QC Media Lot # [id number] Lot# Expiration Date [id number] Swab 08/08/2024 4:40 PM EST us Maryanne Crockett MD POINT OF CARE TEST ENTER/EDIT OR DERABLES Final Result * US BLADDER (06/14/2024 3:41 PM EST) Anatomical Region Laterality Modality Abdomen Ultrasound 06/14/2024 3:41 PM EST Narrative 06/26/2024 9:02 AM EST ? [facility] ?[address] ?[place] [address] ? Ultrasound Report ? Signed ? Patient: Selene Gray I ?MR#: [id number] ?? [id number] ? : 1995 ?Acct:[id number] ? Age/Sex: 29 / F ?ADM Date: 06/14/24 ? Loc: HO.US ? Attending Dr: Valeria Mcdaniels MD ? Ordering Physician: Valeria Mcfarlane MD ?? Date of Service: 06/14/24 ?? Procedure(s): US bladder ?? Accession Number(s): [id number] ? cc: Valeria Mcfarlane MD ? EXAMINATION: ?? US PELVIS LIMITED (BLADDER) ? CLINICAL INFORMATION: ?? History of bladder sling 2019, worsening urinary leaking, back pain. ? COMPARISON: ?? Ultrasound abdomen 03/12/2023 ? TECHNIQUE: ?? Real-time imaging of the bladder. ? FINDINGS: ? BLADDER: Well-distended. Bilateral ureteral jets are demonstrated. ?? Prevoid bladder volume is 343 mL. Postvoid bladder volume is 38 mL. ? US/US bladder ?? IMPRESSION: ?? Post void bladder volume 38 mL. ? Electronically signed by: ??Chrystal Keene MD ??06/26/2024 08:59 AM EST ?? RP ? Dictated By: ?Chrystal Keene MD ? Signed By: ?<Electronically signed by Chrystal Keene MD in OV> ? 06/26/24 0859 ? DD/ 1541 ? TD/TT: 12/17/24 1545 ? Diesel Tractor Operator: ? Procedure Note Donotuseinterpreter, Image - 06/26/[address] [address] Ultrasound Report Signed Patient: Selene Gray IMR#: [id number] : 1995Acct:[id number] Age/Sex: 29 / FADM Date: 06/14/24 Loc: HO.US Attending Dr: Valeria Mcdaniels MD Ordering Physician: Valeria Mcfarlane MD Date of Service: 06/14/24 Procedure(s): US bladder Accession Number(s): [id number] cc: Valeria Mcfarlane MD EXAMINATION: US PELVIS LIMITED (BLADDER) CLINICAL INFORMATION: History of bladder sling 2020, worsening urinary leaking, back pain. COMPARISON: Ultrasound abdomen 03/12/2023 TECHNIQUE: Real-time imaging of the bladder. FINDINGS: BLADDER: Well-distended. Bilateral ureteral jets are demonstrated. Prevoid bladder volume is 343 mL. Postvoid bladder volume is 38 mL. US/US bladder IMPRESSION: Post void bladder volume 38 mL. Electronically signed by: Chrystal Keene MD 06/26/2024 08:59 AM EST Dictated By: Chrystal Keene MD Signed By: <Electronically signed by Chrystal Keene MD in OV> 06/26/24 0859 DD/ 1541 TD/TT: 06/14/24 1545 Diesel Tractor Operator: us Valeria Mcdaniels MD IMG US PROCEDURES Fin al Result * POCT Urinalysis (06/08/2024 3:39 PM EST) Color, UA Yellow Clarity, UA Clear Glucose, UA Negative Bilirubin, UA Negative Ketones, UA Negative Spec Grav, UA 1.030 Blood, UA Negative Negative, None Detected pH, UA 5.5 Protein, UA Negative Urobilinogen, UA 0.2 Leukocytes, UA Negative Negative, Rare, Trace Nitrite, UA Negative Negative, None Detected Appearance, UA clear QC Media Lot # [id number] Lot# Expiration Date [id number] Urine 06/08/2024 3:39 PM EST [facility] POINT OF CARE TEST ENTER/EDIT ORDERABLES Final Result * Cancelled Urine (06/08/2024 12:22 PM EST) Cancelled Urine SEE NOTE [facility] Comment:THE FOLLOWING TESTS WERE CANCELLED: UA CLEAN CATCHREASON: NO SPECIMAN RECIEVED 06/08/2024 12:2 2 PM EST 06/09/2024 12:24 PM EST Yazminpaulino Grayarpit [facility] HISTORICAL/NON ORDERABLE LABS Final Result Performing Organization Address [facility] Co de Phone Number [facility] [address] [place] [phone] * Urine Culture Routine (06/08/2024 12:00 AM EST) Urine Urine specimen obtained by clean catch procedure / Unknown 06/08/2024 06/08/2024 Comment:CC Narrative [facility] - 06/10/2024 11:34 AM EST Urine Culture No growth. Specimen Source: Urine clean catch [facility] MICROBIOLOGY - GENERAL ORD ERABLES Final Result Performing Organization Address City/[facility] Co de Phone Number [facility] [address] [place] [address] [phone] * Lipid Panel, Standard (01/16/2024 10:32 AM EDT) Triglycerides 59 <150 mg/dL [facility] Comment:Desirable Triglyceri de: less than 150 mg/dLBorderline High Triglyceride 150-199 mg/dLHigh Triglyceride: 200-499 mg/dLVery High Triglyceride: greater than or equal to 5OO mg/dL Cholesterol 158 <200 mg/dL [facility] Comment:Desirable Cholestero l: less than 200 mg/dLBorderline High Cholesterol: 200-239 mg/dLHigh Cholesterol: greater than 239 mg/dL LDL Cholesterol Calculated 99 <100 mg/dL [facility] Comment:Desirable LDL: less than 100 mg/dLNear Optimal/Above Optimal LDL: 110- 129 mg/dLBorderline High LDL: 130-159 mg/dLHigh LDL: 160-189 mg/dLVery High LDL: greater than or equal to 190 mg/dL HDL Cholesterol 48 >40 mg/dL [facility] Comment:Desirable HDL: great er than 40 mg/dL Note: This HDL assay may give artificially low results in patients with liver disease. Blood Venous blood specimen / Unknown 01/16/2024 10:32 AM EDT 01/16/2024 10:32 AM EDT us Hortencia Olsen DO LAB BLOOD ORDERABLES Final R esult Performing Organization Address [facility] Co de Phone Number [facility] [address] [place] [phone] * Hepatitis C Antibody Reflex (02/19/2023 11:51 AM EDT) Hepatitis C Antibody Nonreactive Nonreactive [facility] Comment:Antibodies to HCV no t detected; does not exclude early acuteHCV infection. 02/19/2023 11:5 1 AM EDT 02/19/2023 1:41 PM EDT us Maryanne Crockett MD LAB BLOOD ORDERABLES Final Resul t Performing Organization Address [facility] Co de Phone Number [facility] [address] [place] [phone] * HIV Ab/Ag ([facility]) (02/19/2023 11:51 AM EDT) HIV AB/AG Nonreactive Nonreactive [facility] Comment:HIV-1 p24 Ag and/or HIV-1/HIV-2 Ab not detected.A test result that is nonreactive does not exclude thepossibility of exposure to or infection with HIV-1 and/orHIV-2. Nonreactive results in this assay for individualswith prior exposure to HIV-1 and/or HIV-2 may be due toantigen and antibody levels that are below the limit ofdetection of this assay.The [employer] HIV Ag/Ab Combo assay result andsupplemental assay results should be interpreted inconjunction with the patient's clinical presentation,history and other laboratory results. If the results areinconsistent with clinical evidence, additional testing issuggested to confirm the result. 02/19/2023 11:5 1 AM EDT 02/19/2023 1:41 PM EDT us Maryanne Crockett MD LAB BLOOD ORDERABLES Final Resul t [facility] [address] [place] [phone] * HPV mRNA E6/E7 w/Reflex to HPV Genotypes 16, 18/45 (02/02/2023 11:17 AM EDT) HPV nRNA E6/E7 Not Detected Not Detected [facility] Comment:Methodology: Transcr iption-Mediated AmplificationThis assay detects E6/E7 viral messenger RNA (mRNA) from 14high-risk HPV types (16,18,31,33,35,39,45,51,52,56,58,59,66,68).Cervical sources are required for HPV testing.If a vaginal source from a patient who has had atotal hysterectomy with removal of cervix wassubmitted, please contact the testing laboratoryfor alternative testing options.For additional information, please refer tohttp://education.[employer]/faq/BDB677y6(This link if provided for information/educational purposes only.)THIS TEST WAS PERFORMED AT:[facility] [place] [phone] RABAGO MD HPV mRNA E6/E7 [facility] HPV 16 RNA [facility] HPV 18/45 RNA [facility] 02/02/2023 11:1 7 AM EDT 02/03/2023 10:40 AM EDT us Prabhjot Echols CNM LAB CYTOLOGY ORDERABLES F inal Result [facility] [address] [place] [phone] * Pap Smear (02/02/2023 11:17 AM EDT) 02/02/2023 11:1 7 AM EDT 02/03/2023 10:40 AM EDT Narrative [facility] - 02/19/2023 8:15 AM EDT ----- ------- Name: Selene Gray I ?Age/Sex: 27/F ? : 1995 Unit#: [id number] ?? Attend Dr: PRABHJOT ECHOLS CNM ?Re02/02/23 ?Status: DEP REF ? Location: HO.HHCLNP ? Disch: ? ----- ------- SPEC : [id number] ?RECD: 02/03/23 ? STATUS: ??SOUT ? REQ NUM: [id number] ? AICHA: 02/02/23 ? SUBM DR: PRABHJOT ECHOLS CNM ? ENTERED: ??02/04/23 ?SP TYPE: Pap Smr ?OTHR : ? ORDERED: ??Pap Smear ? Interpretation ?? Satisfactory for evaluation. ?? Negative for intraepithelial lesion or malignancy. ?HPV mRNA E6/E7: ?NOT DETECTED ? This assay detects E6/E7 viral messenger RNA (mRNA) from 14 high-risk HPV types (16, 18, ?? 31, 33, 35, 39, 45, 51, 52, 56, 58, 59, 66, 68) ?? HPV testing performed by [facility], [place], [place]. ??See reference laboratory ?? pion of the EMR for entire report. ?Clinical Information LMP: Unknown date Previous PAP test: Unknown date, LSIL HPV+ ? Material Received ?? ThinPrep-Cervical ----- ------- Signed (signature on file) SAMAN Mayes ([facility]) 02/19/23 0815 ? ----- ------- ? END OF REPORT ? us Prabhjot Echols [facility] CYTOLOGY ORDERABLES F inal Result [facility] [address] [place] [address] [phone] from Last 3 Months or Most Recently Relevant to Health Maintenance Insurance Care Teams Scientific Artist Relationship Specialty Start Date End Date Maryanne Crockett MD [address] [place] [phone] PCP - General Family Medicine 06/29/18
--- NOTE | 2024-08-19 15:33 | A.OFFVIS_ITS ---
Intake Visit Reasons: urinary incontinence Intake Note: Patient is present for urinary incontinence Urology Meds: none Antibiotic Allergies: amox, PCN Blood Thinners: none Last PVR: Todays PVR: 0 Guest Experience Captain Required: No Allergies amoxicillin [Amoxicillin] Allergy (Intermediate, Verified 08/19/24 15:34) SEVERE FACIAL SWELLING Penicillins Allergy (Intermediate, Verified 08/19/24 15:34) SEVERE FACIAL SWELLING HPI Comments Details: Selene is a 29-year-old female who is here for evaluation for urinary incontinence. Patient has had 2 deliveries 1st 1 was vaginal and the 2nd child via in 2018. She states she a sling procedure in [address] Hugo at [facility] she had improvement in bladder control for about 3-4 months. She states that she does Kegel exercises. The urine leakage has progressively worsened she has leakage associated sexual activity, complains urgency and sometimes feels that she has difficulty emptying bladder. She had a bladder ultrasound bladder capacity 320 mL postvoid residual. Urinalysis today notes blood however the patient is menses. I have discussed evaluation with cystoscopy due to sling and we will check a ultrasound. Urinary symptoms are mixed including complaints of urgency, leakage of urine on associated with urgency or stress and intermittent hesitancy. [facility] Medical History Cyst of brain FHx: migraine headaches Anxiety Surgical History Hx of section History of appendectomy Family History Mother No problems noted. 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[employer] Female Reproductive History Menstrual Age of Menarche: 9 Review of Systems Const All systems reviewed & are unremarkable except as noted in HPI and below Reports no additional complaints Eyes Reports no additional complaints ENT Reports no additional complaints Card Reports no additional complaints Resp Reports no additional complaints GI Reports no additional complaints Reports as per HPI Musc Reports no additional complaints Skin/Breast Reports system reviewed and no additional complaints, except as documented Neuro Reports no additional complaints Psych Reports no additional complaints Endo Reports no additional complaints Robinson/Lymph Reports no additional complaints Aller/Immun Reports no additional complaints Physical Exam Const General: cooperative, healthy appearing and no acute distress Orientation/consciousness: patient oriented x3 HEENT Head: Yes normal to inspection, Yes normocephalic and Yes atraumatic Eyes Conjunctivae: conjunctivae normal Neck Neck: Yes normal visual inspection and Yes trachea midline Chest Chest palpation & inspection: normal inspection of the chest Resp Effort & Inspection: normal respiratory effort GI Inspection: Yes normal to inspection Neuro General: patient oriented x3 Extrem General: No edema Psych Appearance: grossly normal Office Procedures Post Void Residual Post Residual Void Post Void Residual (PVR): 0 [id number]-[id number] Void Residual by ultrasound Results AMB Urinalysis, Automated UA Leukoctes 0 Eusebia/uL Last Edit by Britany Juarez MA on 08/19/24 15:49 UA Nitrite Negative Last Edit by Britany Juarez MA on 08/19/24 15:49 UA Urobilinogen 0.2 mg/dL Last Edit by Britany Juarez MA on 08/19/24 15:49 UA Protein 0 mg/dL Last Edit by Britany Juarez MA on 08/19/24 15:49 UA pH 6.0 Last Edit by Britany Juarez MA on 08/19/24 15:49 UA Blood 200 Nikita/uL Last Edit by Britany Juarez MA on 08/19/24 15:49 currently on menses Britany Juarez 08/19/24 15:49 UA Specific [place] 1.015 Last Edit by Britany Juarez MA on 08/19/24 15:49 UA Ketone Negative Last Edit by Britany Juarez MA on 08/19/24 15:49 UA Bilirubin 0 mg/dL Last Edit by Britany Juarez MA on 08/19/24 15:49 UA Glucose 0 mg/dL Last Edit by Britany Juarez MA on 08/19/24 15:49 Results Reviewed Results Reviewed: Laboratory Last Values Urine pH (Auto) 6.0 08/19/24 15:46 Specific [place] (Auto) 1.015 08/19/24 15:46 Urine Protein (Auto) 0 mg/dL 08/19/24 15:46 Glucose (UA)(Auto) 0 mg/dL 08/19/24 15:46 Urine Ketones (Auto) Negative 08/19/24 15:46 Urine Blood (Auto) 200 Nikita/uL 08/19/24 15:46 Urine Nitrite (Auto) Negative 08/19/24 15:46 Urine Bilirubin (Auto) 0 mg/dL 08/19/24 15:46 Urine Urobilinogen (Auto) 0.2 mg/dL 08/19/24 15:46 Leukocyte Esterase (Auto) 0 Eusebia/uL 08/19/24 15:46 Assessment & Plan Assessment & Plan (1) Mixed stress and urge urinary incontinence: Code(s): N39.46 - Mixed incontinence Category: Medical (2) Urinary hesitancy: Code(s): R39.11 - Hesitancy of micturition Category: Medical (3) History of midurethral sling procedure: Code(s): Z98.890 - Other specified postprocedural states Category: Surgical Plan Renal ultrasound follow-up office cystoscopy. surveillance urine c/s. Further evaluation urodynamics Orders: Orders AMB Urinalysis Automated Today Z13.9 - Encounter for screening, unspecified AMB Post Void Residual by ultrasound Today R32 - Unspecified urinary incontinence Urine Culture Today N39.0 - Urinary tract infection, site not specified Patient Instructions: The patient had an opportunity to ask questions regarding treatment plan. The patient expressed understanding and agreement with the above treatment plan. The patient is aware they should contact our office by phone for worsening of their current condition or the appearance of new symptoms. Compliance is encouraged with any medications and followup testing that is ordered. It is a privilege to be allowed the opportunity to participate in the urologic care of your patient. If you have any questions or concerns regarding treatment for the above conditions please do not hesitate to contact me. The office telephone contact is [phone]. This note is constructed in part using voice recognition software. While every effort has been made to ensure accuracy laboratory apparatus glass blower errors may have been included. Yours sincerely, Shelbie Moura MD Coding Level of Care Code New Pt Level 4 (44165) Diagnoses Mixed stress and urge urinary incontinence N39.46 Urinary hesitancy R39.11 History of midurethral sling procedure Z98.890 CPT Codes Post Residual Void - PVR CPT Code: 12903-Exzh Void Residual by ultrasound ([id number])
== END 2024-08-19 16:15 | disposition home or self-care (01) ==
PROVIDERS: PCP Family Medicine; Visit Provider Urology
DX: N39.46 Mixed incontinence (principal); R39.11 Hesitancy of micturition; Z98.890 Other specified postprocedural states; Z13.9 Encounter for screening, unspecified
CPT/HCPCS: 99204

== ENCOUNTER 2024-08-19 15:00 | Outpatient (REF) | payer BC, SELFPAY ==
--- OUTSIDE RECORDS SUMMARY | 2024-08-19 17:28 | XMS_ITS | Encounter Summary ---
Author Organization [employer] Address [address] [place] [address] 7 [place] [address] Care Team Providers Care Industrial Engineering Technologist Name Role Phone Maryanne Crockett MD Primary Care Provider [phone] Reason for Visit * Reason Onset Date Comments Med Refill 07/08/2024 Encounter Details Date Type Department Care Team ([facility] st Contact Info) Description 07/08/2024 Refill [facility] MEDICINE [address] [place], [place] [phone] Maryanne Crockett MD [address] [place], [place] [phone] Social History Tobacco Use Types Packs/Day Years [...] documented as of this encounter Care Teams Industrial Engineering Technologist Relationship Specialty Start Date End Date Maryanne Crockett MD [address] [place] [address] PCP - General Family Medicine 06/29/18 documented as of this encounter
--- OUTSIDE RECORDS SUMMARY | 2024-08-19 17:28 | XMS_ITS | Encounter Summary ---
Author Organization [employer] Address [address] [place] [address] 7 [place] [address] Care Team Providers Care Hotel Or Motel Manager Name Role Phone Maryanne Crockett MD Primary Care Provider [phone] Reason for Visit * Reason Onset Date Comments Letter for School/Work 04/24/2023 Encounter Details Date Type Department Care Team ([facility] st Contact Info) Description 04/24/2023 Telephone [facility] MEDICINE [address] [place], [place] [phone] Maryanne Crockett MD [address] [place], [place] [phone] Letter for School/Work Social History Tobacco Use [...] EDT Tc from patient requesting statues of [facility] paperwork states place of employment faxed documents over any questions please call [phone] documented in this encounter Plan of Treatment Not on file documented as of this encounter Visit Diagnoses Not on filedocumented in this encounter Additional Health Concerns Assessment Noted Time PHQ-9 Depression Total Score: 12 023 9:16 AM EDT documented as of this encounter Care Teams Hotel Or Motel Manager Relationship Specialty Start Date End Date Maryanne Crockett MD [address] [place] [phone] PCP - General Family Medicine 06/29/18 documented as of this encounter
--- OUTSIDE RECORDS SUMMARY | 2024-08-19 17:28 | XMS_ITS | Encounter Summary ---
Author Organization [employer] Address [address] [place] [address] 7 [place] [address] Care Team Providers Care Denture Packer Name Role Phone Maryanne Crockett MD Primary Care Provider [phone] Reason for Visit * Reason Onset Date Comments chart prep 08/04/2024 Encounter Details Date Type Department Care Team ([facility] st Contact Info) Description 08/04/2024 Telephone [facility] MEDICINE [address] [place] [address] Earnestine Santiago MA chart prep Social History [...] documented as of this encounter Care Teams Denture Packer Relationship Specialty Start Date End Date Maryanne Crockett MD [address] [place] [phone] PCP - General Family Medicine 06/29/18 documented as of this encounter
--- OUTSIDE RECORDS SUMMARY | 2024-08-19 17:28 | XMS_ITS | Clinical Summary ---
Author Organization [employer] Address [address] [place] [address] 7t [place] [address] Care Team Providers Care Pickle Pumper Name Role Phone Maryanne Crockett MD Primary Care Provider [phone] Allergies Active Allergy Reactions Criticality Noted Date [...] 02/19/23 YORDAN titer 1:320 - seen by putter in [facility], and suggested that it [...] 02/19/23 YORDAN titer 1:320 - seen by putter in, and suggested that it was false positive [...] tried physical therapy - upcoming appointment with putter in Assessment & Plan (01/27/2024 2:29 PM EDT): [...] exercises -referred to PT -advised contact [facility] if sx change or worsen Class [...] first session. She has upcoming appointment with [facility] for OP individual therapy on 05/28. She [...] to change PLAN: 1. Follow up with [facility]: Not recommended for follow-up 2. Patient goal [...] Shared information for the [facility] program with [facility] for walk-in appointments and urgent care if needed. At this time Selene Gray meets criteria for Visit Diagnoses: Problem List Items Addressed This Visit Other Moderate episode of recurrent major depressive disorder (CMS/HCC) Anxiety Work-related stress Patient ready to address current needs Yes Strengths include readiness and motivation to change PLAN: 1. Follow up with [facility]: Recommended for follow-up: Scheduled BE in a month 2. Patient goal is to start individual therapy and feel less depressed 3. Behavioral Recommendations a. Referral for OP individual therapy b. Contact [facility] program if needed for walk-in appointments [...] first session. She has upcoming appointment with [facility] for OP individual therapy on 05/28. She [...] to change PLAN: 1. Follow up with [facility]: Not recommended for follow-up 2. Patient goal [...] Shared information for the [facility] program with [facility] for walk-in appointments and urgent care if needed. At this time Selene Gray meets criteria for Visit Diagnoses: Problem List Items Addressed This Visit Other Moderate episode of recurrent major depressive disorder (CMS/HCC) Anxiety Work-related stress Patient ready to address current needs Yes Strengths include readiness and motivation to change PLAN: 1. Follow up with [facility]: Recommended for follow-up: Scheduled BE in a month 2. Patient goal is to start individual therapy and feel less depressed 3. Behavioral Recommendations a. Referral for OP individual therapy b. Contact [facility] program if needed for walk-in appointments [...] antibody and decreased complement - evaluated by [facility] rheumatology in Jan 2023 - referred to another , upcoming appointment with Dr. Alexander - possible fibromyalgia - continue staying physically active / exercising for both mental and physical health Assessment & Plan (01/27/2024 2:32 PM EDT): - evaluated for rheumatological disorder: YORDAN titer 1:320 in Jan 2023; positive anti-ds DNA antibody and decreased complement - evaluated by [facility] rheumatology in Jan 2023 - refer to another rheumatology - possible fibromyalgia - continue staying physically active / exercising for both mental and physical health Assessment & Plan (02/19/2023 1:21 PM EDT): - evaluate for rheumatological disorder - possible fibromyalgia - consider referring to putter in - continue cyclobenzaprine and APAP prn - continue exercising - follow up in 6 mo Moderate episode of recurrent major depressive d isorder 07/21/2022 Assessment & Plan (08/08/2024 7:28 PM EST): - PHQ9 score 12 in Mar 2023 - seen by [facility] - she did not request antidepressant or continue with outpatient service Assessment & Plan (04/06/2024 5:58 AM EDT): - PHQ9 score 12 in Mar 2023 - seen by [facility] behavioral health service - she did not request antidepressant or continue with outpatient service Assessment & Plan (01/27/2024 2:41 PM EDT): - PHQ9 score 12 in Mar 2023 - seen by [facility] behavioral health service - she did [...] first session. She has upcoming appointment with [facility] for OP individual therapy on 05/28. She [...] to change PLAN: 1. Follow up with [facility]: Not recommended for follow-up 2. Patient goal [...] Shared information for the [facility] program with [facility] for walk-in appointments and urgent care if needed. At this time Selene Gray meets criteria for Visit Diagnoses: Problem List Items Addressed This Visit Other Moderate episode of recurrent major depressive disorder (CMS/HCC) Anxiety Work-related stress Patient ready to address current needs Yes Strengths include readiness and motivation to change PLAN: 1. Follow up with [facility]: Recommended for follow-up: Scheduled BE in a month 2. Patient goal is to start individual therapy and feel less depressed 3. Behavioral Recommendations a. Referral for OP individual therapy b. Contact [facility] program if needed for walk-in appointments [...] AM EDT): - Pt was following with [facility] neurology, last visit in September 2022, [...] PM EDT): - Pt is following with [facility] neurology, last visit in September 2022, [...] PM EDT): - Pt is following with [facility] neurology, last visit in September 2022, [...] PM EST): - Pt is following with [facility] neurology, last seen on 04/01/22; - [...] 6:00 AM EDT): -Pt missed appt w/ Bullard Machine Operator at [facility], and was going to contact another turkey egg gatherer of her choice. - continue working on building healthy relationship with food and eating Assessment & Plan (07/21/2022 10:39 AM EST): Pt missed appt w/ Bullard Machine Operator at [facility]. -Pt states she has contact for another turkey egg gatherer; she will contact new turkey egg gatherer. Allergic rhinitis 12/28/2013 Assessment & Plan (04/06/2024 [...] Description 08/08/2024 3:45 PM EST Office Visit [address] [address] Maryanne Crockett MD Mixed stress and urge urinary incontinence (Primary Dx); Moderate episode of recurrent major depressive disorder (CMS/HCC); Positive YORDAN (antinuclear antibody); Acute cough; Influenza A; Dietary counseling; Exercise counseling; Class 1 obesity due to excess calories without serious comorbidity with body mass index (BMI) of 30.0 to 30.9 in adult; Class 1 obesity 08/04/[address] [address] Earnestine Santiago MA chart prep 07/08/[address] [address] Maryanne Crockett MD 07/08/[address] [address] Maryanne Crockett MD 07/07/[address] [address] Maryanne Crockett MD Urgent Care-Status Check 07/06/[address] [address] Maryanne Crockett MD Nurse Triage 06/09/[address] [address] [place] railroad maintenance clerk Orders 06/08/2024 2:45 PM EST Office Visit [address] [address] Yazmin Valdes FNP Mixed stress and urge urinary incontinence (Primary Dx); Acute low back pain without sciatica, unspecified back pain laterality 06/08/2024 Orders Only [address] [address] Yazmin Valdes FNP 06/08/[address] [address] Maryanne Crockett MD Nurse Triage from Last [...] Negative Negative, Indeterminate QC Media Lot # [id number] Lot# Expiration Date Swab 08/08/2024 4:42 PM EST Maryanne Crockett MD POINT OF CARE TEST ENTER/EDIT OR DERABLES Final Result * (ABNORMAL) POCT Influenza A manually resulted (08/08/2024 4:41 PM EST) Rapid Influenza A Ag Positive( A) Negative, Indeterminate QC Media Lot # [id number] Lot# Expiration Date Swab Nasopharyngeal structure / Unknown 08/08/2024 4:41 PM EST us Maryanne Crockett MD POINT OF CARE TEST ENTER/EDIT OR DERABLES Final Result * POCT Rapid COVID Ag (08/08/2024 4:40 PM EST) Rapid COVID Ag Negative QC Media Lot # [id number] Lot# Expiration Date [id number] Swab 08/08/2024 4:40 PM EST us Maryanne Crockett MD POINT OF CARE TEST ENTER/EDIT OR DERABLES Final Result * US BLADDER (06/14/2024 3:41 PM EST) Anatomical Region Laterality Modality Abdomen Ultrasound 06/14/2024 3:41 PM EST Narrative 06/26/2024 9:02 AM EST ? [facility] ?[address] ?[place] [address] ? Ultrasound Report ? Signed ? Patient: Selene Gray I ?MR#: [id number] ?? [id number] ? : 1995 ?Acct:[id number] ? Age/Sex: 29 / F ?ADM Date: 06/14/24 ? Loc: HO.US ? Attending Dr: Valeria Mcdaniels MD ? Ordering Physician: Valeria Mcfarlane MD ?? Date of Service: 06/14/24 ?? Procedure(s): US bladder ?? Accession Number(s): [id number] ? cc: Valeria Mcfarlane MD ? EXAMINATION: [...] DD/ 1541 ? TD/TT: 12/17/24 1545 ? Railway Signalling Engineer: ? Procedure Note Donotuseinterpreter, Image - 06/26/[address] [address] Ultrasound Report Signed Patient: Selene Grya IMR#: [id number] : 1995Acct:[id number] Age/Sex: 29 / FADM Date: 06/14/24 Loc: HO.US Attending Dr: Valeria Mcdaniels MD Ordering Physician: Valeria Mcfarlane MD Date of Service: 06/14/24 Procedure(s): US bladder Accession Number(s): [id number] cc: Valeria Mcfarlane MD EXAMINATION: US PELVIS [...] 06/26/24 0859 DD/ 1541 TD/TT: 06/14/24 1545 Railway Signalling Engineer: us Valeria Mcdaniels MD IMG US PROCEDURES [...] Media Lot # [id number] Lot# Expiration Date [id number] Urine 06/08/2024 3:39 PM EST [facility] POINT OF CARE TEST ENTER/EDIT ORDERABLES Final Result * Cancelled Urine (06/08/2024 12:22 PM EST) Cancelled Urine SEE NOTE [facility] Comment:THE FOLLOWING TESTS WERE CANCELLED: UA CLEAN CATCHREASON: NO SPECIMAN RECIEVED 06/08/2024 12:2 2 PM EST 06/09/2024 12:24 PM EST Yazminpaulino Grayarpit [facility] HISTORICAL/NON ORDERABLE LABS Final Result Performing Organization Address [facility] Co de Phone Number [facility] [address] [place] [phone] * Urine Culture Routine (06/08/2024 12:00 AM EST) Urine Urine specimen obtained by clean catch procedure / Unknown 06/08/2024 06/08/2024 Comment:CC Narrative [facility] - 06/10/2024 11:34 AM EST Urine Culture No growth. Specimen Source: [facility]rine clean [facility] - GENERAL ORD ERABLES Final Result Performing Organization Address City/[facility] Co de Phone Number [facility] [address] [place] [address] [phone] * Lipid Panel, Standard (01/16/2024 10:32 AM EDT) Triglycerides 59 <150 mg/dL [facility] Comment:Desirable Triglyceri de: less than 150 mg/dLBorderline High Triglyceride 150-199 mg/dLHigh Triglyceride: 200-499 mg/dLVery High Triglyceride: greater than or equal to 5OO mg/dL Cholesterol 158 <200 mg/dL [facility] Comment:Desirable Cholestero l: less than 200 mg/dLBorderline High Cholesterol: 200-239 mg/dLHigh Cholesterol: greater than 239 mg/dL LDL Cholesterol Calculated 99 <100 mg/dL [facility] Comment:Desirable LDL: less than 100 mg/dLNear Optimal/Above Optimal LDL: 110- 129 mg/dLBorderline High LDL: 130-159 mg/dLHigh LDL: 160-189 mg/dLVery High LDL: greater than or equal to 190 mg/dL HDL Cholesterol 48 >40 mg/dL [facility] Comment:Desirable HDL: great er than 40 mg/dL Note: This HDL assay may give artificially low results in patients with liver disease. Blood Venous blood specimen / Unknown 01/16/2024 10:32 AM EDT 01/16/2024 10:32 AM EDT us Hortencia Olsen DO LAB BLOOD ORDERABLES Final R esult Performing Organization Address [facility] Co de Phone Number [facility] [address] [place] [phone] * Hepatitis C Antibody Reflex (02/19/2023 11:51 AM EDT) Hepatitis C Antibody Nonreactive Nonreactive [facility] Comment:Antibodies to HCV no t detected; does not exclude early acuteHCV infection. 02/19/2023 11:5 1 AM EDT 02/19/2023 1:41 PM EDT us Maryanne Crockett MD LAB BLOOD ORDERABLES Final Resul t Performing Organization Address [facility] Co de Phone Number [facility] [address] [place] [phone] * HIV Ab/Ag ([facility]) (02/19/2023 11:51 AM EDT) HIV AB/AG Nonreactive Nonreactive [facility] Comment:HIV-1 p24 Ag and/or HIV-1/HIV-2 Ab not detected.A test result that is nonreactive does not exclude thepossibility of exposure to or infection with HIV-1 and/orHIV-2. Nonreactive results in this assay for individualswith prior exposure to HIV-1 and/or HIV-2 may be due toantigen and antibody levels that are below the limit ofdetection of this assay.The [employer] Program Control Analyst HIV Ag/Ab Combo assay result andsupplemental assay results should be interpreted inconjunction with the patient's clinical presentation,history and other laboratory results. If the results areinconsistent with clinical evidence, additional testing issuggested to confirm the result. 02/19/2023 11:5 1 AM EDT 02/19/2023 1:41 PM EDT us Maryanne Crockett MD LAB BLOOD ORDERABLES Final Resul t [facility] [address] [place] [phone] * HPV mRNA E6/E7 w/Reflex to HPV Genotypes 16, 18/45 (02/02/2023 11:17 AM EDT) HPV nRNA E6/E7 Not Detected Not Detected [facility] Comment:Methodology: Transcr iption-Mediated AmplificationThis assay detects E6/E7 viral messenger RNA (mRNA) from 14high-risk HPV types (16,18,31,33,35,39,45,51,52,56,58,59,66,68).Cervical sources are required for HPV testing.If a vaginal source from a patient who has had atotal hysterectomy with removal of cervix wassubmitted, please contact the testing laboratoryfor alternative testing options.For additional information, please refer [email or web address]/faq/[email or web address](This link if provided for information/educational purposes only.)THIS TEST WAS PERFORMED AT:[facility] [place] [phone] RABAGO MD HPV mRNA E6/E7 [facility] HPV 16 RNA [facility] HPV 18/45 RNA [facility] 02/02/2023 11:1 7 AM EDT 02/03/2023 10:40 AM EDT us Prabhjot Echols CNM LAB CYTOLOGY ORDERABLES F inal Result [facility] [address] [place] [phone] * Pap Smear (02/02/2023 11:17 AM EDT) 02/02/2023 11:1 7 AM EDT 02/03/2023 10:40 AM EDT Narrative [facility] - 02/19/2023 8:15 AM EDT ----- ------- Name: Selene Gray I ?Age/Sex: 27/F ? : 1995 Unit#: [id number] ?? Attend Dr: PRABHJOT ECHOLS CNM ?Re02/02/23 ?Status: DEP REF ? Location: HO.HHCLNP ? Disch: ? ----- ------- SPEC : [id number] ?RECD: 02/03/23 ? STATUS: ??SOUT ? REQ NUM: [id number] ? AICHA: 02/02/23 ? SUBM DR: PRABHJOT [...] 66, 68) ?? HPV testing performed by [facility], [place], [place]. ??See reference laboratory ?? pion of the EMR for entire report. ?Clinical Information LMP: Unknown date Previous PAP test: Unknown date, LSIL HPV+ ? Material Received ?? ThinPrep-Cervical ----- ------- Signed (signature on file) SAMAN Mayes ([facility]) 02/19/23 0815 ? ----- ------- ? END OF REPORT ? us Prabhjot Echols [facility] CYTOLOGY ORDERABLES F inal Result [facility] [address] [place] [address] [phone] from Last 3 Months or Most Recently Relevant to Health Maintenance Insurance Care Teams Pickle Pumper Relationship Specialty Start Date End Date Maryanne Crockett MD [address] [place] [phone] PCP - General Family Medicine 06/29/18
--- OUTSIDE RECORDS SUMMARY | 2024-08-19 17:28 | XMS_ITS | Encounter Summary ---
Author Organization [employer] Address [address] [place] [address] 7 [place] [address] Care Team Providers Care Ad Setter Name Role Phone Maryanne Crockett MD Primary Care Provider [phone] Reason for Visit * Reason Onset Date Comments Triage 08/14/2022 Encounter Details Date Type Department Care Team ([facility] st Contact Info) Description 08/14/2022 Telephone [facility] MEDICINE [address] [place], [place] [phone] Maryanne Crockett MD [address] [place], [place] [phone] Triage Social History Tobacco Use Types Packs/Day [...] the past 12 months, has t he netTALK, gas, oil or water Trading[employer] threatened to shut off services in your [...] for this pain. Pt also advised of [facility] tomorrow if decides wants to be [...] caller accepted this outcome Please contact at [phone] documented in this encounter Plan of Treatment Not on file documented as of this encounter Visit Diagnoses Not on filedocumented in this encounter Care Teams Ad Setter Relationship Specialty Start Date End Date Maryanne Crockett MD [address] [place] [address] PCP - General Family Medicine 06/29/18 documented as of this encounter
--- OUTSIDE RECORDS SUMMARY | 2024-08-19 17:28 | XMS_ITS | Encounter Summary ---
Author Organization [employer] Address [address] [facility] [address]t [place] [address] Care Team Providers Care Acid Crane Operator Name Role Phone Maryanne Crockett MD Primary Care Provider [phone] Encounter Details Date Type Department Care Team ([facility] st Contact Info) Description 06/19/2023 Orders Only [facility] MEDICINE [address] [place], [place] [phone] Maryanne Crockett MD [address] [place], [place] [phone] Social History Tobacco Use Types Packs/Day Years [...] documented as of this encounter Care Teams Acid Crane Operator Relationship Specialty Start Date End Date Maryanne Crockett MD [address] [place] [phone] PCP - General Family Medicine 06/29/18 documented as of this encounter
--- OUTSIDE RECORDS SUMMARY | 2024-08-19 17:28 | XMS_ITS | Encounter Summary ---
Author Organization [employer] Address [address] [place] [address] 7 [place] [address] Care Team Providers Care Lecturer In Marketing Name Role Phone Maryanne Crockett MD Primary Care Provider [phone] Reason for Visit * Reason Onset Date Comments Nurse Triage 06/18/2023 Encounter Details Date Type Department Care Team ([facility] st Contact Info) Description 06/18/2023 Telephone [facility] MEDICINE [address] [place], [place] [phone] Maryanne Crockett MD [address] [place], [place] [phone] Nurse Triage Social History Tobacco Use Types [...] for the past 2 Days Patient speaks Panamanian. Advised triage nurse will call patient back. documented in this encounter Plan of Treatment Not on file documented as of this encounter Visit Diagnoses Not on filedocumented in this encounter Additional Health Concerns Assessment Noted Time PHQ-9 Depression Total Score: 12 023 9:16 AM EDT documented as of this encounter Care Teams Lecturer In Marketing Relationship Specialty Start Date End Date Maryanne Crockett MD [address] [place] [address] PCP - General Family Medicine 06/29/18 documented as of this encounter
--- OUTSIDE RECORDS SUMMARY | 2024-08-19 17:28 | XMS_ITS | Encounter Summary ---
Author Organization [employer] Address [address] [place] [address] Care Team Providers Care Police Officer Crime Prevention Name Role Phone Maryanne Crockett MD Primary Care Provider [phone] Encounter Details Date Type Department Care Team (Late st Contact Info) Description 02/04/2023 Orders Only [facility] MEDICINE [address] [place], [place] [phone] [place] [address] Social History Tobacco Use Types Packs/Day Years [...] MD IN CLINIC/BEDSIDE ORDERABLES Fin al Result [facility] [address] [place] [address] [phone] documented in this encounter Visit Diagnoses Not on filedocumented in this encounter Care Teams Police Officer Crime Prevention Relationship Specialty Start Date End Date Maryanne Crockett MD 230 [place] [address] PCP - General Family Medicine 06/29/18 documented as of this encounter
--- OUTSIDE RECORDS SUMMARY | 2024-08-19 17:28 | XMS_ITS | Encounter Summary ---
Author Organization [email or web address] Address [address] [place] [address] 7t [place] [address] Care Team Providers Care Management Aide Name Role Phone Maryanne Crockett MD Primary Care Provider [phone] Encounter Details Date Type Department Care Team (Late st Contact Info) Description 02/24/2023 Orders Only [facility] MEDICINE 230 [place], [place] [phone] Maryanne Crockett MD [address] [place], [place] [phone] Positive YORDAN (antinuclear antibody) (Primary Dx); Arthralgia, [...] documented as of this encounter Care Teams Management Aide Relationship Specialty Start Date End Date Maryanne Crockett MD [address] [place] [address] PCP - General Family Medicine 06/29/18 documented as of this encounter
--- OUTSIDE RECORDS SUMMARY | 2024-08-19 17:28 | XMS_ITS | Encounter Summary ---
Author Organization [employer] Address [address] [place] [address] 7 [place] [address] Care Team Providers Care Lithography Contact Worker Name Role Phone Maryanne Crockett MD Primary Care Provider [phone] Encounter Details Date Type Department Care Team (Late st Contact Info) Description 08/08/2024 3:45 PM EST Office Visit [facility] MED[facility]INE [address] [place], [place] [phone] Maryanne Crockett MD [address] [place], [place] [phone] Mixed stress and urge urinary incontinence (Primary [...] last encounter was 03/29/2024. Referred to another insurance producer. Interval history: Seen by insurance producer at [facility] on 04/25/24. Recommended to try meds [...] also notes she was told by her insurance producer she did not need anymore testing for [...] Indeterminate Final QC Media Lot # 08/08/2024 [id number] Final Lot# Expiration Date 08/08/2024 [id number] Final Rapid Influenza B Ag 08/08/2024 Negative Negative, Indeterminate Final QC Media Lot # 08/08/2024 [id number] Final Lot# Expiration Date 08/08/2024 [id number] Final Rapid COVID Ag 08/08/2024 Negative Final QC Media Lot # 08/08/2024 [id number] Final Lot# Expiration Date 08/08/2024 [id number] Final Assessment/Plan Problem List Items Addressed This [...] 02/19/23 YORDAN titer 1:320 - seen by insurance producer [facility], and suggested that it was false positive [...] 02/19/23 YORDAN titer 1:320 - seen by insurance producer [facility], and suggested that it was false positive [...] Negative Negative, Indeterminate QC Media Lot # [id number] Lot# Expiration Date Swab 08/08/2024 4:42 PM EST us Maryanne Crockett MD POINT OF CARE TEST ENTER/EDIT OR DERABLES Final Result * (ABNORMAL) POCT Influenza A manually resulted (08/08/2024 4:41 PM EST) Rapid Influenza A Ag Positive( A) Negative, Indeterminate QC Media Lot # [id number] Lot# Expiration Date Swab Nasopharyngeal structure / Unknown 08/08/2024 4:41 PM EST Maryanne Crockett MD POINT OF CARE TEST ENTER/EDIT OR DERABLES Final Result * POCT Rapid COVID Ag (08/08/2024 4:40 PM EST) Rapid COVID Ag Negative QC Media Lot # [id number] Lot# Expiration Date [id number] Swab 08/08/2024 4:40 PM EST Maryanne Crockett [...] documented as of this encounter Care Teams Lithography Contact Worker Relationship Specialty Start Date End Date Maryanne Crockett MD [address] [place] [address] PCP - General Family Medicine 06/29/18 documented as of this encounter
--- OUTSIDE RECORDS SUMMARY | 2024-08-19 17:28 | XMS_ITS | Encounter Summary ---
Author Organization [employer] Address [address] [place] [address] 7 [place] [address] Care Team Providers Care Fixed Assets Accountant Name Role Phone Maryanne Crockett MD Primary Care Provider [phone] Encounter Details Date Type Department Care Team (Late st Contact Info) Description 02/23/2023 Orders Only [facility] MEDICINE 230 [place] [address] Maryanne Crockett MD 230 [place] [address] Upper back pain (Primary Dx); Neck pain [...] documented as of this encounter Care Teams Fixed Assets Accountant Relationship Specialty Start Date End Date Maryanne Crockett MD [address] [place] [address] PCP - General Family Medicine 06/29/18 documented as of this encounter
== END 2024-08-19 15:01 | disposition home or self-care (01) ==
LOC: HO.LNP 15:00
PROVIDERS: Visit Provider Urology
DX: R32 Unspecified urinary incontinence (principal); N39.0 Urinary tract infection, site not specified
CPT/HCPCS: 87086; 87147; 87186

== ENCOUNTER 2024-08-19 15:00 | Outpatient (REF) | payer BC, SELFPAY ==
--- OUTSIDE RECORDS SUMMARY | 2024-08-19 16:18 | XMS_ITS | Encounter Summary ---
Author Organization [employer] Address [address] [place] [address] [address] [place] [address] Care Team Providers Care Master Scheduler Name Role Phone Maryanne Crockett MD Primary Care Provider [phone] Encounter Details Date Type Department Care Team (Late st Contact Info) Description 02/23/2023 Orders Only [facility] [address] [place] [address] Maryanne Crockett MD [address] [place] [address] Upper back pain (Primary Dx); Neck pain [...] documented as of this encounter Care Teams Master Scheduler Relationship Specialty Start Date End Date Maryanne Crockett MD [address] [place] [address] PCP - General Family Medicine 06/29/18 documented as of this encounter
--- OUTSIDE RECORDS SUMMARY | 2024-08-19 16:19 | XMS_ITS | Encounter Summary ---
Author Organization [employer] Address [address] [place] [address] [address] [place] [address] Care Team Providers Care Research Animal Attendant Name Role Phone Maryanne Crockett MD Primary Care Provider [phone] Reason for Visit * Reason Onset Date Comments Med Refill 07/08/2024 Encounter Details Date Type Department Care Team ([facility] st Contact Info) Description 07/08/2024 Refill [facility] [address] [place], [place] [phone] Maryanne Crockett MD [address] [place], [place] [phone] Social History Tobacco Use Types Packs/Day Years [...] documented as of this encounter Care Teams Research Animal Attendant Relationship Specialty Start Date End Date Maryanne Crockett MD [address] [place] [address] PCP - General Family Medicine 06/29/18 documented as of this encounter
--- OUTSIDE RECORDS SUMMARY | 2024-08-19 16:19 | XMS_ITS | Encounter Summary ---
Author Organization [employer] Address [address] [place] [address] [address] [place] [address] Care Team Providers Care Information Systems Architect Name Role Phone Maryanne Crockett MD Primary Care Provider [phone] Encounter Details Date Type Department Care Team (Late st Contact Info) Description 02/24/2023 Orders Only [facility] [address] [place], [place] [phone] Maryanne Crockett MD [address] [place], [place] [phone] Positive YORDAN (antinuclear antibody) (Primary Dx); Arthralgia, [...] documented as of this encounter Care Teams Information Systems Architect Relationship Specialty Start Date End Date Maryanne Crockett MD [address] [place] [phone] PCP - General Family Medicine 06/29/18 documented as of this encounter
--- OUTSIDE RECORDS SUMMARY | 2024-08-19 16:19 | XMS_ITS | Encounter Summary ---
Author Organization [employer] Address [address] [place] [address] [address] [place] [address] Care Team Providers Care Air Transport Professionals Name Role Phone Maryanne Crockett MD Primary Care Provider [phone] Reason for Visit * Reason Onset Date Comments Nurse Triage 06/18/2023 Encounter Details Date Type Department Care Team ([facility] st Contact Info) Description 06/18/2023 Telephone [facility] [address] [place], [place] [phone] Maryanne Crockett MD [address] [place], [place] [phone] Nurse Triage Social History Tobacco Use Types [...] for the past 2 Days Patient speaks Micronesian. Advised triage nurse will call patient back. documented in this encounter Plan of Treatment Not on file documented as of this encounter Visit Diagnoses Not on filedocumented in this encounter Additional Health Concerns Assessment Noted Time PHQ-9 Depression Total Score: 12 023 9:16 AM EDT documented as of this encounter Care Teams Air Transport Professionals Relationship Specialty Start Date End Date Maryanne Crockett MD [address] [place] [phone] PCP - General Family Medicine 06/29/18 documented as of this encounter
--- OUTSIDE RECORDS SUMMARY | 2024-08-19 16:19 | XMS_ITS | Encounter Summary ---
Author Organization [employer] Address [address] [place] [address] 7 [place] [address] Care Team Providers Care Car Ferrier Name Role Phone Maryanne Crockett MD Primary Care Provider [phone] Reason for Visit * Reason Onset Date Comments chart prep 08/04/2024 Encounter Details Date Type Department Care Team ([facility] st Contact Info) Description 08/04/[address] [facility] MEDICINE [address] [place] [address] Earnestine Santiago MA chart prep Social History [...] documented as of this encounter Care Teams Car Ferrier Relationship Specialty Start Date End Date Maryanne Crockett MD [address] [place] [phone] PCP - General Family Medicine 06/29/18 documented as of this encounter
--- OUTSIDE RECORDS SUMMARY | 2024-08-19 16:19 | XMS_ITS | Encounter Summary ---
Author Organization [employer] Address [address] [place] [address] 7 [place] [address] Care Team Providers Care Insurance Law Specialist Name Role Phone Maryanne Crockett MD Primary Care Provider [phone] Reason for Visit * Reason Onset Date Comments Letter for School/Work 04/24/2023 Encounter Details Date Type Department Care Team ([facility] st Contact Info) Description 04/24/2023 Telephone [facility] MEDICINE [address] [place], [place] [phone] Maryanne Crockett MD [address] [place], [place] [phone] Letter for School/Work Social History Tobacco Use [...] EDT Tc from patient requesting statues of [facility] paperwork states place of employment faxed documents over any questions please call [phone] documented in this encounter Plan of Treatment Not on file documented as of this encounter Visit Diagnoses Not on filedocumented in this encounter Additional Health Concerns Assessment Noted Time PHQ-9 Depression Total Score: 12 023 9:16 AM EDT documented as of this encounter Care Teams Insurance Law Specialist Relationship Specialty Start Date End Date Maryanne Crockett MD [address] [place] [phone] PCP - General Family Medicine 06/29/18 documented as of this encounter
--- OUTSIDE RECORDS SUMMARY | 2024-08-19 16:19 | XMS_ITS | Clinical Summary ---
Author Organization [employer] Address [address] [place] [address] 7t [place] [address] Care Team Providers Care Mainspring Former Arbor End Name Role Phone Maryanne Crockett MD Primary Care Provider [phone] Allergies Active Allergy Reactions Criticality Noted Date [...] 02/19/23 YORDAN titer 1:320 - seen by supervisor telephone answering service [facility], and suggested that it was false positive [...] 02/19/23 YORDAN titer 1:320 - seen by supervisor telephone answering service, and suggested that it was false positive [...] tried physical therapy - upcoming appointment with supervisor telephone answering service Assessment & Plan (01/27/2024 2:29 PM EDT): [...] stretching exercises -referred to PT -advised contact [facility] if sx change or worsen Class 1 [...] first session. She has upcoming appointment with [facility] for OP individual therapy on 05/28. She [...] to change PLAN: 1. Follow up with [facility]: Not recommended for follow-up 2. Patient goal [...] Shared information for the [facility] program with [facility] for walk-in appointments and urgent care if needed. At this time Selene Gray meets criteria for Visit Diagnoses: Problem List Items Addressed This Visit Other Moderate episode of recurrent major depressive disorder (CMS/HCC) Anxiety Work-related stress Patient ready to address current needs Yes Strengths include readiness and motivation to change PLAN: 1. Follow up with [facility]: Recommended for follow-up: Scheduled BE in a month 2. Patient goal is to start individual therapy and feel less depressed 3. Behavioral Recommendations a. Referral for OP individual therapy b. Contact [facility] program if needed for walk-in appointments [...] first session. She has upcoming appointment with [facility] for OP individual therapy on 05/28. She [...] to change PLAN: 1. Follow up with [facility]: Not recommended for follow-up 2. Patient goal [...] Shared information for the [facility] program with [facility] for walk-in appointments and urgent care if needed. At this time Selene Gray meets criteria for Visit Diagnoses: Problem List Items Addressed This Visit Other Moderate episode of recurrent major depressive disorder (CMS/HCC) Anxiety Work-related stress Patient ready to address current needs Yes Strengths include readiness and motivation to change PLAN: 1. Follow up with [facility]: Recommended for follow-up: Scheduled BE in a month 2. Patient goal is to start individual therapy and feel less depressed 3. Behavioral Recommendations a. Referral for OP individual therapy b. Contact [facility] program if needed for walk-in appointments [...] antibody and decreased complement - evaluated by [facility] rheumatology in Jan 2023 - referred to another , upcoming appointment with Dr. Alexander - possible fibromyalgia - continue staying physically active / exercising for both mental and physical health Assessment & Plan (01/27/2024 2:32 PM EDT): - evaluated for rheumatological disorder: YORDAN titer 1:320 in Jan 2023; positive anti-ds DNA antibody and decreased complement - evaluated by [facility] rheumatology in Jan 2023 - refer to another rheumatology - possible fibromyalgia - continue staying physically active / exercising for both mental and physical health Assessment & Plan (02/19/2023 1:21 PM EDT): - evaluate for rheumatological disorder - possible fibromyalgia - consider referring to supervisor telephone answering service - continue cyclobenzaprine and APAP prn - continue exercising - follow up in 6 mo Moderate episode of recurrent major depressive d isorder 07/21/2022 Assessment & Plan (08/08/2024 7:28 PM EST): - PHQ9 score 12 in Mar 2023 - seen by [facility] - she did not request antidepressant or continue with outpatient service Assessment & Plan (04/06/2024 5:58 AM EDT): - PHQ9 score 12 in Mar 2023 - seen by [facility] - she did not request antidepressant or continue with outpatient service Assessment & Plan (01/27/2024 2:41 PM EDT): - PHQ9 score 12 in Mar 2023 - seen by [facility] service - she did [...] first session. She has upcoming appointment with [facility] for OP individual therapy on 05/28. She [...] to change PLAN: 1. Follow up with [facility]: Not recommended for follow-up 2. Patient goal [...] Shared information for the [facility] program with [facility] for walk-in appointments and urgent care if needed. At this time Selene Gray meets criteria for Visit Diagnoses: Problem List Items Addressed This Visit Other Moderate episode of recurrent major depressive disorder (CMS/HCC) Anxiety Work-related stress Patient ready to address current needs Yes Strengths include readiness and motivation to change PLAN: 1. Follow up with [facility]: Recommended for follow-up: Scheduled BE in a month 2. Patient goal is to start individual therapy and feel less depressed 3. Behavioral Recommendations a. Referral for OP individual therapy b. Contact [facility] program if needed for walk-in appointments [...] AM EDT): - Pt was following with [facility] neurology, last visit in September 2022, [...] PM EDT): - Pt is following with [facility] neurology, last visit in September 2022, [...] PM EDT): - Pt is following with [facility] neurology, last visit in September 2022, [...] PM EST): - Pt is following with [facility] neurology, last seen on 04/01/22; - [...] 6:00 AM EDT): -Pt missed appt w/ Financial Rep at [facility], and was going to contact another lang path therapist of her choice. - continue working on building healthy relationship with food and eating Assessment & Plan (07/21/2022 10:39 AM EST): Pt missed appt w/ Financial Rep at [facility]. -Pt states she has contact for another lang path therapist; she will contact new lang path therapist. Allergic rhinitis 12/28/2013 Assessment & Plan (04/06/2024 [...] Description 08/08/2024 3:45 PM EST Office Visit [address] [address] Maryanne Crockett MD Mixed stress and urge urinary incontinence (Primary Dx); Moderate episode of recurrent major depressive disorder (CMS/HCC); Positive YORDAN (antinuclear antibody); Acute cough; Influenza A; Dietary counseling; Exercise counseling; Class 1 obesity due to excess calories without serious comorbidity with body mass index (BMI) of 30.0 to 30.9 in adult; Class 1 obesity 08/04/[address] [address] Earnestine Santiago MA chart prep 07/08/[address] [address] Maryanne Crockett MD 07/08/[address] [address] Maryanne Crockett MD 07/07/[address] [address] Maryanne Crockett MD Urgent Care-Status Check 07/06/[address] [address] Maryanne Crockett MD Nurse Triage 06/09/[address] [address] [place] porcelain enameling supervisor Orders 06/08/2024 2:45 PM EST Office Visit [address] [address] Yazmin Valdes FNP Mixed stress and urge urinary incontinence (Primary Dx); Acute low back pain without sciatica, unspecified back pain laterality 06/08/2024 Orders Only [address] [address] Yazmin Valdes FNP 06/08/[address] [address] Maryanne Crockett MD Nurse Triage from Last [...] Negative Negative, Indeterminate QC Media Lot # [id number] Lot# Expiration Date Swab 08/08/2024 4:42 PM EST Maryanne Crockett MD POINT OF CARE TEST ENTER/EDIT OR DERABLES Final Result * (ABNORMAL) POCT Influenza A manually resulted (08/08/2024 4:41 PM EST) Rapid Influenza A Ag Positive( A) Negative, Indeterminate QC Media Lot # [id number] Lot# Expiration Date Swab Nasopharyngeal structure / Unknown 08/08/2024 4:41 PM EST us Maryanne Crockett MD POINT OF CARE TEST ENTER/EDIT OR DERABLES Final Result * POCT Rapid COVID Ag (08/08/2024 4:40 PM EST) Rapid COVID Ag Negative QC Media Lot # [id number] Lot# Expiration Date [id number] Swab 08/08/2024 4:40 PM EST us Maryanne Crockett MD POINT OF CARE TEST ENTER/EDIT OR DERABLES Final Result * US BLADDER (06/14/2024 3:41 PM EST) Anatomical Region Laterality Modality Abdomen Ultrasound 06/14/2024 3:41 PM EST Narrative 06/26/2024 9:02 AM EST ?[address] ?[place] [address] ? Ultrasound Report ? Signed ? Patient: Selene Gray I ?MR#: [id number] ?? [id number] ? : 1995 ?Acct:[id number] ? Age/Sex: 29 / F ?ADM Date: 06/14/24 ? Loc: HO.US ? Attending Dr: Valeria Mcdaniels MD ? Ordering Physician: Valeria Mcfarlane MD ?? Date of Service: 06/14/24 ?? Procedure(s): US bladder ?? Accession Number(s): [id number] ? cc: Valeria Mcfarlane MD ? EXAMINATION: [...] DD/ 1541 ? TD/TT: 12/17/24 1545 ? Electric Needle Specialist: ? Procedure Note Donotuseinterpreter, Image - 06/26/[address] [address] Ultrasound Report Signed Patient: Selene Gray IMR#: [id number] : 1995Acct:[id number] Age/Sex: 29 / FADM Date: 06/14/24 Loc: HO.US Attending Dr: Valeria Mcdaniels MD Ordering Physician: Valeria Mcfarlane MD Date of Service: 06/14/24 Procedure(s): US bladder Accession Number(s): [id number] cc: Valeria Mcfarlane MD EXAMINATION: US PELVIS [...] 06/26/24 0859 DD/ 1541 TD/TT: 06/14/24 1545 Electric Needle Specialist: us Valeria Mcdaniels MD IMG US PROCEDURES [...] Media Lot # [id number] Lot# Expiration Date [id number] Urine 06/08/2024 3:39 PM EST [facility] POINT OF [facility]ARE [facility] ENTER/EDIT ORDERABLES Final Result * Cancelled Urine (06/08/2024 12:22 PM EST) Cancelled Urine SEE NOTE [facility] Comment:THE FOLLOWING TESTS WERE CANCELLED: UA CLEAN CATCHREASON: NO SPECIMAN RECIEVED 06/08/2024 12:2 2 PM EST 06/09/2024 12:24 PM EST Yazminpaulino Grayarpit [facility] HISTORICAL/NON ORDERABLE LABS Final Result Performing Organization Address [facility] Co de Phone Number [facility] [address] [place] [phone] * Urine Culture Routine (06/08/2024 12:00 AM EST) Urine Urine specimen obtained by clean catch procedure / Unknown 06/08/2024 06/08/2024 Comment:CC Narrative [facility] - 06/10/2024 11:34 AM EST Urine Culture No growth. Specimen Source: [facility]rine clean [facility] - GENERAL ORD ERABLES Final Result Performing Organization Address City/[facility] Co de Phone Number [facility] [address] [place] [phone] * Lipid Panel, Standard (01/16/2024 10:32 AM EDT) Triglycerides 59 <150 mg/dL [facility] Comment:Desirable Triglyceri de: less than 150 mg/dLBorderline High Triglyceride 150-199 mg/dLHigh Triglyceride: 200-499 mg/dLVery High Triglyceride: greater than or equal to 5OO mg/dL Cholesterol 158 <200 mg/dL [facility] Comment:Desirable Cholestero l: less than 200 mg/dLBorderline High Cholesterol: 200-239 mg/dLHigh Cholesterol: greater than 239 mg/dL LDL Cholesterol Calculated 99 <100 mg/dL [facility] Comment:Desirable LDL: less than 100 mg/dLNear Optimal/Above Optimal LDL: 110- 129 mg/dLBorderline High LDL: 130-159 mg/dLHigh LDL: 160-189 mg/dLVery High LDL: greater than or equal to 190 mg/dL HDL Cholesterol 48 >40 mg/dL [facility] Comment:Desirable HDL: great er than 40 mg/dL Note: This HDL assay may give artificially low results in patients with liver disease. Blood Venous blood specimen / Unknown 01/16/2024 10:32 AM EDT 01/16/2024 10:32 AM EDT us Hortencia Olsen DO LAB BLOOD ORDERABLES Final R esult Performing Organization Address [facility] Co de Phone Number [facility] [address] [place] [phone] * Hepatitis C Antibody Reflex (02/19/2023 11:51 AM EDT) Hepatitis C Antibody Nonreactive Nonreactive [facility] Comment:Antibodies to HCV no t detected; does not exclude early acuteHCV infection. 02/19/2023 11:5 1 AM EDT 02/19/2023 1:41 PM EDT us Maryanne Crockett MD LAB BLOOD ORDERABLES Final Resul t Performing Organization Address [facility] Co de Phone Number [facility] [address] [place] [phone] * HIV Ab/Ag ([facility]) (02/19/2023 11:51 AM EDT) HIV AB/AG Nonreactive Nonreactive [facility] Comment:HIV-1 p24 Ag and/or HIV-1/HIV-2 Ab not detected.A test result that is nonreactive does not exclude thepossibility of exposure to or infection with HIV-1 and/orHIV-2. Nonreactive results in this assay for individualswith prior exposure to HIV-1 and/or HIV-2 may be due toantigen and antibody levels that are below the limit ofdetection of this assay.The [employer] Freelance Director HIV Ag/Ab Combo assay result andsupplemental assay results should be interpreted inconjunction with the patient's clinical presentation,history and other laboratory results. If the results areinconsistent with clinical evidence, additional testing issuggested to confirm the result. 02/19/2023 11:5 1 AM EDT 02/19/2023 1:41 PM EDT us Maryanne Crockett MD LAB BLOOD ORDERABLES Final Resul t [facility] [address] [place] [phone] * HPV mRNA E6/E7 w/Reflex to HPV Genotypes 16, 18/45 (02/02/2023 11:17 AM EDT) HPV nRNA E6/E7 Not Detected Not Detected [facility] Comment:Methodology: Transcr iption-Mediated AmplificationThis assay detects E6/E7 viral messenger RNA (mRNA) from 14high-risk HPV types (16,18,31,33,35,39,45,51,52,56,58,59,66,68).Cervical sources are required for HPV testing.If a vaginal source from a patient who has had atotal hysterectomy with removal of cervix wassubmitted, please contact the testing laboratoryfor alternative testing options.For additional information, please refer tohttp://education.[employer]/faq/NFV602a9(This link if provided for information/educational purposes only.)THIS TEST WAS PERFORMED AT:[facility] [facility] [place] [phone] RABAGO MD HPV mRNA E6/E7 [facility] HPV 16 RNA [facility] HPV 18/45 RNA [facility] 02/02/2023 11:1 7 AM EDT 02/03/2023 10:40 AM EDT us Prabhjot Echols CNM LAB CYTOLOGY ORDERABLES F inal Result [facility] [address] [place] [phone] * Pap Smear (02/02/2023 11:17 AM EDT) 02/02/2023 11:1 7 AM EDT 02/03/2023 10:40 AM EDT Narrative [facility] - 02/19/2023 8:15 AM EDT ----- ------- Name: Selene Gray I ?Age/Sex: 27/F ? : 1995 Unit#: [id number] ?? Attend Dr: PRABHJOT ECHOLS CNM ?Re02/02/23 ?Status: DEP REF ? Location: HO.HHCLNP ? Disch: ? ----- ------- SPEC : [id number] ?RECD: 02/03/23 ? STATUS: ??SOUT ? REQ NUM: [id number] ? AICHA: 02/02/23 ? SUBM DR: PRABHJOT [...] 66, 68) ?? HPV testing performed by [facility], [place], [place]. ??See reference laboratory ?? pion of the EMR for entire report. ?Clinical Information LMP: Unknown date Previous PAP test: Unknown date, LSIL HPV+ ? Material Received ?? ThinPrep-Cervical ----- ------- Signed (signature on file) SAMAN Mayes ([facility]) 02/19/23 0815 ? ----- ------- ? END OF REPORT ? us Prabhjot Echols [facility] CYTOLOGY ORDERABLES F inal Result [facility] [address] [place] [address] [phone] from Last 3 Months or Most Recently Relevant to Health Maintenance Insurance Care Teams [employer]spring Former [employer] Relationship Specialty Start Date End Date Maryanne Crockett MD [address] [place] [phone] PCP - General Family Medicine 06/29/18
--- OUTSIDE RECORDS SUMMARY | 2024-08-19 16:19 | XMS_ITS | Encounter Summary ---
Author Organization [employer] Address [address] [facility] 7t [place] [address] Care Team Providers Care Personal Driver Name Role Phone Maryanne Crockett MD Primary Care Provider [phone] Encounter Details Date Type Department Care Team ([facility] st Contact Info) Description 06/19/2023 Orders Only [facility] MEDICINE [address] [place], [place] [phone] Maryanne Crockett MD [address] [place], [place] [phone] Social History Tobacco Use Types Packs/Day Years [...] documented as of this encounter Care Teams Personal Driver Relationship Specialty Start Date End Date Maryanne Crockett MD [address] [place] [phone] PCP - General Family Medicine 06/29/18 documented as of this encounter
--- OUTSIDE RECORDS SUMMARY | 2024-08-19 16:19 | XMS_ITS | Encounter Summary ---
Author Organization [employer] Address [address] [place] [address] Care Team Providers Care Photogrammetric Technician Name Role Phone Maryanne Crockett MD Primary Care Provider [phone] Encounter Details Date Type Department Care Team (Late st Contact Info) Description 02/04/2023 Orders Only [facility] MEDICINE [address] [place], [place] [phone] [place] [address] Social History Tobacco Use Types Packs/Day Years [...] MD IN CLINIC/BEDSIDE ORDERABLES Fin al Result [facility] [address] [place] [phone] [phone] documented in this encounter Visit Diagnoses Not on filedocumented in this encounter Care Teams Photogrammetric Technician Relationship Specialty Start Date End Date Maryanne Crockett MD [address] [place] [address] PCP - General Family Medicine 06/29/18 documented as of this encounter
--- OUTSIDE RECORDS SUMMARY | 2024-08-19 16:19 | XMS_ITS | Encounter Summary ---
Author Organization [employer] Address [address] [place] [address] [address] [place] [address] Care Team Providers Care Information Assurance Specialist Name Role Phone Maryanne Crockett MD Primary Care Provider [phone] Reason for Visit * Reason Onset Date Comments Triage 08/14/2022 Encounter Details Date Type Department Care Team ([facility] st Contact Info) Description 08/14/2022 Telephone [facility] MED[facility]INE [address] [place], [place] [phone] Maryanne Crockett MD [address] [place], [place] [phone] Triage Social History Tobacco Use Types Packs/Day [...] the past 12 months, has t he [employer], gas, oil or water [employer] threatened to shut off services in your [...] for this pain. Pt also advised of [facility] tomorrow if decides wants to be seen. [...] caller accepted this outcome Please contact at [phone] documented in this encounter Plan of Treatment Not on file documented as of this encounter Visit Diagnoses Not on filedocumented in this encounter Care Teams Information Assurance Specialist Relationship Specialty Start Date End Date Maryanne Crockett MD [address] [place] [address] PCP - General Family Medicine 06/29/18 documented as of this encounter
--- OUTSIDE RECORDS SUMMARY | 2024-08-19 16:19 | XMS_ITS | Encounter Summary ---
Author Organization [employer] Address [address] [place] [address] 7 [place] [address] Care Team Providers Care Aircraft Fuselage Framer Name Role Phone Maryanne Crockett MD Primary Care Provider [phone] Encounter Details Date Type Department Care Team (Late st Contact Info) Description 08/08/2024 3:45 PM EST Office Visit [facility] MEDICINE [address] [place], [place] [phone] Maryanne Crockett MD [address] [place], [place] [phone] Mixed stress and urge urinary incontinence (Primary [...] last encounter was 03/29/2024. Referred to another special police officer. Interval history: Seen by special police officer at [facility] on 04/25/24. Recommended to try meds for [...] also notes she was told by her special police officer she did not need anymore testing [...] Indeterminate Final QC Media Lot # 08/08/2024 [id number] Final Lot# Expiration Date 08/08/2024 [id number] Final Rapid Influenza B Ag 08/08/2024 Negative Negative, Indeterminate Final QC Media Lot # 08/08/2024 [id number] Final Lot# Expiration Date 08/08/2024 [id number] Final Rapid COVID Ag 08/08/2024 Negative Final QC Media Lot # 08/08/2024 [id number] Final Lot# Expiration Date 08/08/2024 5,[id number] Final Assessment/Plan Problem List Items Addressed This [...] 02/19/23 YORDAN titer 1:320 - seen by special police officer [facility], and suggested that it was false positive [...] 02/19/23 YORDAN titer 1:320 - seen by special police officer [facility], and suggested that it was false positive [...] Negative Negative, Indeterminate QC Media Lot # [id number] Lot# Expiration Date Swab 08/08/2024 4:42 PM EST us Maryanne Crockett MD POINT OF CARE TEST ENTER/EDIT OR DERABLES Final Result * (ABNORMAL) POCT Influenza A manually resulted (08/08/2024 4:41 PM EST) Rapid Influenza A Ag Positive( A) Negative, Indeterminate QC Media Lot # [id number] Lot# Expiration Date Swab Nasopharyngeal structure / Unknown 08/08/2024 4:41 PM EST Maryanne Crockett MD POINT OF CARE TEST ENTER/EDIT OR DERABLES Final Result * POCT Rapid COVID Ag (08/08/2024 4:40 PM EST) Rapid COVID Ag Negative QC Media Lot # [id number] Lot# Expiration Date [id number] Swab 08/08/2024 4:40 PM EST Maryanne Crockett [...] documented as of this encounter Care Teams Aircraft Fuselage Framer Relationship Specialty Start Date End Date Maryanne Crockett MD [address] [place] [address] PCP - General Family Medicine 06/29/18 documented as of this encounter
== END 2024-08-19 15:01 | disposition home or self-care (01) ==
LOC: HO.LAB 15:00
PROVIDERS: PCP Family Medicine; Visit Provider Urology
DX: R32 Unspecified urinary incontinence (principal); N39.0 Urinary tract infection, site not specified
CPT/HCPCS: 51798; 81003

== ENCOUNTER 2024-09-08 13:42 | Outpatient (AMB) | payer BC, SELFPAY ==
--- NOTE | 2024-09-08 13:09 | MHC.OFFVIS ---
Intake Visit Reasons: Cystoscopy Intake Note: Patient is present for Cystoscopy Urology Medication:NONE Antibiotic Allergy:PENICILLIN,AMOXICILLIN Blood Thinner:NONE Lot:[id number] Exp:05/02/27 Document Imaging Manager Required: No Allergies amoxicillin [Amoxicillin] Allergy (Intermediate, Verified 09/08/24 13:45) SEVERE FACIAL SWELLING Penicillins Allergy (Intermediate, Verified 09/08/24 13:45) SEVERE FACIAL SWELLING HPI Comments Details: 09/08/24--here for cysto. Cystoscopy findings: no mesh material noted in bladder or urethra, WNL, no suspicious bladder lesions visualized. 29-year-old female presenting with urinary incontinence. The condition has persisted since her sling procedure in 2019, indicating continued leakage without significant change. Bladder prolapse has not been observed. Urinary Symptoms Review - Persistent urinary incontinence since sling procedure 08/19/24--Selene is a 29-year-old female who is here for evaluation for urinary incontinence. Patient has had 2 deliveries 1st 1 was vaginal and the 2nd child via in 2018. She states she a sling procedure in [address] Hugo at [facility] she had improvement in bladder control for about 3-4 months. She states that she does Kegel exercises. The urine leakage has progressively worsened she has leakage associated sexual activity, complains urgency and sometimes feels that she has difficulty emptying bladder. She had a bladder ultrasound bladder capacity 320 mL postvoid residual. Urinalysis today notes blood however the patient is menses. I have discussed evaluation with cystoscopy due to sling and we will check a ultrasound. Urinary symptoms are mixed including complaints of urgency, leakage of urine on associated with urgency or stress and intermittent hesitancy. 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 Reproductive History Menstrual Age of Menarche: 9 Review of Systems Const All systems reviewed & are unremarkable except as noted in HPI and below Reports no additional complaints Eyes Reports no additional complaints ENT Reports no additional complaints Card Reports no additional complaints Resp Reports no additional complaints GI Reports no additional complaints Reports as per HPI Musc Reports no additional complaints Skin/Breast Reports system reviewed and no additional complaints, except as documented Neuro Reports no additional complaints Psych Reports no additional complaints Endo Reports no additional complaints Robinson/Lymph Reports no additional complaints Aller/Immun Reports no additional complaints Office Procedures Cystoscopy Consent Discussed risk and benefit or proposed procedure with the patient. Information consent for procedure given to the patient. Discussed technical aspects, risks, benefits and alternatives in full. Addressed all of the patient's questions and concerns regarding the procedure. The patient demonstrated knowledge and understanding. They wish to proceed with this procedure. Preparation The patient was prepped in the usual manner. A regional climate change analyst was present and in the room. Genitalia was prepped with betadine solution in a sterile manner. Lidocaine Jelly 2% was placed into the urethra and 16Fr flexible Olympus cystoscope was inserted into the meatus after adequate lubrication. Procedure Time out per protocol performed. Bladder Inspection Speculum used as indicated for adequate visualization of urethra, the flexible cystoscope is passed transurethrally: Bladder Inspection: The bladder was inspected in its entirety with utilization retroflexion displaying: Tumor(s): no suspicious bladder lesions visualized Trabeculation: NA Mucosal Erthema: NA Orifices: normal shape and position Urethra: normal Cystoscopy findings: no mesh material noted in bladder or urethra, WNL, no suspicious bladder lesions visualized [id number] DISPOSABLE SCOPE URO-G FLEXIBLE SCOPE Procedure code (CPT) selection complete Office Meds lidocaine HCl 2 % mucosal jelly in applicator Performing Provider: Shelbie Moura MD [facility] Administered by: Lulu Skinner RN on 09/08/24 14:03 Dose Route Admin Location Dispensed Lot Number Expiration Date ND Personal Care Assistant 10 mL intra-urethral 10 mL ciprofloxacin HCl 500 mg tablet Performing Provider: Shelbie Moura MD Performing [facility] Administered by: Lulu Skinner RN on 09/08/24 14:03 Dose Route Admin Location Dispensed Lot Number Expiration Date NDC Personal Care Assistant 500 mg PO 1 tab phenazopyridine 200 mg tablet Performing Provider: Shelbie Moura MD Performing Location[facility] Administered by: Lulu Skinner RN on 09/08/24 14:03 Dose Route Admin Location Dispensed Lot Number Expiration Date NDC Personal Care Assistant 200 mg PO 1 tab Results AMB Urinalysis, Automated UA Leukoctes 0 Eusebia/uL Last Edit by Crystal Morley on 09/08/24 13:54 UA Nitrite Negative Last Edit by Crystal Morley on 09/08/24 13:54 UA Urobilinogen 3.5 mg/dL Last Edit by Crystal Morley on 09/08/24 13:54 UA Protein 0 mg/dL Last Edit by Crystal Morley on 09/08/24 13:54 UA pH 6.0 Last Edit by Crystal Morley on 09/08/24 13:54 UA Blood 0 Nikita/uL Last Edit by Crystal Morley on 09/08/24 13:54 UA Specific Anderson 1.015 Last Edit by Crystal Morley on 09/08/24 13:54 UA Ketone Negative Last Edit by Crystal Morley on 09/08/24 13:54 UA Bilirubin 0 mg/dL Last Edit by Crystal Morley on 09/08/24 13:54 UA Glucose 0 mg/dL Last Edit by Crystal Morley on 09/08/24 13:54 Results Reviewed Results Reviewed: Laboratory Last Values Urine pH (Auto) 6.0 09/08/24 13:53 Specific Anderson (Auto) 1.015 09/08/24 13:53 Urine Protein (Auto) 0 mg/dL 09/08/24 13:53 Glucose (UA)(Auto) 0 mg/dL 09/08/24 13:53 Urine Ketones (Auto) Negative 09/08/24 13:53 Urine Blood (Auto) 0 Nikita/uL 09/08/24 13:53 Urine Nitrite (Auto) Negative 09/08/24 13:53 Urine Bilirubin (Auto) 0 mg/dL 09/08/24 13:53 Urine Urobilinogen (Auto) 3.5 mg/dL 09/08/24 13:53 Leukocyte Esterase (Auto) 0 Eusebia/uL 09/08/24 13:53 Assessment & Plan Assessment & Plan (1) Mixed stress and urge urinary incontinence: Code(s): N39.46 - Mixed incontinence Category: Medical (2) Urinary hesitancy: Code(s): R39.11 - Hesitancy of micturition Category: Medical (3) History of midurethral sling procedure: Code(s): Z98.890 - Other specified postprocedural states Category: Surgical Plan Schedule Urodynamics Orders: Orders AMB Cystoscopy 09/08/24 N39.46 - Mixed incontinence, R39.11 - Hesitancy of micturition, Z98.890 - Other specified postprocedural states AMB Urinalysis Automated 09/08/24 Z13.9 - Encounter for screening, unspecified Patient Instructions: The patient had an opportunity to ask questions regarding treatment plan. The patient expressed understanding and agreement with the above treatment plan. The patient is aware they should contact our office by phone for worsening of their current condition or the appearance of new symptoms. Compliance is encouraged with any medications and followup testing that is ordered. It is a privilege to be allowed the opportunity to participate in the urologic care of your patient. If you have any questions or concerns regarding treatment for the above conditions please do not hesitate to contact me. The office telephone contact is [phone]. This note is constructed in part using voice recognition software. While every effort has been made to ensure accuracy splitter hand errors may have been included. Yours sincerely, Shelbie Moura MD Scribe Plan - Not visible on output: Patient was informed and verbally consented to the use of an ambient scribe for clinic note documentation during this visit. Coding Level of Care Code Procedure Only Diagnoses Mixed stress and urge urinary incontinence N39.46 Urinary hesitancy R39.11 History of midurethral sling procedure Z98.890 CPT Codes Cystoscopy - CPT: [id number] ([id number])
== END 2024-09-08 14:31 | disposition home or self-care (01) ==
LOC: HO.HUSH 13:42
PROVIDERS: PCP Family Medicine; Visit Provider Urology
DX: N39.46 Mixed incontinence (principal); R39.11 Hesitancy of micturition; Z98.890 Other specified postprocedural states; Z13.9 Encounter for screening, unspecified
CPT/HCPCS: 52000

== ENCOUNTER → 2024-09-08 13:42 | Outpatient (BNVA) | payer BC, SELFPAY | PROVIDERS: PCP Family Medicine; Visit Provider Urology | DX: N39.46 Mixed incontinence (principal); R39.11 Hesitancy of micturition; Z98.890 Other specified postprocedural states | CPT/HCPCS: 52000; 81003 ==

== ENCOUNTER 2024-09-16 13:35 | Outpatient (REF) | payer BC, SELFPAY ==
--- NOTE | ~2024-09-16 | US_ITS ---
CLINICAL HISTORY: N39.46 - Mixed incontinence US Renal Comparison: 03/12/2023 Findings: Right kidney normal size and echotexture, 11.5 cm length. No hydronephrosis. Left kidney normal size and echotexture, 10.9 cm length. Mild fullness of the left renal pelvis. Normal color Doppler IMPRESSION: Mild nonspecific fullness of the left renal pelvis, otherwise normal. This document has been electronically signed by: Yonatan Beckman MD on 09/17/2024 14:20:56
--- OUTSIDE RECORDS SUMMARY | 2024-09-16 15:53 | XMS_ITS | Encounter Summary ---
Author Organization [employer] Address [address] [place] [address] 7 [place] [address] Care Team Providers Care Advanced Practice Provider Name Role Phone Maryanne Crockett MD Primary Care Provider [phone] Reason for Visit * Reason Onset Date Comments Med Refill 07/08/2024 Encounter Details Date Type Department Care Team ([facility] st Contact Info) Description 07/08/2024 Refill [facility] MED[facility]INE [address] [place], [place] [phone] Maryanne Crockett MD [address] [place], [place] [phone] Social History Tobacco Use Types Packs/Day Years [...] documented as of this encounter Care Teams Advanced Practice Provider Relationship Specialty Start Date End Date Maryanne Crockett MD [address] [place] [address] PCP - General Family Medicine 06/29/18 documented as of this encounter
--- OUTSIDE RECORDS SUMMARY | 2024-09-16 15:53 | XMS_ITS | Encounter Summary ---
Author Organization [employer] Address [address] [place] [address] Care Team Providers Care Instructor Ground Services Name Role Phone Maryanne Crockett MD Primary Care Provider [phone] Encounter Details Date Type Department Care Team (Late st Contact Info) Description 02/04/2023 Orders Only [facility] MED[facility]INE [address] [place], [place] [phone] [place] [address] Social History Tobacco Use Types Packs/Day Years [...] MD IN CLINIC/BEDSIDE ORDERABLES Fin al Result [facility] [address] [place] [address] [phone] documented in this encounter Visit Diagnoses Not on filedocumented in this encounter Care Teams Instructor Ground Services Relationship Specialty Start Date End Date Maryanne Crockett MD [address] [place] [address] PCP - General Family Medicine 06/29/18 documented as of this encounter
--- OUTSIDE RECORDS SUMMARY | 2024-09-16 15:53 | XMS_ITS | Encounter Summary ---
Author Organization [employer] Address [address] [place] [address] 7 [place] [address] Care Team Providers Care Business Librarian Name Role Phone Maryanne Crockett MD Primary Care Provider [phone] Reason for Visit * Reason Onset Date Comments Letter for School/Work 04/24/2023 Encounter Details Date Type Department Care Team ([facility] st Contact Info) Description 04/24/2023 Telephone [facility] [address] [place], [place] [phone] Maryanne Crockett MD [address] [place], [place] [phone] Letter for School/Work Social History Tobacco Use [...] EDT Tc from patient requesting statues of [facility] paperwork states place of employment faxed documents over any questions please call [phone] documented in this encounter Plan of Treatment Not on file documented as of this encounter Visit Diagnoses Not on filedocumented in this encounter Additional Health Concerns Assessment Noted Time PHQ-9 Depression Total Score: 12 023 9:16 AM EDT documented as of this encounter Care Teams Business Librarian Relationship Specialty Start Date End Date Maryanne Crockett MD [address] [place] [address] PCP - General Family Medicine 06/29/18 documented as of this encounter
--- OUTSIDE RECORDS SUMMARY | 2024-09-16 15:53 | XMS_ITS | Encounter Summary ---
Author Organization [employer] Address [address] [place] [address] 7 [place] [address] Care Team Providers Care Ear Muff Assembler Name Role Phone Maryanne Crockett MD Primary Care Provider [phone] Reason for Visit * Reason Onset Date Comments Nurse Triage 06/18/2023 Encounter Details Date Type Department Care Team ([facility] st Contact Info) Description 06/18/2023 Telephone [facility]INE 230 [place], [place] [phone] Maryanne Crockett MD [address] [place], [place] [phone] Nurse Triage Social History Tobacco Use Types [...] for the past 2 Days Patient speaks Indonesian. Advised triage nurse will call patient back. documented in this encounter Plan of Treatment Not on file documented as of this encounter Visit Diagnoses Not on filedocumented in this encounter Additional Health Concerns Assessment Noted Time PHQ-9 Depression Total Score: 12 023 9:16 AM EDT documented as of this encounter Care Teams Ear Muff Assembler Relationship Specialty Start Date End Date Maryanne Crockett MD [address] [place] [address] PCP - General Family Medicine 06/29/18 documented as of this encounter
--- OUTSIDE RECORDS SUMMARY | 2024-09-16 15:53 | XMS_ITS | Encounter Summary ---
Author Organization [employer] Address [address] [facility] 7t [place] [address] Care Team Providers Care Catalogue And Special Products Manager Name Role Phone Maryanne Crockett MD Primary Care Provider [phone] Encounter Details Date Type Department Care Team ([facility] st Contact Info) Description 06/19/2023 Orders Only [facility] MEDICINE [address] [place], [place] [phone] Maryanne Crockett MD 230 [place], [place] [phone] Social History Tobacco Use Types Packs/Day Years [...] documented as of this encounter Care Teams Catalogue And Special Products Manager Relationship Specialty Start Date End Date Maryanne Crockett MD [address] [place] [address] PCP - General Family Medicine 06/29/18 documented as of this encounter
--- OUTSIDE RECORDS SUMMARY | 2024-09-16 15:53 | XMS_ITS | Encounter Summary ---
Author Organization [employer] Address [address] [place] [address] 7 [place] [address] Care Team Providers Care Creel Operator Name Role Phone Maryanne rCockett MD Primary Care Provider [phone] Encounter Details Date Type Department Care Team (Late st Contact Info) Description 02/23/2023 Orders Only [facility] MEDICINE 230 [place] [address] Maryanne Crockett MD [address] [place] [address] Upper back pain (Primary Dx); Neck pain [...] documented as of this encounter Care Teams Creel Operator Relationship Specialty Start Date End Date Maryanne Crockett MD [address] [place] [address] PCP - General Family Medicine 06/29/18 documented as of this encounter
--- OUTSIDE RECORDS SUMMARY | 2024-09-16 15:54 | XMS_ITS | Encounter Summary ---
Author Organization [employer] Address [address] [place] [address] 7t [place] [address] Care Team Providers Care Spin Table Operator Name Role Phone Maryanne Crockett MD Primary Care Provider [phone] Encounter Details Date Type Department Care Team (Late st Contact Info) Description 02/24/2023 Orders Only [facility] MED[facility]INE [address] [place], [place] [phone] Maryanne Crockett MD [address] [place], [place] [phone] Positive YORDAN (antinuclear antibody) (Primary Dx); Arthralgia, [...] documented as of this encounter Care Teams Spin Table Operator Relationship Specialty Start Date End Date Maryanne Crockett MD [address] [place] [address] PCP - General Family Medicine 06/29/18 documented as of this encounter
--- OUTSIDE RECORDS SUMMARY | 2024-09-16 15:54 | XMS_ITS | Encounter Summary ---
Author Organization [employer] Address [address] [place] [address] 7t [place] [address] Care Team Providers Care Technical Support Representative Name Role Phone Maryanne Crockett MD Primary Care Provider [phone] Encounter Details Date Type Department Care Team ([facility] st Contact Info) Description 09/14/2024 Orders Only [facility]INE 230 [place], [place] [phone] Maryanne Crockett MD 230 [place], [place] [phone] Social History Tobacco Use Types Packs/Day Years [...] AM EDT documented as of this encounter Progress Notes * Maryanne Crockett MD - 09/14/2024 5:01 PM EDT Increased escitalopram dose from 10 mg to 20 mg daily. Patient is aware. documented in this encounter Plan of Treatment Not on file documented as of this encounter Visit Diagnoses Not on filedocumented in this encounter Additional Health Concerns Assessment Noted Time PHQ-9 Depression Total Score: 5 08/11/19 25 9:30 AM EST documented as of this encounter Care Teams Technical Support Representative Relationship Specialty Start Date End Date Maryanne Crockett MD [address] [place] [address] PCP - General Family Medicine 06/29/18 documented as of this encounter
--- OUTSIDE RECORDS SUMMARY | 2024-09-16 15:54 | XMS_ITS | Clinical Summary ---
Author Organization [employer] Address [address] [place] [address] [address] [place] [address] Care Team Providers Care Soaker Helper Name Role Phone Maryanne Crockett MD Primary Care Provider [phone] Allergies Active Allergy Reactions Criticality Noted Date [...] tablet 3 03/29/20 24 Active escitalopram (Lexapro) 20 MG tablet TAKE 1 TABLET BY MOUTH EVERY MORNING 90 tablet 1 09/15/19 25 Active escitalopram (Lexapro) 10 MG tablet TAKE 1 TABLET BY MOUTH EVERY MORNING 30 tablet 11 07/08/19 25 025 Discontinued(Re order (will not trigger notification to Pharmacy)) Active Problems Problem Noted Date Diagnosed Date [...] 02/19/23 YORDAN titer 1:320 - seen by mental health social worker [facility], and suggested that it was false positive [...] 02/19/23 YORDAN titer 1:320 - seen by mental health social worker, and suggested that it was false positive [...] tried physical therapy - upcoming appointment with mental health social worker Assessment & Plan (01/27/2024 2:29 PM EDT): [...] stretching exercises -referred to PT -advised contact C if sx change or worsen Class 1 [...] regulate emotions. Selene reported she called the [facility] program as recommended during our first session. She has upcoming appointment with [facility] for OP individual therapy on 05/28. [...] to change PLAN: 1. Follow up with [facility] [place]: Not recommended for follow-up 2. Patient goal [...] cope with emotions. Shared information for the [facility] program with [facility] for walk-in appointments and urgent care if needed. At this time Selene Gray meets criteria for Visit Diagnoses: Problem List Items Addressed This Visit Other Moderate episode of recurrent major depressive disorder (CMS/HCC) Anxiety Work-related stress Patient ready to address current needs Yes Strengths include readiness and motivation to change PLAN: 1. Follow up with [facility] [place]: Recommended for follow-up: Scheduled BE in a month 2. Patient goal is to start individual therapy and feel less depressed 3. Behavioral Recommendations a. Referral for OP individual therapy b. Contact [facility] program if needed for walk-in appointments or [...] regulate emotions. Selene reported she called the [facility] program as recommended during our first session. She has upcoming appointment with [facility] for OP individual therapy on 05/28. [...] to change PLAN: 1. Follow up with [facility] [place]: Not recommended for follow-up 2. Patient goal [...] Shared information for the [facility] program with [facility] for walk-in appointments and urgent care if needed. At this time Selene Gray meets criteria for Visit Diagnoses: Problem List Items Addressed This Visit Other Moderate episode of recurrent major depressive disorder (CMS/HCC) Anxiety Work-related stress Patient ready to address current needs Yes Strengths include readiness and motivation to change PLAN: 1. Follow up with [facility] [place]: Recommended for follow-up: Scheduled BE in a month 2. Patient goal is to start individual therapy and feel less depressed 3. Behavioral Recommendations a. Referral for OP individual therapy b. Contact [facility] program if needed for walk-in appointments or [...] antibody and decreased complement - evaluated by [facility]ology in Jan 2023 - referred to another , upcoming appointment with Dr. Alexander - possible fibromyalgia - continue staying physically active / exercising for both mental and physical health Assessment & Plan (01/27/2024 2:32 PM EDT): - evaluated for rheumatological disorder: YORDAN titer 1:320 in Jan 2023; positive anti-ds DNA antibody and decreased complement - evaluated by [facility] rheumatology in Jan 2023 - refer to another rheumatology - possible fibromyalgia - continue staying physically active / exercising for both mental and physical health Assessment & Plan (02/19/2023 1:21 PM EDT): - evaluate for rheumatological disorder - possible fibromyalgia - consider referring to mental health social worker - continue cyclobenzaprine and APAP prn - [...] first session. She has upcoming appointment with [facility] for OP individual therapy on 05/28. [...] to change PLAN: 1. Follow up with [facility] [place]: Not recommended for follow-up 2. Patient goal [...] cope with emotions. Shared information for the [facility] program with [facility] for walk-in appointments and urgent care if needed. At this time Selene Gray meets criteria for Visit Diagnoses: Problem List Items Addressed This Visit Other Moderate episode of recurrent major depressive disorder (CMS/HCC) Anxiety Work-related stress Patient ready to address current needs Yes Strengths include readiness and motivation to change PLAN: 1. Follow up with [facility] [place]: Recommended for follow-up: Scheduled BE in a month 2. Patient goal is to start individual therapy and feel less depressed 3. Behavioral Recommendations a. Referral for OP individual therapy b. Contact [facility] program if needed for walk-in appointments or [...] AM EDT): - Pt was following with [facility], last visit in September 2022, safely [...] PM EDT): - Pt is following with [facility], last visit in September 2022, safely [...] PM EDT): - Pt is following with [facility], last visit in September 2022, safely [...] PM EST): - Pt is following with [facility], last seen on 04/01/22; - Currently [...] 6:00 AM EDT): -Pt missed appt w/ Gauge Maker Apprentice at [facility], and was going to contact another component assembler supervisor of her choice. - continue working on building healthy relationship with food and eating Assessment & Plan (07/21/2022 10:39 AM EST): Pt missed appt w/ Gauge Maker Apprentice at [facility]. -Pt states she has contact for another component assembler supervisor; she will contact new component assembler supervisor. Allergic rhinitis 12/28/2013 Assessment & Plan (04/06/2024 [...] Encounters Date Type Department Care Team Description 09/14/2024 Orders Only [facility] [place] [id number] Maryanne Crockett MD 08/08/2024 3:45 PM EST Office Visit [facility] Amber [facility] [address] Maryanne Crockett MD Mixed stress and urge urinary incontinence (Primary Dx); Moderate episode of recurrent major depressive disorder (CMS/HCC); Positive YORDAN (antinuclear antibody); Acute cough; Influenza A; Dietary counseling; Exercise counseling; Class 1 obesity due to excess calories without serious comorbidity with body mass index (BMI) of 30.0 to 30.9 in adult; Class 1 obesity 08/04/2024 Telephone [facility] [address] [place], [place] [phone] Earnestine Santiago MA chart prep 07/08/2024 Refill [facility] [address] [place], [place] [phone] Maryanne Crockett MD 07/08/2024 Refill [facility] [address] [place], [place] [phone] Maryanne Crockett MD 07/07/2024 Telephone [facility] [address] [place], [place] [phone] Maryanne Crockett MD Urgent Care-Status Check 07/06/2024 Telephone [facility] [address] [place], [place] [phone] Maryanne Crockett MD Nurse Triage from Last [...] Vaccines (1 of 2) 2012 COVID-19 Vaccine () 02/28/2024 07/21/2022, 05/31/2021, 05/02/2021 SDOH Screening 03/29/2025 03/29/2024 [...] Routine 08/08/2024 4:40 PM EST Acute cough LIPID PANEL, STANDARD Routine 01/16/2024 10:32 AM [...] Negative Negative, Indeterminate QC Media Lot # [id number] Lot# Expiration Date ,026 Swab 08/08/2024 4:42 PM EST Maryanne Crockett MD POINT OF CARE TEST ENTER/EDIT OR DERABLES Final Result * (ABNORMAL) POCT Influenza A manually resulted (08/08/2024 4:41 PM EST) Rapid Influenza A Ag Positive( A) Negative, Indeterminate QC Media Lot # [id number] Lot# Expiration Date Swab Nasopharyngeal structure / Unknown 08/08/2024 4:41 PM EST Maryanne Crockett MD POINT OF CARE TEST ENTER/EDIT OR DERABLES Final Result * POCT Rapid COVID Ag (08/08/2024 4:40 PM EST) Rapid COVID Ag Negative QC Media Lot # [id number] Lot# Expiration Date Swab 08/08/2024 4:40 PM EST Maryanne Crockett MD POINT OF CARE TEST ENTER/EDIT OR DERABLES Final Result * Lipid Panel, Standard (01/16/2024 10:32 AM EDT) Triglycerides 59 <150 mg/dL [facility] Comment:Desirable Triglyceri de: less than 150 mg/dLBorderline High Triglyceride 150-199 mg/dLHigh Triglyceride: 200-499 mg/dLVery High Triglyceride: greater than or equal to 5OO mg/dL Cholesterol 158 <200 mg/dL [facility] Comment:Desirable Cholestero l: less than 200 mg/dLBorderline High Cholesterol: 200-239 mg/dLHigh Cholesterol: greater than 239 mg/dL LDL Cholesterol Calculated 99 <100 mg/dL [facility] Comment:Desirable LDL: less than 100 mg/dLNear Optimal/Above Optimal LDL: 110- 129 mg/dLBorderline High LDL: 130-159 mg/dLHigh LDL: 160-189 mg/dLVery High LDL: greater than or equal to 190 mg/dL HDL Cholesterol 48 >40 mg/dL [facility] Comment:Desirable HDL: great er than 40 mg/dL Note: This HDL assay may give artificially low results in patients with liver disease. Blood Venous blood specimen / Unknown 01/16/2024 10:32 AM EDT 01/16/2024 10:32 AM EDT Hortencia Olsen DO LAB BLOOD ORDERABLES Final R esult Performing Organization Address [facility] Co de Phone Number [facility] [address] [place] [phone] * Hepatitis C Antibody Reflex (02/19/2023 11:51 AM EDT) Hepatitis C Antibody Nonreactive Nonreactive [facility] Comment:Antibodies to HCV no t detected; does not exclude early acuteHCV infection. 02/19/2023 11:5 1 AM EDT 02/19/2023 1:41 PM EDT us Maryanne Crockett MD LAB BLOOD ORDERABLES Final Resul t Performing Organization Address [facility] de Phone Number [facility] [address] [place] [phone] * HIV Ab/Ag (DE ALPA) (02/19/2023 11:51 AM EDT) HIV AB/AG Nonreactive Nonreactive [facility] Comment:HIV-1 p24 Ag and/or HIV-1/HIV-2 Ab not detected.A test result that is nonreactive does not exclude thepossibility of exposure to or infection with HIV-1 and/orHIV-2. Nonreactive results in this assay for individualswith prior exposure to HIV-1 and/or HIV-2 may be due toantigen and antibody levels that are below the limit ofdetection of this assay.The [employer] Vice President HIV Ag/Ab Combo assay result andsupplemental assay results should be interpreted inconjunction with the patient's clinical presentation,history and other laboratory results. If the results areinconsistent with clinical evidence, additional testing issuggested to confirm the result. 02/19/2023 11:5 1 AM EDT 02/19/2023 1:41 PM EDT us Maryanne Crockett MD LAB BLOOD ORDERABLES Final Resul t Performing Organization Address [facility] Co de Phone Number [facility] [address] [place] [phone] * HPV mRNA E6/E7 w/Reflex to HPV Genotypes 16, 18/45 (02/02/2023 11:17 AM EDT) HPV nRNA E6/E7 Not Detected Not Detected [facility] Comment:Methodology: Transcr iption-Mediated AmplificationThis assay detects E6/E7 viral messenger RNA (mRNA) from 14high-risk HPV types (16,18,31,33,35,39,45,51,52,56,58,59,66,68).Cervical sources are required for HPV testing.If a vaginal source from a patient who has had atotal hysterectomy with removal of cervix wassubmitted, please contact the testing laboratoryfor alternative testing options.For additional information, please refer tohttp://education.wikifolio/faq/DTM647n3(This link if provided for information/educational purposes only.)THIS TEST WAS PERFORMED AT:[address] [place] [phone] RABAGO MD HPV mRNA E6/E7 [facility] HPV 16 RNA [facility] HPV 18/45 RNA [facility] 02/02/2023 11:1 7 AM EDT 02/03/2023 10:40 AM EDT Prabhjot GRANT LAB CYTOLOGY ORDERABLES F inal Result [facility] [address] [place] [phone] * Pap Smear (02/02/2023 11:17 AM EDT) 02/02/2023 11:1 7 AM EDT 02/03/2023 10:40 AM EDT Narrative [facility] - 02/19/2023 8:15 AM EDT ----- ------- Name: MarinaSelene I ?Age/Sex: 27/F ? : 1995 Unit#: [id number] ?? Attend Dr: PRABHJOT ECHOLS CNM ?Re02/02/23 ?Status: DEP REF ? Location: HO.HHCLNP ? Disch: ? ----- ------- SPEC : [id number] ?RECD: 02/03/23-1040 ? STATUS: ??SOUT ? REQ NUM: [id number] ? AICHA: 02/02/23-1116 ? SUBM DR: PRABHJOT ECHOLS CNM ? ENTERED: ??02/04/23-1202 ?SP TYPE: Pap Smr ?OTHR : ? ORDERED: ??Pap Smear ? Interpretation ?? Satisfactory for evaluation. ?? Negative for intraepithelial lesion or malignancy. ?HPV mRNA E6/E7: ?NOT DETECTED ? This assay detects E6/E7 viral messenger RNA (mRNA) from 14 high-risk HPV types (16, 18, ?? 31, 33, 35, 39, 45, 51, 52, 56, 58, 59, 66, 68) ?? HPV testing performed by [facility], [place], [place]. ??See reference laboratory ?? pion of the EMR for entire report. ?Clinical Information LMP: Unknown date Previous PAP test: Unknown date, LSIL HPV+ ? Material Received ?? ThinPrep-Cervical ----- ------- Signed (signature on file) SAMAN Mayes (ASCP) 02/19/23 0815 ? ----- ------- ? END OF REPORT ? us Prabhjot Echols CNM LAB CYTOLOGY ORDERABLES F inal Result [facility] [address] [place] [address] [phone] from Last 3 Months or Most Recently Relevant to Health Maintenance [place] [address] [place] [address] HMO Care Teams Soaker Helper Relationship Specialty Start Date End Date Maryanne Crockett MD [address] [place] [address] PCP - General Family Medicine 06/29/18
== END 2024-09-16 13:36 | disposition home or self-care (01) ==
LOC: HO.US 13:35
PROVIDERS: PCP Family Medicine; Visit Provider Urology
DX: N39.46 Mixed incontinence (principal); R39.11 Hesitancy of micturition
CPT/HCPCS: 76775

== ENCOUNTER → 2024-09-16 13:37 | Outpatient (BNV) | payer BC, SELFPAY | PROVIDERS: PCP Family Medicine; Visit Provider Radiology Vascular & Interventional Radiology | DX: N39.46 Mixed incontinence (principal) | CPT/HCPCS: 76775 ==

== ENCOUNTER 2025-01-06 09:34 | Outpatient (AMB) | payer BC, SELFPAY ==
--- NOTE | 2025-01-05 20:00 | MHC.OFFVIS ---
Intake Visit Reasons: UsD Allergies amoxicillin (Amoxicillin) Allergy (Intermediate, Verified 09/08/24 13:45) SEVERE FACIAL SWELLING Penicillins Allergy (Intermediate, Verified 09/08/24 13:45) SEVERE FACIAL SWELLING HPI Comments Details: 01/06/2025-Selene is here for urodynamics. The patient has complaints of urinary incontinence. states she a sling [place] [address] Hugo Interpretation: During the filling phase there was [] sensation, [] sensory urgency was noted, [] strong desire was noted at [] mL. Bladder capacity was [] less than average, the patient felt that they were at capacity at [] mL and voided [] mL. Leakage [] was [] was not observed during cough or valsalva stress. Findings consistent with [] ISD [] less than average functional bladder capacity, [] detrusor overactivity. EMG- Appropriate changes in the waveforms were noted through out the study. . 09/08/24--here for cysto. Cystoscopy findings: no mesh material noted in bladder or urethra, WNL, no suspicious bladder lesions visualized. 29-year-old female presenting with urinary incontinence. The condition has persisted since her sling procedure in 2019, indicating continued leakage without significant change. Bladder prolapse has not been observed. Urinary Symptoms Review - Persistent urinary incontinence since sling procedure 08/19/24--Selene is a 29-year-old female who is here for evaluation for urinary incontinence. Patient has had 2 deliveries 1st 1 was vaginal and the 2nd child via in 2018. She states she a sling procedure in [address] Hugo at [facility] she had improvement in bladder control for about 3-4 months. She states that she does Kegel exercises. The urine leakage has progressively worsened she has leakage associated sexual activity, complains urgency and sometimes feels that she has difficulty emptying bladder. She had a bladder ultrasound bladder capacity 320 mL postvoid residual. Urinalysis today notes blood however the patient is menses. I have discussed evaluation with cystoscopy due to sling and we will check a ultrasound. Urinary symptoms are mixed including complaints of urgency, leakage of urine on associated with urgency or stress and intermittent hesitancy. [facility] History Cyst of brain FHx: migraine headaches Anxiety Surgical History Hx of section History of appendectomy Family History Mother No problems noted. 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 Information consent for procedure given to the patient. Discussed technical aspects, risks, benefits and alternatives in full. Addressed all of the patient's questions and concerns regarding the procedure. The patient demonstrated knowledge and understanding. They wish to proceed with this procedure. Preparation The patient was prepped in the usual manner. A senior environmental practice leader was present and in the room. Genitalia was prepped with betadine solution in a sterile manner. Procedure Complex Uroflow Complex uroflow performed by: Shelbie Moura Maximum urinary flow rate (mL/second): 24 Voiding time (seconds): 11 seconds Voided volume (mL): 104ml Residual urine (mL): 3ml Cystometrogram ? Vaginal/rectal catheter type: Vaginal First sensation at (mL): 7.8 mL First desire at (mL): 97 mL Strong desire to void occurred at (mL): 117 Strong desire detrusor pressure (cm H2O): 13 Maximum Capacity (mL): 120 Voiding Summary Voided with max detrusor pressure of (cm H2O): 58 Maximum flow rate (mL/second): 18 mL/s Voided volume (mL): ? 137 Calculated PVR: 0 mL Stress Testing Stress Test at 112 mL: Absent leak with Valsalva, Absent leak with cough DO Dry: 18ml, 104ml, 112ml DO Wet:120ml Prep: The patient was prepped in the usual manner. A senior environmental practice leader was present and in the room. Genitalia was prepped with betadine solution in a sterile manner. 43267-Vvyhnslfecdmjy w/ OSTOMY NURSE 69253-Bpwzcwk-Oheqvlstkmqi 68231-Xvhk/Urinary Muscle Study 71627-Gykkg-Jyzfenqye Pressure Test Procedure code (CPT) selection complete Results AMB Urinalysis, Automated UA Leukoctes 0 Euseiba/uL Last Edit by Lulu Skinner RN on 01/06/25 10:31 UA Nitrite Negative Last Edit by Lulu Skinner RN on 01/06/25 10:31 UA Urobilinogen 0.2 mg/dL Last Edit by Lulu Skinner RN on 01/06/25 10:31 UA Protein 0 mg/dL Last Edit by Lulu Skinner RN on 01/06/25 10:31 UA pH 6.0 Last Edit by Lulu Skinner RN on 01/06/25 10:31 UA Blood 0 Nikita/uL Last Edit by Lulu Skinner RN on 01/06/25 10:31 UA Specific [place] 1.0 Last Edit by Lulu Skinner RN on 01/06/25 10:31 UA Ketone Negative Last Edit by Lulu Skinner RN on 01/06/25 10:31 UA Bilirubin 0 mg/dL Last Edit by Lulu Skinner RN on 01/06/25 10:31 UA Glucose 0 mg/dL Last Edit by Lulu Skinner RN on 01/06/25 10:31 Assessment & Plan Assessment & Plan (1) OAB (overactive bladder): Code(s): N32.81 - Overactive bladder Category: Medical (2) Urinary urgency: Code(s): R39.15 - Urgency of urination Category: Medical Orders: Orders PT Evaluation and Treatment Today N32.81 - Overactive bladder, R39.15 - Urgency of urination AMB Urinalysis Automated Today Z13.9 - Encounter for screening, unspecified Medications: New mirabegron ER (Myrbetriq) 50 mg PO DAILY 30 tabs 5RF Coding Diagnoses OAB (overactive bladder) N32.81 Urinary urgency R39.15 CPT Codes Urodynamic Studies - CPT: 38856-Xdnpufryvhlvzq w/ OSTOMY NURSE ([id number]) Urodynamic Studies - CPT: 65197-Zuvlnbu-Mdypheetqiqj ([id number]) Urodynamic Studies - CPT: 70097-Yrif/Urinary Muscle Study ([id number]) Urodynamic Studies - CPT: 23687-Hpmtq-Nlhemnskf Pressure Test ([id number])
--- OUTSIDE RECORDS SUMMARY | 2025-01-06 09:51 | XMS_ITS | Encounter Summary ---
Author Organization [employer] Address [address] [place] [address] [address] [place] [address] Care Team Providers Care Pediatrics Hospitalist Name Role Phone Maryanne Crockett MD Primary Care Provider [phone] Encounter Details Date Type Department Care Team (Late st Contact Info) Description 02/23/2023 Orders Only [facility] [address] [place] [address] Maryanne Crockett MD [address] [place] [address] Upper back pain (Primary Dx); Neck pain [...] documented as of this encounter Care Teams Pediatrics Hospitalist Relationship Specialty Start Date End Date Maryanne Crockett MD [address] [place] [address] PCP - General Family Medicine 06/29/18 documented as of this encounter
== END 2025-01-06 10:27 | disposition home or self-care (01) ==
LOC: HO.HUSH 09:35
PROVIDERS: PCP Family Medicine; Visit Provider Urology
DX: N32.81 Overactive bladder (principal)
CPT/HCPCS: 51728; 51741; 51784; 51797

== ENCOUNTER → 2025-01-06 09:34 | Outpatient (BNVA) | payer BC, SELFPAY | PROVIDERS: PCP Family Medicine; Visit Provider Urology | DX: N32.81 Overactive bladder (principal); N39.46 Mixed incontinence | CPT/HCPCS: 51728; 51741; 51784; 51797; 81003 ==

== ENCOUNTER 2025-03-01 16:21 | Outpatient (AMB) | payer BC, SELFPAY ==
--- NOTE | 2025-03-01 16:21 | MHC.OFFVIS ---
Intake Visit Reasons: 8w/med review Intake Note: Patient is present for 8w/med review Urology Medication:Myrbetriq Antibiotic Allergy:PENICILLIN,AMOXICILLIN Blood Thinner:NONE Gis Application Developer Required: No Allergies amoxicillin (Amoxicillin) Allergy (Intermediate, Verified 03/01/25 16:22) SEVERE FACIAL SWELLING Penicillins Allergy (Intermediate, Verified 03/01/25 16:22) SEVERE FACIAL SWELLING HPI Comments Details: 03/01/25--Selene is a 29-year-old female prevents presents for telehealth follow-up. LUTS mixed urinary incontinence. H/O sling procedure for TYLER. She was last seen on 01/06/2025 for urodynamics findings consistent with detrusor overactivity. The patient was started on Myrbetriq 50 mg daily. History of Present Illness The patient is a 29-year-old female presenting for a follow-up on detrusor overactivity management. She was previously diagnosed with detrusor overactivity and was started on Myrbetriq 50 mg daily. The patient reports inconsistent medication adherence, which may affect symptom control. She experiences urinary urgency and incontinence, particularly when unable to reach the bathroom in time. The patient reports nocturia, waking one to two times per night to urinate, and frequent daytime urination every two hours. Plan Detrusor Overactivity - Increase Myrbetriq to twice daily for five days to assess symptom improvement. - Monitor for adverse effects such as headache or allergic reactions. - Document symptom changes and follow up to evaluate treatment efficacy. [facility] Medical History Cyst of brain FHx: migraine headaches Anxiety Surgical History Hx of section History of appendectomy Family History Mother No problems noted. 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[employer] Female Reproductive History Menstrual Age of Menarche: 9 Review of Systems Const All systems reviewed & are unremarkable except as noted in HPI and below Reports no additional complaints Eyes Reports no additional complaints ENT Reports no additional complaints Card Reports no additional complaints Resp Reports no additional complaints GI Reports no additional complaints Reports as per HPI Musc Reports no additional complaints Skin/Breast Reports system reviewed and no additional complaints, except as documented Neuro Reports no additional complaints Psych Reports no additional complaints Endo Reports no additional complaints Robinson/Lymph Reports no additional complaints Aller/Immun Reports no additional complaints Telehealth Telehealth Telehealth Platform: Telephone Location of provider rendering services: practice address Location of patient: address on file Patient Identification confirmed using: Name, : Yes Telehealth method: voice only Patient verbally consented to treatment: Yes Patient verbally consented to billing insurance company: Yes Patient informed of any privacy concerns related to visit: Yes Minutes spent on Phone/Video with Pt.: 14 Assessment & Plan Assessment & Plan (1) OAB (overactive bladder): Code(s): N32.81 - Overactive bladder Category: Medical (2) Urinary urgency: Code(s): R39.15 - Urgency of urination Category: Medical (3) Mixed stress and urge urinary incontinence: Code(s): N39.46 - Mixed incontinence Category: Medical Plan Plan TYLER- s/p Sling procedure Detrusor Overactivity - Increase Myrbetriq to twice daily for five days to assess symptom improvement. - Monitor for adverse effects such as headache or allergic reactions. - Document symptom changes and follow up to evaluate treatment efficacy. Patient Instructions: The patient had an opportunity to ask questions regarding treatment plan. The patient expressed understanding and agreement with the above treatment plan. The patient is aware they should contact our office by phone for worsening of their current condition or the appearance of new symptoms. Compliance is encouraged with any medications and followup testing that is ordered. It is a privilege to be allowed the opportunity to participate in the urologic care of your patient. If you have any questions or concerns regarding treatment for the above conditions please do not hesitate to contact me. The office telephone contact is [phone]. This note is constructed in part using voice recognition software. While every effort has been made to ensure accuracy bone grinder errors may have been included. Yours sincerely, Shelbie Moura MD Scribe Plan - Not visible on output: Patient was informed and verbally consented to the use of an ambient scribe for clinic note documentation during this visit. Coding Level of Care Code Tele Est Pt Level 3 (20681) Diagnoses OAB (overactive bladder) N32.81 Urinary urgency R39.15 Mixed stress and urge urinary incontinence N39.46
--- OUTSIDE RECORDS SUMMARY | 2025-03-01 17:55 | XMS_ITS | Encounter Summary ---
Author Organization [employer] Address [address] [place] [address] [address]t [place] [address] Care Team Providers Care Relay Assembler Name Role Phone Maryanne Crockett MD Primary Care Provider [phone] Encounter Details Date Type Department Care Team (Late st Contact Info) Description 02/23/2023 Orders Only [facility] [address] [place] [address] Maryanne Crockett MD [address] [place] [address] Upper back pain (Primary Dx); Neck pain [...] documented as of this encounter Care Teams Relay Assembler Relationship Specialty Start Date End Date Maryanne Crockett MD [address] [place] [address] PCP - General Family Medicine 06/29/18 documented as of this encounter
--- OUTSIDE RECORDS SUMMARY | 2025-03-01 17:55 | XMS_ITS | Encounter Summary ---
Author Organization [employer] Address [address] [facility] 7t [place] [address] Care Team Providers Care Safety Relief Valve Technician Name Role Phone Maryanne Crockett MD Primary Care Provider [phone] Encounter Details Date Type Department Care Team ([facility] st Contact Info) Description 06/19/2023 Orders Only [facility] MEDICINE [address] [place], [place] [phone] Maryanne Crockett MD [address] [place], [place] [phone] Social History Tobacco Use Types Packs/Day Years [...] documented as of this encounter Care Teams Safety Relief Valve Technician Relationship Specialty Start Date End Date Maryanne Crockett MD [address] [place] [address] PCP - General Family Medicine 06/29/18 documented as of this encounter
--- OUTSIDE RECORDS SUMMARY | 2025-03-01 17:55 | XMS_ITS | Encounter Summary ---
Author Organization [employer] Address [address] [place] [address] [place] [address] Care Team Providers Care Healthcare Management Consultant Name Role Phone Maryanne Crockett MD Primary Care Provider [phone] Encounter Details Date Type Department Care Team (Late st Contact Info) Description 02/04/2023 Orders Only [facility] [address] [place] [address] [place] [address] Social History Tobacco Use Types Packs/Day Years [...] MD IN CLINIC/BEDSIDE ORDERABLES Fin al Result [facility] [address] [place] [address] [phone] documented in this encounter Visit Diagnoses Not on filedocumented in this encounter Care Teams Healthcare Management Consultant Relationship Specialty Start Date End Date Maryanne Crockett MD [address] [place] [address] PCP - General Family Medicine 06/29/18 documented as of this encounter
--- OUTSIDE RECORDS SUMMARY | 2025-03-01 17:55 | XMS_ITS | Encounter Summary ---
Author Organization [employer] Address [address] [place] [address] 7 [place] [address] Care Team Providers Care Building Carpenter Helper Name Role Phone Maryanne Crockett MD Primary Care Provider [phone] Reason for Visit * Reason Onset Date Comments Nurse Triage 06/18/2023 Encounter Details Date Type Department Care Team ([facility] st Contact Info) Description 06/18/2023 Telephone [facility] MEDICINE [address] [place], [place] [phone] Maryanne Crockett MD [address] [place], [place] [phone] Nurse Triage Social History Tobacco Use Types [...] for the past 2 Days Patient speaks Tanzanian. Advised triage nurse will call patient back. documented in this encounter Plan of Treatment Not on file documented as of this encounter Visit Diagnoses Not on filedocumented in this encounter Additional Health Concerns Assessment Noted Time PHQ-9 Depression Total Score: 12 023 9:16 AM EDT documented as of this encounter Care Teams Building Carpenter Helper Relationship Specialty Start Date End Date Maryanne Crockett MD [address] [place] [id number] PCP - General Family Medicine 06/29/18 documented as of this encounter
--- OUTSIDE RECORDS SUMMARY | 2025-03-01 17:55 | XMS_ITS | Encounter Summary ---
Author Organization [employer] Address [address] [facility] 7 [place] [address] Care Team Providers Care Manual Qa Tester Name Role Phone Maryanne Crockett MD Primary Care Provider [phone] Reason for Visit * Reason Onset Date Comments Letter for School/Work 04/24/2023 Encounter Details Date Type Department Care Team ([facility] Contact Info) Description 04/24/2023 Telephone [facility] MEDICINE [address] [place], [place] [phone] Maryanne Crockett MD [address] [place], [place] [phone] Letter for School/Work Social History Tobacco Use [...] Tc from patient requesting statues of [facility] paperwork states place of employment faxed documents over any questions please call [phone] documented in this encounter Plan of Treatment Not on file documented as of this encounter Visit Diagnoses Not on filedocumented in this encounter Additional Health Concerns Assessment Noted Time PHQ-9 Depression Total Score: 12 023 9:16 AM EDT documented as of this encounter Care Teams Manual Qa Tester Relationship Specialty Start Date End Date Maryanne Crockett MD [address] [place] [phone] PCP - General Family Medicine 06/29/18 documented as of this encounter
--- OUTSIDE RECORDS SUMMARY | 2025-03-01 17:55 | XMS_ITS | Encounter Summary ---
Author Organization [employer] Address [address] [place] [address] 7t [place] [address] Care Team Providers Care Lightning Protection Installer Name Role Phone Maryanne Crockett MD Primary Care Provider Encounter Details Date Type Department Care Team (Late st Contact Info) Description 02/24/2023 Orders Only [facility] MEDICINE [address] [place], [place] [phone] Maryanne Crockett MD [address] [place], [place] [phone] Positive YORDAN (antinuclear antibody) (Primary Dx); Arthralgia, [...] documented as of this encounter Care Teams Lightning Protection Installer Relationship Specialty Start Date End Date Maryanne Crockett MD [address] [place] [address] PCP - General Family Medicine 06/29/18 documented as of this encounter
--- OUTSIDE RECORDS SUMMARY | 2025-03-01 17:55 | XMS_ITS | Encounter Summary ---
Author Organization [employer] Address [address] [place] [address] 7 [place] [address] Care Team Providers Care Audio Visual Specialist Name Role Phone Maryanne Crockett MD Primary Care Provider [phone] Reason for Visit * Reason Onset Date Comments Med Refill 07/08/2024 Encounter Details Date Type Department Care Team ([facility] st Contact Info) Description 07/08/2024 Refill [facility] MEDICINE [address] [place], [place] [phone] Maryanne Crockett MD [address] [place], [place] [phone] Social History Tobacco Use Types Packs/Day Years [...] documented as of this encounter Care Teams Audio Visual Specialist Relationship Specialty Start Date End Date Maryanne Crockett MD [address] [place] [address] PCP - General Family Medicine 06/29/18 documented as of this encounter
--- OUTSIDE RECORDS SUMMARY | 2025-03-01 17:56 | XMS_ITS | Clinical Summary ---
Author Organization [employer] Address [address] [facility] [address] [place] [address] Care Team Providers Care Mlt Name Role Phone Maryanne Crockett MD Primary Care Provider [phone] Allergies Active Allergy Reactions Criticality Noted Date Comments Amoxicillin Hives 06/11/2012 Other reaction(s): Hives / Skin Rash Medications * This document contains information received from the source organization and may not represent a complete record from that organization. lidocaine (Lidoderm) 5 % patch Apply 1 patch topically Once per day. Remove & discard patch within 12 hours or as directed by MD. 30 patch 2 4 Active escitalopram (Lexapro) 20 MG tablet TAKE 1 TABLET BY MOUTH EVERY MORNING 90 tablet 1 5 Active naproxen (Naprosyn) 500 MG tabletIndicatio ns:Right hip pain Take 1 tab twice daily for 1 week and the as needed for pain, up to BID 40 tablet 1 5 Active valACYclovir (Valtrex) 500 MG tablet Take 1 tablet (500 mg) by mouth 2 times daily. 60 tablet 3 5 Active Active Problems Problem Noted Date Diagnosed Date Cannabis use disorder 10/28/2024 Mixed stress and urge urinary incontinence 06/08 [...] 02/19/23 YORDAN titer 1:320 - seen by botanical technical officer [facility], and suggested that [...] 02/19/23 YORDAN titer 1:320 - seen by botanical technical officer, and suggested that it was false positive [...] tried physical therapy - upcoming appointment with botanical technical officer Assessment & Plan (01/27/2024 2:29 PM EDT): [...] equivalent combination of moderate- and vigorous-intensity activity MICHELLE (generalized anxiety disorder) 04/20/2023 Assessment & Plan (04/06/2024 6:01 AM [...] regulate emotions. Selene reported she called the [facility] program as recommended during our first session. She has upcoming appointment with [facility] for OP individual therapy on 05/28. She [...] change PLAN: 1. Follow up with [facility]: Not recommended for follow-up 2. Patient goal [...] Shared information for the [facility] program with [facility] for walk-in appointments and urgent care if needed. At this time Selene Gray meets criteria for Visit Diagnoses: Problem List Items Addressed This Visit Other Moderate episode of recurrent major depressive disorder (CMS/HCC) Anxiety Work-related stress Patient ready to address current needs Yes Strengths include readiness and motivation to change PLAN: 1. Follow up with [facility]: Recommended for follow-up: Scheduled BE in a month 2. Patient goal is to start individual therapy and feel less depressed 3. Behavioral Recommendations a. Referral for OP individual therapy b. Contact [facility] program if needed for walk-in appointments or [...] regulate emotions. Selene reported she called the [facility] program as recommended during our first session. She has upcoming appointment with [facility] for OP individual therapy on 05/28. She [...] change PLAN: 1. Follow up with [facility]: Not recommended for follow-up 2. Patient goal [...] cope with emotions. Shared information for the [facility] program with [facility] for walk-in appointments and urgent care if needed. At this time Selene Gray meets criteria for Visit Diagnoses: Problem List Items Addressed This Visit Other Moderate episode of recurrent major depressive disorder (CMS/HCC) Anxiety Work-related stress Patient ready to address current needs Yes Strengths include readiness and motivation to change PLAN: 1. Follow up with [facility]: Recommended for follow-up: Scheduled BE in a month 2. Patient goal is to start individual therapy and feel less depressed 3. Behavioral Recommendations a. Referral for OP individual therapy b. Contact [facility] program if needed for walk-in [...] antibody and decreased complement - evaluated by [facility] rheumatology in Jan 2023 - referred to another , upcoming appointment with Dr. Alexander - possible fibromyalgia - continue staying physically active / exercising for both mental and physical health Assessment & Plan (01/27/2024 2:32 PM EDT): - evaluated for rheumatological disorder: YORDAN titer 1:320 in Jan 2023; positive anti-ds DNA antibody and decreased complement - evaluated by [facility] rheumatology in Jan 2023 - refer to another rheumatology - possible fibromyalgia - continue staying physically active / exercising for both mental and physical health Assessment & Plan (02/19/2023 1:21 PM EDT): - evaluate for rheumatological disorder - possible fibromyalgia - consider referring to botanical technical officer - continue cyclobenzaprine and APAP prn - continue exercising - follow up in 6 mo Moderate episode of recurrent major depressive d isorder 07/21/2022 Assessment & Plan (08/08/2024 7:28 PM EST): - PHQ9 score 12 in Mar 2023 - seen by [facility] service - she did not [...] first session. She has upcoming appointment with [facility] for OP individual therapy on 05/28. She [...] change PLAN: 1. Follow up with [facility]: Not recommended for follow-up 2. Patient goal [...] Shared information for the [facility] program with [facility] for walk-in appointments and urgent care if needed. At this time Selene Gray meets criteria for Visit Diagnoses: Problem List Items Addressed This Visit Other Moderate episode of recurrent major depressive disorder (CMS/HCC) Anxiety Work-related stress Patient ready to address current needs Yes Strengths include readiness and motivation to change PLAN: 1. Follow up with [facility]: Recommended for follow-up: Scheduled BE in a month 2. Patient goal is to start individual therapy and feel less depressed 3. Behavioral Recommendations a. Referral for OP individual therapy b. Contact [facility] program if needed for walk-in appointments or urgent care c. Incorporate self-care and mindfulness techniques into daily routine Assessment & Plan (02/19/2023 1:19 PM EDT): - hx of suicidal attempt in October 2020 by OD on Psych medication. -Increase escitalopram 10 mg daily -Seen by [facility] clinician 04/15/21. -Continue journaling, which helped in [...] AM EDT): - Pt was following with [facility] neurology, last visit in September 2022, safely [...] PM EDT): - Pt is following with [facility] neurology, last visit in September 2022, safely [...] PM EDT): - Pt is following with [facility] neurology, last visit in September 2022, safely [...] PM EST): - Pt is following with [facility] neurology, last seen on 04/01/22; - Currently [...] 6:00 AM EDT): -Pt missed appt w/ Modeling Teacher at [facility], and was going to contact another clinical project coordinator of her choice. - continue working on building healthy relationship with food and eating Assessment & Plan (07/21/2022 10:39 AM EST): Pt missed appt w/ Modeling Teacher at [facility]. -Pt states she has contact for another clinical project coordinator; she will contact new clinical project coordinator. Allergic rhinitis 12/28/2013 Assessment & Plan (04/06/2024 [...] female 04/16/2015 02/19/2023 Adjustment disorder 04/16/2015 01/27/20 Overweight 12/28/2013 11/05/2023 Assessment & Plan (02/19/2023 1:07 PM EDT): - continue working on lifestyle modifications - she started exercising and is noticing its beneficial effect on both mental and physical health Assessment & Plan (07/21/2022 10:06 PM EST): - continue working on lifestyle modifications Encounters Date Type Department Care Team Description 12/27/2024 Telephone [facility] [address] [place] [phone] Maryanne Crockett MD 12/27/2024 Travel 12/26/2024 Telephone [facility] [address] [place] [address] Maryanne Crockett MD Chart Prep from Last 3 Months Immunizations Immunization Administration Dates Next Due HPV, Quadrivalent 09/13/2010,05/22/2010,02/01/20 10 Hep B, adult 06/16/2018,01/22/2015,12/20/2014 Influenza injectable quadriv alent IIV4 with preservative 03/23/2017,03/18/2016,04/16/2015 Influenza injectable quadriv alent preservative free 04/02/2022,05/06/2021,08/05/2019,2017 Influenza, IIV3, injectable 04/11/2014, 2,05/22/2010 Influenza, Injectable, MDCK, preservative free 07/08/2024 Influenza, Split (incl. papito fied surface antigen) [...] Answer Date Recorded Patient Health Questionnaire-9 Score 15 10/28/2024 Patient Health Questionnaire-9 Score 15 10/28/2024 Last PHQ-9: Questionnaire Data Not on file 0 10/28/2024 Housing Stability Answer Date Recorded What is [...] Answer Date Recorded Patient Health Questionnaire-2 Score 4 10/28/2024 Internet Access Answer Date Recorded Internet Access [...] Sign Reading Time Taken Comments Blood Pressure 117/66 10/20/2024 2:34 PM EDT Pulse 70 10/20/2024 2:34 PM EDT Temperature 36.9 C (98.5 F) 06/08/2024 3:01 PM EST Respiratory Rate 18 10/20/2024 2:34 PM EDT Oxygen Saturation 99% 06/08/2024 3:01 PM EST Inhaled Oxygen Concentration - - Weight 87.5 kg (192 lb 12.8 oz) 10/20/2024 2:34 PM EDT Height 166.4 cm (5' 5.5 ) 10/20/2024 2:34 PM EDT Body Mass Index 31.6 10/20/2024 2:34 PM EDT Plan of Treatment Health Maintenance Due Date Last Done Comments Disability Screening 1995 Family Planning (PISQ) 2008 Pneumococcal Vaccine: Pediatrics (0 to 5 Years) and At-Risk Patients (6 to 49) Years (1 of 2 - PCV) 2012 Zoster Vaccines (1 of 2) 2012 COVID-19 Vaccine ( - season) 2024 07/21/2022, 05/31/2021, 05/02/2021 Influenza Vaccine (#1) 2025 , 04/02/2022, 05/06/2021, Additional history exists SDOH Screening 03/29/2025 03/29/2024 Depression Monitoring 04/30/2025 10/28/2024, 025 Alcohol/Substance Use Screening 08/08/2025 08/08/2024 Tobacco Screening 10/20/2025 10/20/2024 Cervical Cancer Screening 02/02/2026 HPV/Cotest 02/02/2026 02/02/2023, 01/21/2022 Pap Smear 02/02/2026 02/02/2023, 01/21/2022 Lipid Panel 01/15/2029 01/16/2024 DTaP/Tdap/Td Vaccines (3 - Td or Tdap) 02/19/2033 02/19/2023, 01/12/2013 RSV Patients and Patients Aged 60 years or older (1 - 1-dose 75+ series) 2068 HPV Vaccines Completed 09/13/2010, 04/30, 01/31/2010 Hepatitis B Vaccines Completed 06/16/2018, 01/22/2015, 12/20/2014 HIV Screening Completed 02/19/2023, 10/0 12/2020, 11/27/2020, Additional history exists Hepatitis C Screening Completed 02/19/2023, 020 HIB Vaccines Aged Out No longer eligi ble based on patient's age to complete this topic Hepatitis A Vaccines Aged Out No long er eligible based on patient's age to complete this topic IPV Vaccines Aged Out No longer eligi ble based on patient's age to complete this topic Meningococcal B Vaccine Aged Out No l onger eligible based on patient's age to complete [...] Procedure Name Priority Date/Time Associated Diagnosis Comments LIPID PANEL, STANDARD Routine 01/16/2024 10:32 AM [...] Recently Relevant to Health Maintenance Results * Lipid Panel, Standard (01/16/2024 10:32 AM EDT) Triglycerides 59 <150 mg/dL [facility] Comment:Desirable Triglyceri de: less than 150 mg/dLBorderline High Triglyceride 150-199 mg/dLHigh Triglyceride: 200-499 mg/dLVery High Triglyceride: greater than or equal to 5OO mg/dL Cholesterol 158 <200 mg/dL [facility] Comment:Desirable Cholestero l: less than 200 mg/dLBorderline High Cholesterol: 200-239 mg/dLHigh Cholesterol: greater than 239 mg/dL LDL Cholesterol Calculated 99 <100 mg/dL [facility] Comment:Desirable LDL: less than 100 mg/dLNear Optimal/Above Optimal LDL: 110- 129 mg/dLBorderline High LDL: 130-159 mg/dLHigh LDL: 160-189 mg/dLVery High LDL: greater than or equal to 190 mg/dL HDL Cholesterol 48 >40 mg/dL [facility] Comment:Desirable HDL: great er than 40 mg/dL Note: This HDL assay may give artificially low results in patients with liver disease. Blood Venous blood specimen / Unknown 01/16/2024 10:32 AM EDT 01/16/2024 10:32 AM EDT us Hortencia Olsen DO LAB BLOOD ORDERABLES Final R esult Performing Organization Address [facility] de Phone Number [facility] [address] [place] [phone] * Hepatitis C Antibody Reflex (02/19/2023 11:51 AM EDT) Hepatitis C Antibody Nonreactive Nonreactive [facility] Comment:Antibodies to HCV no t detected; does not exclude early acuteHCV infection. 02/19/2023 11:5 1 AM EDT 02/19/2023 1:41 PM EDT us Maryanne Crockett MD LAB BLOOD ORDERABLES Final Resul t Performing Organization Address City/[facility] Co de Phone Number [facility] [address] [place] [phone] * HIV Ab/Ag ([facility]) (02/19/2023 11:51 AM EDT) HIV AB/AG Nonreactive Nonreactive [facility] Comment:HIV-1 p24 Ag and/or HIV-1/HIV-2 Ab not detected.A test result that is nonreactive does not exclude thepossibility of exposure to or infection with HIV-1 and/orHIV-2. Nonreactive results in this assay for individualswith prior exposure to HIV-1 and/or HIV-2 may be due toantigen and antibody levels that are below the limit ofdetection of this assay.The [employer] HIV Ag/Ab Combo assay result andsupplemental assay results should be interpreted inconjunction with the patient's clinical presentation,history and other laboratory results. If the results areinconsistent with clinical evidence, additional testing issuggested to confirm the result. 02/19/2023 11:5 1 AM EDT 02/19/2023 1:41 PM EDT us Maryanne Crockett MD LAB BLOOD ORDERABLES Final Resul t [facility] [address] [place] [address] [phone] * HPV mRNA E6/E7 w/Reflex to HPV Genotypes 16, 18/45 (02/02/2023 11:17 AM EDT) HPV nRNA E6/E7 Not Detected Not Detected [facility] Comment:Methodology: Transcr iption-Mediated AmplificationThis assay detects E6/E7 viral messenger RNA (mRNA) from 14high-risk HPV types (16,18,31,33,35,39,45,51,52,56,58,59,66,68).Cervical sources are required for HPV testing.If a vaginal source from a patient who has had atotal hysterectomy with removal of cervix wassubmitted, please contact the testing laboratoryfor alternative testing options.For additional information, please refer tohttp://education.questdiagnostics.com/faq/IDU470y1(This link if provided for information/educational purposes only.)THIS TEST WAS PERFORMED AT:[facility] [place] [phone] RABAGO MD HPV mRNA E6/E7 TNP [facility] HPV 16 RNA TNP [facility] HPV 18/[address] [facility] 02/02/2023 11:1 7 AM EDT 02/03/2023 10:40 AM EDT us Ashly Echols CNM LAB CYTOLOGY ORDERABLES F inal Result [facility] [address] [place] [phone] * Pap Smear (02/02/2023 11:17 AM EDT) 02/02/2023 11:1 7 AM EDT 02/03/2023 10:40 AM EDT Narrative [facility] - 02/19/2023 8:15 AM EDT ----- ------- Name: Selene Gary I Age/Sex: 27/F : 1995 Unit#: [id number] Attend Dr: ASHLY ECHOLS CNM Re02/02/23 Status: DEP REF Location: HO.HHCLNP Disch: ----- ------- SPEC : [id number] RECD: 02/03/23 STATUS: SHAY MERCADO NUM: [id number] AICHA: 02/02/23-[address] [facility] [address]: ASHLY ECHOLS CNM ENTERED: 02/04/23-1203 SP TYPE: Pap Smr OTHR DR: ORDERED: Pap Smear Interpretation Satisfactory for evaluation. Negative for intraepithelial lesion or malignancy. HPV mRNA E6/E7: NOT DETECTED This assay detects E6/E7 viral messenger RNA (mRNA) from 14 high-risk HPV types (16, 18, 31, 33, 35, 39, 45, 51, 52, 56, 58, 59, 66, 68) HPV testing performed by [facility], [place], [place]. See reference laboratory pion of the EMR for entire report. Clinical Information LMP: Unknown date Previous PAP test: Unknown date, LSIL HPV+ Material Received ThinPrep-Cervical ----- ------- Signed (signature on file) SAMAN Mayes (ASCP) 02/19/23 0815 ----- ------- END OF REPORT Ashly Echols CNM LAB CYTOLOGY ORDERABLES F inal Result [facility] [address] [place] [address] [phone] from Last 3 Months or Most Recently Relevant to Health Maintenance Insurance HMO Care Teams Mlt Relationship Specialty Start Date End Date Maryanne Crockett MD [address] [place] [phone] PCP - General Family Medicine 06/29/18
== END 2025-03-01 17:00 | disposition home or self-care (01) ==
LOC: HO.HUSH 16:21
PROVIDERS: PCP Family Medicine; Visit Provider Urology
DX: N32.81 Overactive bladder (principal); R39.15 Urgency of urination
CPT/HCPCS: 99213